=== PATIENT | female | born 1955 | race Caucasian/White ===

== ENCOUNTER → 2017-06-12 18:50 | Outpatient (REF) | payer BC, SELFPAY | LOC: LAB 18:50 | PROVIDERS: Visit Provider Internal Medicine | DX: N39.0 Urinary tract infection, site not specified (principal) | CPT/HCPCS: 87086 ==

== ENCOUNTER → 2017-07-30 14:35 | Outpatient (CLI) | payer BC, SELFPAY ==
--- NOTE | 2017-07-30 14:45 | US_ITS ---
US kidney retroperitoneal comp HISTORY: ITS.REASON: HEMATURIA ORDERING PHYSICIAN: Selwyn Zaidi PATIENT AGE: 62 years FINDINGS: RIGHT KIDNEY:10.5 x 4.5 x 6.2 cm. No hydronephrosis. 19 x 17 mm cyst present in the upper pole. Unremarkable echogenicity LEFT KIDNEY:10 x 6 x 5 cm. No hydronephrosis. 23 mm parapelvic cyst. 42 x 27 mm lower pole left renal cyst. OTHER FINDINGS: Bilateral renal blood flow present. Minimal bilateral renal cortical thinning IMPRESSION: 1. No hydronephrosis. 2. Bilateral renal cysts with minimal cortical thinning
== END ==
PROVIDERS: Family Provider Internal Medicine; PCP Internal Medicine; Visit Provider Internal Medicine
DX: R31.9 Hematuria, unspecified (principal)
CPT/HCPCS: 76770

== ENCOUNTER → 2018-01-20 10:34 | Outpatient (CLI) | payer BC, SELFPAY ==
[2018-01-22 14:18] LABS: Metanephrine, Ur 75 ug/L (Undefined); Normetanephrine, Ur 245 ug/L (Undefined)
[2018-01-22 15:57] LABS: Metanephrine, U,24hr 120 ug/24 hr (45-290); Normetanephr.,U,24h 392 ug/24 hr (82-500)
[2018-01-23 17:42] LABS: VMA, Urine 2.4 mg/L (Undefined)
[2018-01-24 06:41] LABS: VMA, Urine, 24hr 3.8 mg/24 hr (0.0-7.5)
== END ==
PROVIDERS: PCP Internal Medicine; Visit Provider Internal Medicine
DX: I10 Essential (primary) hypertension (principal)
CPT/HCPCS: 83835; 84585

== ENCOUNTER → 2018-01-21 12:58 | Outpatient (CLI) | payer BC, SELFPAY ==
[2018-01-24 02:08] LABS: Dopamine, Urine 178 ug/L (Undefined); Epinephrine, U, 24hr <1 ug/24 hr (0-20); Epinephrine, Urine <1 ug/L (Undefined); Norepinephrine, Ur 21 ug/L (Undefined); Norepinephrine,U,24h 25 ug/24 hr (0-135)
[2018-01-24 06:44] LABS: Dopamine, Ur, 24hr 214 ug/24 hr (0-510)
== END ==
PROVIDERS: PCP Internal Medicine; Visit Provider Internal Medicine
DX: I10 Essential (primary) hypertension (principal)
CPT/HCPCS: 82384

== ENCOUNTER → 2018-07-28 09:55 | Outpatient (CLI) | payer BC, SELFPAY | PROVIDERS: PCP Internal Medicine; Visit Provider Internal Medicine | DX: R07.9 Chest pain, unspecified (principal) | CPT/HCPCS: 93005 ==

== ENCOUNTER → 2019-07-22 09:27 | Outpatient (CLI) | payer BC, SELFPAY ==
--- NOTE | 2019-07-22 09:36 | XR_ITS ---
PROCEDURE: XR HAND RT MIN 3V CLINICAL INDICATION: S/P FALL, INJURY RT HAND/WRIST Medial pain following injury COMPARISON: No exams were available for comparison FINDINGS: No fracture or dislocation. No lytic or blastic change. There is normal mineralization. The joint spaces are well-preserved. No significant degenerative/arthritic changes. No erosive changes evident. Other findings:None. IMPRESSION: No acute findings. Dictated by: José Miguel Ng MD 07/22/2019 11:50 Electronically signed by José Miguel Ng MD in [place] 07/22/2019 11:50
--- NOTE | 2019-07-22 09:36 | XR_ITS ---
PROCEDURE: XR WRIST RT MIN 3V CLINICAL INDICATION: S/P FALL, INJURY RT HAND/WRIST Medial pain following injury COMPARISON: No exams were available for comparison FINDINGS: No fracture or dislocation. No lytic or blastic change. There is normal mineralization. The joint spaces are well-preserved. No significant degenerative/arthritic changes. No erosive changes evident. Other findings:None. IMPRESSION: No acute findings. Dictated by: José Miguel Ng MD 07/22/2019 11:46 Electronically signed by José Miguel Ng MD in [place] 07/22/2019 11:46
== END ==
PROVIDERS: PCP Internal Medicine; Visit Provider Internal Medicine
DX: M79.641 Pain in right hand (principal); M25.531 Pain in right wrist
CPT/HCPCS: 73110; 73130

== ENCOUNTER → 2019-08-13 09:18 | Outpatient (CLI) | payer BC, SELFPAY ==
--- NOTE | 2019-08-13 09:26 | US_ITS ---
PROCEDURE: US KIDNEY CLINICAL INDICATION: ABNORMAL LABS Elevated renal functions COMPARISON: RETROPCM US kidney retroperitoneal comp from 07/30/2017 FINDINGS: The right kidney is [id number]. No hydronephrosis, cortical thinning, or renal mass or perinephric fluid collection is evident. The left kidney is [id number]. No hydronephrosis, cortical thinning, or renal mass or perinephric fluid collection is evident. There is a 3 cm cyst in the upper pole of the right kidney and a 4 cm cyst along the lower pole of the left kidney IMPRESSION: Bilateral renal cyst otherwise negative renal ultrasound Dictated by: José Miguel Ng MD 08/13/2019 10:28 Electronically signed by José Miguel Ng MD in [facility] 08/13/2019 10:28
--- NOTE | 2019-08-13 09:26 | US_ITS ---
PROCEDURE: US URINARY BLADDER CLINICAL INDICATION: ABNORMAL LABS Elevated creatinine COMPARISON: No exams were available for comparison FINDINGS: The bladder has an unremarkable appearance with an estimated volume of 131 mL. No obvious mass. Postvoid images are obtained showing only minimal amount of residual of 4 mm. IMPRESSION: Unremarkable urinary bladder ultrasound Dictated by: José Miguel Ng MD 08/13/2019 10:37 Electronically signed by José Miguel Ng MD in [facility] 08/13/2019 10:37
[2019-08-13 10:47] LABS: Microscopic, Urine URINE MICROSCOPIC (MICROSCOPIC)
[2019-08-13 10:59] LABS: Appearance,Urine CLEAR (Clear); Bilirubin,Urine Negative (Negative); Blood, Urine TRACE-L (Negative); Color,Urine YELLOW (Yellow); Glucose,Urine (UA) Negative (Negative); Ketones,Urine Negative (Negative); Leukocyte Esterase,Urine Negative (Negative); Nitrate,Urine Negative (Negative); PH,Urine 5.5 (5.0-8.5); Protein,Urine Negative (Negative); Specific Gravity, Urine 1.015 (1.005-1.030); Urobilinogen,Urine 0.2 EU/dl (0.2)
[2019-08-13 11:52] LABS: RBC,Urine Occasional #/hpf (0-3)
[2019-08-13 11:53] LABS: Bacteria,Urine Trace /lpf
== END ==
PROVIDERS: PCP Internal Medicine; Visit Provider Internal Medicine
DX: R94.4 Abnormal results of kidney function studies (principal)
CPT/HCPCS: 76770; 76857; 81001

== ENCOUNTER → 2019-08-18 11:43 | Outpatient (CLI) | payer BC, SELFPAY ==
[2019-08-18 18:12] LABS: Collection Time,Urine 24 hours; Total Volume,Urine 2600 mL (600-1600)
[2019-08-18 18:23] LABS: Creatinine 24 Hour,Urine 1508 mg/24hr (630-2500); Creatinine,Urine Random 58 mg/dL (Not Estab.); Total Protein 24 Hour,Urine 234 mg/24 hr (40-90)
[2019-08-18 18:59] LABS: Creatinine Clearance Urine 96.3 mL/min (25-115); Patient Height,Urine 62 inches; Patient Weight,Urine 194 lbs
== END ==
PROVIDERS: Visit Provider Internal Medicine
DX: R94.4 Abnormal results of kidney function studies (principal)
CPT/HCPCS: 36415; 82575; 84155

== ENCOUNTER 2020-04-01 15:43 | Emergency (ER) | payer BC, SELFPAY ==
[2020-04-01 16:22] VITALS: PULSE 87; RESP 16; TEMP 36.8; O2SAT 98; BMI 29.1
--- NOTE | 2020-04-01 16:35 | HMH.EDUTC ---
[facility] Disposition Clinical Impression: Exposure to COVID-19 virus Disposition: Home, Self-Care Condition on Discharge: Good Instructions: DI for COVID-19 (Suspected or Confirmed ), Coronavirus Disease 2019, COVID-19: Testing and Tracing, Preventing the Spread of Coronavirus Discharge Instructions Additional Instructions: *Monitor Temp, Over the counter Motrin or Tylenol as directed/as needed Tylenol every 4 hours and Motrin every 6 hours (as long as your family doctor has told you that you can take it) for fever or pain. and straight to ER if unable to lower temp less than 101.0 after medication given Follow up IMMEDIATELY for new or worsening symptoms or no Noticeable improvement over the next 48-72 hours. 911 for difficulty breathing or swallowing You were tested for today for COVID19 your test result should be back in the next 24-48 hours, you may call to the [facility] to see if your test results are back in the next 48 hours [phone] [facility] hours are 9am-9pm You was given a handout with instructions for Self Quarantine and Self isolation for while you wait on test results and what to do if they are positive If you are positive the Health Dept will be contacting you also Referrals: Selwyn Zaidi [Primary Care Provider] - As needed Time of Disposition: 16:36 Medical Decision Making - Ibrahima Inquiry Pt receiving controlled substance: No Ibrahima was queried for this patient: No Vital Signs: 04/01/20 16:22 Temperature 98.2 F Temperature Source Oral Pulse Rate [Right] 87 Respiratory Rate 16 02 Sat by Pulse Oximetry 98 Oxygen Delivery Method Room Air Orders (Tests/Meds): ORDERS Category Date Time Status Covid-19 Nasal PCR ([facility]) Routine Lab 04/01/20 15:51 Ordered [facility] HPI - General Stated complaint: covid test Time Seen by Provider: 04/01/20 16:35 Mode of Arrival: Ambulatory Source of Information: Patient Limitations: No Limitations Description of Symptoms (Recalled from Triage Doc. by RN): wants covid test. denies any symptoms HEENT Symptoms (Recalled from RN notes): No Resp Symptoms (Recalled from RN notes): No Skin Symptoms (Recalled from RN notes): No MS Symptoms (Recalled from RN notes): No Functional Status (Recalled from RN notes): na - History of Present Illness Provider Complaint: Patient reports that she was recently around someone that tested positive for COVID but not having any symptoms due to close exposure she wanted to come in and get tested - Related Data Previous Rx's Medication Instructions Recorded Azithromycin [Zithromax 250mg 250 mg PO DIRECTED #4 tab 06/28/18 tab] Allergies Allergy/AdvReac Type Severity Reaction Status Date / Time No Known Allergies Allergy Verified 06/28/18 18:52 - Worker's Comp Is this a Worker's Comp case?: No [facility] History - Hepatitis A Screen Drug use history?: No High risk sexual behaviors?: No History of sexually transmitted infection?: No Currently employed?: No Childcare worker?: No Do you have indoor plumbing?: Yes Do you have electricity?: Yes Attestation statement:: This patient has been screened for Hepatitis A risk factors. I have reviewed the patient's past medical history: Yes Laterality Cases: Bilateral: Tonsillectomy - Social History Alcohol Intake: never Occupational Status: employed ROS Obtained: Yes All systems reviewed & no additional complaints, Yes Systems reviewed as appropriate & no additional complaints - Constitutional Constitutional: Reports system reviewed and no additional complaints, except as docu, Denies body ache, Denies chills, Denies fever(s), Denies headache(s) - ENT Ears, Nose, Mouth, and Throat: Reports system reviewed and no additional complaints, except as docu, Denies nasal congestion, Denies nasal discharge, Denies sore throat - Cardiovascular Cardiovascular: Reports system reviewed and no additional complaints, except as docu - Respiratory Respiratory: Yes system
[2020-04-01 16:43] VITALS: BP 0/0; PULSE 87; RESP 16; TEMP 36.8; O2SAT 98
== END 2020-04-01 16:46 | disposition home or self-care (01) ==
PROVIDERS: Emergency Provider Nurse Practitioner; PCP Internal Medicine
DX: Z20.822 Contact with and (suspected) exposure to COVID-19 (principal)
CPT/HCPCS: 99202; G0463; U0003

== ENCOUNTER → 2020-10-25 08:49 | Outpatient (POV) | payer BC, SELFPAY | PROVIDERS: Visit Provider Dermatology | DX: Z00.00 Encounter for general adult medical examination without abnormal findings (principal) ==

== ENCOUNTER → 2021-02-03 15:46 | Outpatient (CLI) | payer MEDICARE, SELFPAY ==
[2021-02-03 17:31] LABS: Alanine Aminotransferase 28 U/L (12-78); Albumin Level 4.5 g/dl (3.5-5.0); Albumin/Globulin Ratio 1.7 (1.1-1.8); Alkaline Phosphatase 57 U/L (38-126); Anion Gap 14.3 mEq/L (5-15); Aspartate Amino Transferase 24 U/L (14-36); Bilirubin,Total 0.3 mg/dl (0.2-1.3); Blood Urea Nitrogen 27 mg/dl (7-17); Calcium 10.2 mg/dl (8.4-10.2); Carbon Dioxide 27 mmol/L (22.0-30.0); Chloride 102 mmol/L (98-107); Chol/HDL Ratio 4.6 (1-3.5); Cholesterol 189 mg/dl (140-200); Estimated Glomerular Filt Rate 56 ml/min (>60); GFR (African American) 67 ML/MIN (>60); Globulin 2.6 g/dL (1.3-3.2); Glucose 97 mg/dl (74-100); HDL Cholesterol 41 mg/dl (40-60); Potassium 4.3 mmoL/L (3.5-5.1); Sodium 139 mmol/L (136-145); Total Protein,Serum 7.1 g/dl (6.3-8.2); Triglycerides 304 mg/dl (30-150); VLDL Cholesterol 61 mg/dL (0-40)
[2021-02-03 17:42] LABS: Direct LDL Cholesterol 98.72 mg/dL (100-129)
== END ==
PROVIDERS: Visit Provider Psychiatry & Neurology Neurology
DX: I10 Essential (primary) hypertension (principal); E78.5 Hyperlipidemia, unspecified; R73.01 Impaired fasting glucose; M17.0 Bilateral primary osteoarthritis of knee
CPT/HCPCS: 80053; 80061

== ENCOUNTER → 2021-07-10 17:01 | Outpatient (CLI) | payer MEDICARE, SELFPAY | PROVIDERS: PCP Internal Medicine; Visit Provider Internal Medicine | DX: N39.0 Urinary tract infection, site not specified (principal); N12 Tubulo-interstitial nephritis, not specified as acute or chronic | CPT/HCPCS: 87086; 87088; 87186 ==

== ENCOUNTER → 2021-08-01 12:43 | Outpatient (CLI) | payer MEDICARE, SELFPAY ==
[2021-08-01 14:17] LABS: Basophils # 0.1 K/mm3 (0-0.2); Basophils % 1.5 % (0.1-2.0); Eosinophils # 0.2 K/mm3 (0.0-0.4); Eosinophils % 3.2 % (0.1-12.0); Hematocrit 38.5 % (37.0-47.0); Hemoglobin 12.6 g/dL (12.2-16.2); Lymphocytes # 1.8 K/mm3 (0.7-4.5); Lymphocytes % 29.9 % (10-50); Mean Corpuscular HGB Conc 32.8 g/dL (31.8-35.4); Mean Corpuscular Hemoglobin 29.8 pg (27.0-31.2); Mean Corpuscular Volume 90.7 fl (81-99); Mean Platelet Volume 8.4 fl (7.4-10.4); Monocytes # 0.4 K/mm3 (0.1-1.0); Monocytes % 5.9 % (1.7-9.3); Neutrophils # 3.6 K/mm3 (1.8-7.8); Neutrophils % 59.5 % (37.0-80.0); Platelet Count 227 K/mm3 (142-424); Red Blood Count 4.25 M/mm3 (4.20-5.40); Red Cell Distribution Width 14.4 % (11.5-17.5); White Blood Count 6.1 K/mm3 (4.8-10.8)
[2021-08-01 14:32] LABS: Alanine Aminotransferase 25 U/L (12-78); Albumin Level 4.2 g/dl (3.5-5.0); Albumin/Globulin Ratio 1.9 (1.1-1.8); Alkaline Phosphatase 57 U/L (38-126); Anion Gap 13.1 mEq/L (5-15); Aspartate Amino Transferase 18 U/L (14-36); Bilirubin,Total 0.4 mg/dl (0.2-1.3); Blood Urea Nitrogen 25 mg/dl (7-17); Calcium 10.5 mg/dl (8.4-10.2); Carbon Dioxide 26 mmol/L (22.0-30.0); Chloride 105 mmol/L (98-107); Cholesterol 186 mg/dl (140-200); Estimated Glomerular Filt Rate 72 ml/min (>60); GFR (African American) 87 ML/MIN (>60); Globulin 2.2 g/dL (1.3-3.2); Glucose 102 mg/dl (74-100); HDL Cholesterol 46 mg/dl (40-60); Potassium 4.1 mmoL/L (3.5-5.1); Sodium 140 mmol/L (136-145); Total Protein,Serum 6.4 g/dl (6.3-8.2); Triglycerides 292 mg/dl (30-150); VLDL Cholesterol 58 mg/dL (0-40)
[2021-08-01 14:43] LABS: Direct LDL Cholesterol 81.35 mg/dL (100-129)
[2021-08-01 15:02] LABS: Thyroid Stimulating Hormone 2.48 uIU/mL (0.465-4.68)
== END ==
PROVIDERS: PCP Internal Medicine; Visit Provider Internal Medicine
DX: I10 Essential (primary) hypertension (principal); R73.01 Impaired fasting glucose; E78.5 Hyperlipidemia, unspecified; E03.9 Hypothyroidism, unspecified; K21.9 Gastro-esophageal reflux disease without esophagitis; M17.0 Bilateral primary osteoarthritis of knee
CPT/HCPCS: 80053; 80061; 84443; 85025

== ENCOUNTER 2021-11-13 04:31 | Emergency (ER) | payer MEDICARE, SELFPAY ==
[2021-11-13 04:32] VITALS: BP 143/68; PULSE 83; RESP 18; TEMP 36.5; O2SAT 100; BMI 31.2
[2021-11-13 04:39] VITALS: BMI 31.2
[2021-11-13 04:43] LABS: Microscopic, Urine URINE MICROSCOPIC (MICROSCOPIC)
[2021-11-13 04:54] LABS: Appearance,Urine TURBID (Clear); Bilirubin,Urine Negative (Negative); Color,Urine RED (Yellow); Glucose,Urine (UA) Negative (Negative); Ketones,Urine Negative (Negative); Leukocyte Esterase,Urine TRACE (Negative); Nitrate,Urine Negative (Negative); PH,Urine 6.5 (5.0-8.5); Protein,Urine 2+ (Negative); Specific Gravity, Urine >= 1.030 (1.005-1.030); Urobilinogen,Urine 0.2 EU/dl (0.2)
[2021-11-13 04:56] LABS: Blood, Urine 3+ (Negative); RBC,Urine TNTC #/hpf (0-3)
[2021-11-13 05:17] LABS: Alanine Aminotransferase 24 U/L (12-78); Albumin Level 4.5 g/dl (3.5-5.0); Albumin/Globulin Ratio 1.6 (1.1-1.8); Alkaline Phosphatase 65 U/L (38-126); Anion Gap 11.8 mEq/L (5-15); Aspartate Amino Transferase 21 U/L (14-36); Blood Urea Nitrogen 26 mg/dl (7-17); Calcium 10.7 mg/dl (8.4-10.2); Carbon Dioxide 26 mmol/L (22.0-30.0); Chloride 104 mmol/L (98-107); Creatinine Clearance Estimated 62 mL/min (50-200); Estimated Glomerular Filt Rate 50 ml/min (>60); GFR (African American) 60 ML/MIN (>60); Globulin 2.8 g/dL (1.3-3.2); Glucose 108 mg/dl (74-100); Potassium 3.8 mmoL/L (3.5-5.1); Sodium 138 mmol/L (136-145); Total Protein,Serum 7.3 g/dl (6.3-8.2)
--- NOTE | 2021-11-13 05:21 | CT_ITS ---
PROCEDURE INFORMATION: Exam: CT Abdomen And Pelvis With Contrast Exam date and time: 11/13/2021 5:54 AM Age: 66 years old Clinical indication: Abdominal pain; Other: Urinary pain TECHNIQUE: Imaging protocol: Computed tomography of the abdomen and pelvis with contrast. Radiation optimization: All CT scans at this facility use at least one of these dose optimization techniques: automated exposure control; mA and/or kV adjustment per patient size (includes targeted exams where dose is matched to clinical indication); or iterative reconstruction. Contrast material: ISOVUE; Contrast volume: 75 ml; Contrast route: IV; COMPARISON: RUQ US RUQ-(ABD LTD)1ORGAN/QUAD/FU 07/07/2015 8:27 AM FINDINGS: Liver: Normal. No mass. Gallbladder and bile ducts: The patient is status post cholecystectomy. Pancreas: Normal. No ductal dilation. Spleen: Normal. No splenomegaly. Adrenal glands: Normal. No mass. Kidneys and ureters: Prominent bilateral exophytic but simple appearing renal cysts are noted the largest measuring 4.0 cm in left mid to lower pole. No hydronephrosis hydroureter or urolithiasis is noted. Stomach and bowel: Unremarkable. No obstruction. No mucosal thickening. Appendix: No evidence of appendicitis. Intraperitoneal space: Unremarkable. No free air. No significant fluid collection. Vasculature: Unremarkable. No abdominal aortic aneurysm. Lymph nodes: Unremarkable. No enlarged lymph nodes. Urinary bladder: Unremarkable as visualized. Reproductive: Patient is status post hysterectomy. Bones/joints: Unremarkable. No acute fracture. Soft tissues: Unremarkable. IMPRESSION: 1. No acute process to explain the patient's abdominal pain. 2. Status post cholecystectomy. 3. Simple bilateral renal cysts. No evidence of renal stone or obstruction. 4. Status post hysterectomy COMMENTS: Consistent with the [employer]'s Incidental Findings Committee white paper (J Am Leroy Radiol 2018): Any incidental renal lesion less than 1 cm or classified as too small to characterize, or any incidental cystic renal lesion characterized as simple-appearing, is likely benign. No follow-up imaging is recommended for these lesions per consensus recommendations based on imaging criteria.
[2021-11-13 05:30] VITALS: BP 121/56; PULSE 69; O2SAT 95
[2021-11-13 05:34] LABS: Basophils # 0.1 K/mm3 (0-0.2); Basophils % 1.1 % (0.1-2.0); Eosinophils # 0.1 K/mm3 (0.0-0.4); Eosinophils % 1.4 % (0.1-12.0); Hematocrit 40.9 % (37.0-47.0); Hemoglobin 12.9 g/dL (12.2-16.2); Lymphocytes # 2.1 K/mm3 (0.7-4.5); Lymphocytes % 27.5 % (10-50); Mean Corpuscular HGB Conc 31.5 g/dL (31.8-35.4); Mean Corpuscular Hemoglobin 28.8 pg (27.0-31.2); Mean Corpuscular Volume 91.4 fl (81-99); Mean Platelet Volume 7.3 fl (7.4-10.4); Monocytes # 0.4 K/mm3 (0.1-1.0); Monocytes % 5.4 % (1.7-9.3); Neutrophils % 64.7 % (37.0-80.0); Platelet Count 238 K/mm3 (142-424); Red Blood Count 4.47 M/mm3 (4.20-5.40); Red Cell Distribution Width 13.5 % (11.5-17.5); White Blood Count 7.7 K/mm3 (4.8-10.8)
[2021-11-13 05:39] LABS: Bilirubin,Total 0.1 mg/dl (0.2-1.3)
--- NOTE | 2021-11-13 06:06 | HMH.EDUROGF ---
ED Disposition Clinical Impression: Urinary tract infection Qualifiers: Urinary tract infection type: site unspecified Hematuria presence: with hematuria Qualified Code(s): N39.0 - Urinary tract infection, site not specified; R31.9 - Hematuria, unspecified Disposition: Home, Self-Care Condition on Discharge: Good Instructions: DI for Urinary Tract Infection (UTI) Additional Instructions: use meds and see pcp for follow up and urine culture results Prescriptions: levoFLOXacin [Levaquin 500mg tab] 500 mg PO DAILY #7 tab Transmission Status: Pending to [facility] Referrals: Selwyn Zaidi MD [Primary Care Provider] - - Critical Care Critical Care Time: No Attestation: On 11/13/21, the high probability of a clinically significant, sudden or life threatening deterioration of the following system(s) required my full and direct attention, intervention and personal management. The time I documented below is in addition to time spent performing reported procedures but includes the following listed in this critical care notation. Medical Decision Making - Medical Records Medical records reviewed: Yes: I reviewed the patient's medical records. - Ibrahima Inquiry Pt receiving controlled substance: No Vital Signs: 11/13/21 04:32 11/13/21 05:30 11/13/21 06:20 Temperature 97.7 F Temperature Source Oral Pulse Rate 69 70 Pulse Rate [Left Radial] 83 Respiratory Rate 18 Blood Pressure 121/56 L 109/88 L Blood Pressure [Right Arm] 143/68 H Blood Pressure Mean [Right Arm] 93 Blood Pressure Source [Right Arm] Automatic Cuff Blood Pressure Position [Right Arm] Sitting 02 Sat by Pulse Oximetry 100 95 98 Oxygen Delivery Method Room Air Room Air Room Air 11/13/21 06:30 Temperature Temperature Source Pulse Rate 69 Pulse Rate [Left Radial] Respiratory Rate Blood Pressure 125/60 Blood Pressure [Right Arm] Blood Pressure Mean [Right Arm] Blood Pressure Source [Right Arm] Blood Pressure Position [Right Arm] 02 Sat by Pulse Oximetry 95 Oxygen Delivery Method Room Air - Lab Data Lab results reviewed: Yes: I reviewed the patient's lab results. Lab Results 11/13/21 04:39: Urine Color Red, Urine Appearance Turbid, Urine pH 6.5, Ur Specific [place] >= 1.030, Urine Protein 2+, Urine Glucose (UA) Negative, Urine Ketones Negative, Urine Blood 3+, Urine Nitrate Negative, Urine Bilirubin Negative, Urine Urobilinogen 0.2, Ur Leukocyte Esterase Trace, Urine RBC Tntc, Urine WBC 10-20 11/13/21 05:02: WBC 7.7, RBC 4.47, Hgb 12.9, Hct 40.9, MCV 91.4, MCH 28.8, MCHC 31.5 L, RDW 13.5, Plt Count 238, MPV 7.3 L, Neut % (Auto) 64.7, Lymph % (Auto) 27.5, Hod[place]eman % (Auto) 5.4, Eos % (Auto) 1.4, Baso % (Auto) 1.1, Neut # (Auto) 5.0, Lymph # (Auto) 2.1, Hodgeman # (Auto) 0.4, Eos # (Auto) 0.1, Baso # (Auto) 0.1 11/13/21 05:02: Sodium 138, Potassium 3.8, Chloride 104, Carbon Dioxide 26, Anion Gap 11.8, BUN 26 H, Creatinine 1.10 H, Estimated Creat Clear 62, Estimated GFR 50 L, Est GFR ( Amer) 60, Glucose 108 H, Calcium 10.7 H, Total Bilirubin 0.1 L, AST 21, ALT 24, Alkaline Phosphatase 65, Total Protein 7.3, Albumin 4.5, Globulin 2.8, Albumin/Globulin Ratio 1.6 Result diagrams: 11/13/21 05:02 11/13/21 05:02 Orders (Tests/Meds): ED MEDICATIONS Generic Name Dose Route Start Last Admin Trade Name Freq PRN Reason Stop Dose Admin Ceftriaxone Sodium 1 gm/ 50 mls @ 100 mls/hr 11/13/21 06:30 11/13/21 06:33 Sodium Chloride IV 11/27/21 06:29 100 mls/hr Q24H ERIKA Administration Sodium Chloride 10 ml 11/13/21 04:48 Sodium Chloride 0.9% 10ml Flush Syringe IV 12/13/21 04:47 NEEDED PRN Maintain IV Site Discontinued Medications Generic Name Dose Route Start Last Admin Trade Name Freq PRN Reason Stop Dose Admin Sodium Chloride 1,000 mls @ 999 mls/hr 11/13/21 05:00 11/13/21 05:05 Sod Chlor 0.9% 1000ml Bag IV 11/13/21 06:00 999 mls/hr .Q1H1M ERIKA Administration Iopamidol 7
[2021-11-13 06:20] VITALS: BP 109/88; PULSE 70; O2SAT 98
--- NOTE | 2021-11-13 06:20 | PC.NURSE ---
PT AWARE OF EXPECTED WAIT TIMES AND PLAN OF CARE. WARM BLANKET PROVIDED. WCM.
--- NOTE | 2021-11-13 06:20 | PC.NURSE ---
PT REPORTS THAT PAIN HAS IMPROVED. PT UPDATED WITH EXPECTED WAIT TIMES. WCM.
[2021-11-13 06:30] VITALS: BP 125/60; PULSE 69; O2SAT 95
[2021-11-13 06:42] VITALS: BP 125/60; PULSE 70; RESP 17; TEMP 36.6; O2SAT 98
== END 2021-11-13 07:00 | disposition home or self-care (01) ==
PROVIDERS: Emergency Provider Emergency Medicine; PCP Internal Medicine
DX: N39.0 Urinary tract infection, site not specified (principal); R31.9 Hematuria, unspecified
CPT/HCPCS: 74177; 80053; 81001; 85025; 87086; 87088; 87186; 96361; 96374; 96375; 99284; J0696; Q9967

== ENCOUNTER 2021-12-16 13:43 | Emergency (ER) | payer MEDICARE, SELFPAY ==
[2021-12-16 14:07] VITALS: BP 120/75; PULSE 96; RESP 16; TEMP 36.9; O2SAT 98; BMI 28.8
[2021-12-16 14:14] LABS: Apearance,Urine Clear (Clear); Color,Urine Red (Yellow)
[2021-12-16 14:15] LABS: Bilirubin,Urine 1+ (Negative); Blood, Urine Trace (Negative); Glucose,Urine (UA) 100 (Negative); Ketones,Urine TRACE (Negative); Protein,Urine 1+ (Negative); UTC Leukocyte Esterase,Urine 3+ (Negative); UTC Nitrate,Urine Positive (Negative); Urobilinogen,Urine 4 EU/dl (0.2)
--- NOTE | 2021-12-16 15:03 | EXP.UTC ---
Discharge Plan Disposition Patient Disposition: Home, Self-Care Condition: Good Prescriptions Prescriptions: New nitrofurantoin monohyd/m-cryst [Macrobid] 100 mg capsule 100 mg PO Q12H 7 Days Qty: 14 0RF Rx Instructions: must administer with a meal/food No Action trazodone 100 MG tablet 100 mg PO QID losartan-hydrochlorothiazide 1 EACH tablet 1 tab PO DAILY bupropion HCl (smoking deter) 150 MG tablet extended release 12 hr 150 mg PO DAILY pravastatin 80 MG tablet 80 mg PO HS levofloxacin 500 MG tablet 500 mg PO DAILY Qty: 7 0RF Referrals Follow up/Referrals: Selwyn Zaidi MD [Primary Care Provider] - See instructions Clinical Impressions Clinical Impression: Urinary tract infection Qualifiers: Urinary tract infection type: acute cystitis Hematuria presence: with hematuria Qualified Code(s): N30.01 - Acute cystitis with hematuria Instructions Patient Instructions: DI for Urinary Tract Infection (UTI) Discharge ED Provider: Valencia Mari [facility] General Stated complaint: Possible UTI Mode of Arrival: Ambulatory Time Seen by Provider: 12/16/21 15:03 Description of Symptoms (Recalled from Triage Doc. by RN): pt states that she woke up last night to use the restroom and noticed blood in her urine. States she has had 3 UTI's in the past few months. Denies any bladder pressure or abd pain and that she is having urgency. HEENT Symptoms (Recalled from RN notes): No Resp Symptoms (Recalled from RN notes): No Skin Symptoms (Recalled from RN notes): No MS Symptoms (Recalled from RN notes): No Functional Status (Recalled from RN notes): wnl History of Present Illness Provider Complaint: Pt states that she noticed blood in her urine last night and has had a few UTIs over the last few months. She has taken Azo for her symptoms. She denies abdominal or back pain. Related Data Home Medications Medication Instructions Recorded Confirmed bupropion HCl (smoking deter) 150 150 mg PO DAILY Depression 11/13/21 11/13/21 mg tablet,12 hr sustained-release(smoking deterrent) losartan 50 mg-hydrochlorothiazide 1 tab PO DAILY Hypertension 11/13/21 11/13/21 12.5 mg tablet pravastatin 80 mg tablet 80 mg PO HS Cholesterol 11/13/21 11/13/21 trazodone 100 mg tablet 100 mg PO QID Insomnia 11/13/21 11/13/21 Previous Rx's Medication Instructions Recorded nitrofurantoin 100 mg PO Q12H 7 days #14 caps 12/16/21 monohydrate/macrocrystals 100 mg capsule (Macrobid) Allergies Allergy/AdvReac Type Severity Reaction Status Date / Time No Known Allergies Allergy Verified 06/28/18 18:52 Worker's Comp Is this a Worker's Comp case?: No PFSH PFSH Medical History (Updated 12/16/21 @ 15:18 by Valencia Mari APRN) Gallbladder disease Hypertension Urinary tract infection Surgical History (Updated 12/16/21 @ 14:13 by Jack Alexander RN) History of hysterectomy Social History Smoking Status: Former smoker alcohol intake: never current occupational status: employed Travel in the last 8 weeks: None ROS Obtained: Yes All systems reviewed & no additional complaints except as documented Constitutional Constitutional: Reports system reviewed and no additional complaints, except as documented Eyes Eyes: Reports system reviewed and no additional complaints, except as documented ENT Ears, Nose, Mouth, and Throat: Reports system reviewed and no additional complaints, except as documented Cardiovascular Cardiovascular: Reports system reviewed and no additional complaints, except as documented Respiratory Respiratory: Reports system reviewed and no additional complaints, except as documented Gastrointestinal Gastrointestingal: Reports system reviewed and no additional complaints, except as documented Genitourinary Female Genitourinary: Reports as per HPI, Denies flank pain, Reports hematuria, Denies pelvic pain, Denies urinary frequency, Denies urinary inc
[2021-12-16 15:19] VITALS: BP 120/75; PULSE 96; RESP 16; TEMP 36.9
== END 2021-12-16 15:21 | disposition home or self-care (01) ==
PROVIDERS: Emergency Provider Nurse Practitioner Family; PCP Internal Medicine
DX: N30.01 Acute cystitis with hematuria (principal); I10 Essential (primary) hypertension; K82.9 Disease of gallbladder, unspecified; Z79.899 Other long term (current) drug therapy; Z87.891 Personal history of nicotine dependence
CPT/HCPCS: 81003; 87086; 87088; 87186; 99213; G0463

== ENCOUNTER → 2022-01-30 13:18 | Outpatient (CLI) | payer MEDICARE, SELFPAY ==
[2022-01-30 15:48] LABS: Alanine Aminotransferase 18 U/L (12-78); Albumin Level 4.2 g/dl (3.5-5.0); Alkaline Phosphatase 65 U/L (38-126); Anion Gap 15.4 mEq/L (5-15); Aspartate Amino Transferase 17 U/L (14-36); Blood Urea Nitrogen 33 mg/dl (7-17); Calcium 10.6 mg/dl (8.4-10.2); Carbon Dioxide 27 mmol/L (22.0-30.0); Chloride 103 mmol/L (98-107); Cholesterol 178 mg/dl (140-200); Estimated Glomerular Filt Rate 38 ml/min (>60); GFR (African American) 46 ML/MIN (>60); Globulin 2.2 g/dL (1.3-3.2); HDL Cholesterol 44 mg/dl (40-60); Potassium 4.4 mmoL/L (3.5-5.1); Sodium 141 mmol/L (136-145); Total Protein,Serum 6.4 g/dl (6.3-8.2)
[2022-01-30 15:49] LABS: Albumin/Globulin Ratio 1.9 (1.1-1.8); Bilirubin,Total 0.1 mg/dl (0.2-1.3); Triglycerides 208 mg/dl (30-150); VLDL Cholesterol 42 mg/dL (0-40)
[2022-01-30 15:50] LABS: Glucose 109 mg/dl (74-100)
[2022-01-30 15:58] LABS: Direct LDL Cholesterol 89.97 mg/dL (100-129)
== END ==
PROVIDERS: PCP Internal Medicine; Visit Provider Internal Medicine
DX: I10 Essential (primary) hypertension (principal); R73.01 Impaired fasting glucose; E78.5 Hyperlipidemia, unspecified
CPT/HCPCS: 80053; 80061

== ENCOUNTER → 2022-02-13 10:33 | Outpatient (CLI) | payer MEDICARE, SELFPAY | PROVIDERS: PCP Internal Medicine; Visit Provider Internal Medicine | DX: Z20.822 Contact with and (suspected) exposure to COVID-19 (principal) | CPT/HCPCS: C9803; U0003; U0005 ==

== ENCOUNTER → 2022-07-31 12:25 | Outpatient (CLI) | payer MEDICARE, SELFPAY ==
[2022-07-31 13:45] LABS: Basophils % 0.5 % (0.1-2.0); Eosinophils # 0.1 K/mm3 (0.0-0.4); Eosinophils % 1.1 % (0.1-12.0); Hematocrit 38.9 % (37.0-47.0); Hemoglobin 12.7 g/dL (12.2-16.2); Lymphocytes # 1.5 K/mm3 (0.7-4.5); Lymphocytes % 28.2 % (10-50); Mean Corpuscular HGB Conc 32.6 g/dL (31.8-35.4); Mean Corpuscular Hemoglobin 29.8 pg (27.0-31.2); Mean Corpuscular Volume 91.4 fl (81-99); Mean Platelet Volume 7.4 fl (7.4-10.4); Monocytes # 0.4 K/mm3 (0.1-1.0); Monocytes % 6.4 % (1.7-9.3); Neutrophils # 3.5 K/mm3 (1.8-7.8); Neutrophils % 63.8 % (37.0-80.0); Platelet Count 245 K/mm3 (142-424); Red Blood Count 4.26 M/mm3 (4.20-5.40); Red Cell Distribution Width 13.6 % (11.5-17.5); White Blood Count 5.5 K/mm3 (4.8-10.8)
[2022-07-31 14:08] LABS: Chloride 96 mmol/L (98-107); Sodium 138 mmol/L (136-145)
[2022-07-31 14:09] LABS: Potassium 4.2 mmoL/L (3.5-5.1)
[2022-07-31 14:11] LABS: Alanine Aminotransferase 18 U/L (12-78); Albumin Level 4.4 g/dl (3.5-5.0); Alkaline Phosphatase 49 U/L (38-126); Anion Gap 17.2 mEq/L (5-15); Aspartate Amino Transferase 17 U/L (14-36); Bilirubin,Total 0.3 mg/dl (0.2-1.3); Blood Urea Nitrogen 24 mg/dl (7-17); Calcium 10.3 mg/dl (8.4-10.2); Carbon Dioxide 29 mmol/L (22.0-30.0); Chol/HDL Ratio 2.9 (1-3.5); Cholesterol 167 mg/dl (140-200); Estimated Glomerular Filt Rate 55 ml/min (>60); GFR (African American) 67 ML/MIN (>60); Globulin 2.2 g/dL (1.3-3.2); Glucose 94 mg/dl (74-100); HDL Cholesterol 58 mg/dl (40-60); Total Protein,Serum 6.6 g/dl (6.3-8.2); Triglycerides 186 mg/dl (30-150); VLDL Cholesterol 37 mg/dL (0-40)
[2022-07-31 14:23] LABS: Direct LDL Cholesterol 82.56 mg/dL (100-129)
[2022-07-31 14:41] LABS: Thyroid Stimulating Hormone 0.71 uIU/mL (0.465-4.68)
== END ==
PROVIDERS: PCP Internal Medicine; Visit Provider Internal Medicine
DX: I10 Essential (primary) hypertension (principal); R73.01 Impaired fasting glucose; E78.5 Hyperlipidemia, unspecified; F41.9 Anxiety disorder, unspecified
CPT/HCPCS: 80053; 80061; 84443; 85025

== ENCOUNTER 2023-01-26 11:28 | Emergency (ER) | payer MEDICARE, SELFPAY ==
[2023-01-26 11:35] VITALS: BP 131/86; PULSE 78; RESP 18; TEMP 37.6; O2SAT 99; BMI 28.5
--- NOTE | 2023-01-26 12:04 | EXP.UTC ---
Discharge Plan Disposition Patient Disposition: Home, Self-Care Condition: Good Prescriptions Prescriptions: New amoxicillin [amoxicillin] 500 mg tablet 500 mg PO BID 10 Days Qty: 20 0RF No Action trazodone 100 MG tablet 100 mg PO QID bupropion HCl (smoking deter) 150 MG tablet extended release 12 hr 150 mg PO DAILY pravastatin 80 MG tablet 80 mg PO HS losartan 50 mg tablet 50 mg PO DAILY Patient Comments: TAKE ONE TABLET BY MOUTH ONCE DAILY triamterene-hydrochlorothiazid 37.5-25 mg capsule 1 cap PO DAILY Patient Comments: TAKE ONE CAPSULE BY MOUTH EVERY DAY pantoprazole 40 mg tablet,delayed release (DR/EC) 40 mg PO DAILY Patient Comments: TAKE ONE TABLET BY MOUTH EVERY DAY AT BEDTIME diltiazem HCl [Cartia XT] 120 mg capsule,extended release 24hr 120 mg PO DAILY Patient Comments: TAKE ONE CAPSULE BY MOUTH EVERY DAY montelukast 10 mg tablet 10 mg PO DAILY Patient Comments: TAKE ONE TABLET BY MOUTH EVERY DAY albuterol sulfate 90 mcg/actuation HFA aerosol inhaler 2 puff INHALATION NEEDED PRN (Reason: Wheezing) Patient Comments: INHALE 2 PUFFS BY MOUTH EVERY 4 TO 6 HOURS NEEDED FOR COUGH, WHEEZING, SHORTNESS OF BREATH, OR TIGHTNESS IN CHEST levocetirizine 5 mg tablet 1 mg PO DAILY Patient Comments: TAKE 1 TO 2 TABLET(S) BY MOUTH EVERY DAY DIRECTED FOR increased drainage Referrals Follow up/Referrals: Selwyn Zaidi MD [Primary Care Provider] - See instructions Activity Restrictions/Add. Instructions Additional Instructions/Restrictions: Start antibiotic patient to take as ordered for a full length of time even if you feel better. Sinus infections do not get better overnight. It may take 2-3 days to notice much improvement so be sure to use conservative measures as discussed for symptoms. Flonase 1 spray each nostril daily to help with nasal congestion, sinus and ear pressure/information Increase fluids Humidifier/vaporizer as needed Tylenol and ibuprofen as needed for fever or pain. If symptoms do not improve or get worse return or be seen in the ER Follow-up with primary care this week Clinical Impressions Clinical Impression: Otitis media Qualifiers: Otitis media type: suppurative Chronicity: acute Laterality: left Recurrence: non-recurrent Spontaneous tympanic membrane rupture: without spontaneous rupture Qualified Code(s): H66.002 - Acute suppurative otitis media without spontaneous rupture of ear drum, left ear Sinusitis, acute Qualifiers: Sinusitis location: maxillary Recurrence: non-recurrent Qualified Code(s): J01.00 - Acute maxillary sinusitis, unspecified Instructions Patient Instructions: DI for Sinusitis, Middle Ear Infection Discharge ED [facility] [place] HPI General Stated complaint: sore throat, Lt ear pain Mode of Arrival: Ambulatory Source of Information: Patient Limitations: No Limitations Time Seen by Provider: 01/26/23 12:04 Description of Symptoms (Recalled from Triage Doc. by RN): sore throat, congested nose, body aches, and CESPEDES HEENT Symptoms (Recalled from RN notes): Yes Resp Symptoms (Recalled from RN notes): No Skin Symptoms (Recalled from RN notes): No MS Symptoms (Recalled from RN notes): No Functional Status (Recalled from RN notes): n/a History of Present Illness Provider Complaint: 67 yr old female presents for body aches, green nasal congestion, sore throat, and ecspedes Related Data Home Medications Medication Instructions Recorded Confirmed bupropion HCl (smoking deter) 150 150 mg PO DAILY Depression 11/13/21 01/26/23 mg tablet,12 hr sustained-release(smoking deterrent) pravastatin 80 mg tablet 80 mg PO HS Cholesterol 11/13/21 01/26/23 trazodone 100 mg tablet 100 mg PO QID Insomnia 11/13/21 01/26/23 albuterol sulfate 90 mcg/actuation 2 puff inhalation NEEDED PRN 01/26/23 01/26/23 aerosol inhaler Wheezing diltiazem
[2023-01-26 12:21] LABS: UTC Influenza A Antigen Negative (Negative); UTC Strep Screen (Rapid) Negative (Negative)
[2023-01-26 12:22] LABS: UTC Influenza B Antigen Negative (Negative)
[2023-01-26 12:39] VITALS: BP 131/86; PULSE 78; RESP 18; TEMP 37.6; O2SAT 99
== END 2023-01-26 12:39 | disposition home or self-care (01) ==
PROVIDERS: Emergency Provider Nurse Practitioner Family; PCP Internal Medicine
DX: H66.002 Acute suppurative otitis media without spontaneous rupture of ear drum, left ear (principal); J01.00 Acute maxillary sinusitis, unspecified; I10 Essential (primary) hypertension; Z87.891 Personal history of nicotine dependence
CPT/HCPCS: 87804; 87880; 96372; 99212; 99214; G0463

== ENCOUNTER → 2023-02-01 12:30 | Outpatient (CLI) | payer MEDICARE, SELFPAY ==
[2023-02-01 13:50] LABS: Alanine Aminotransferase 20 U/L (12-78); Albumin Level 4.2 g/dl (3.5-5.0); Albumin/Globulin Ratio 1.6 (1.1-1.8); Alkaline Phosphatase 58 U/L (38-126); Anion Gap 15.7 mEq/L (5-15); Aspartate Amino Transferase 20 U/L (14-36); Blood Urea Nitrogen 19 mg/dl (7-17); Calcium 10.4 mg/dl (8.4-10.2); Carbon Dioxide 28 mmol/L (22.0-30.0); Chloride 100 mmol/L (98-107); Chol/HDL Ratio 4.1 (1-3.5); Cholesterol 167 mg/dl (140-200); Estimated Glomerular Filt Rate 62 ml/min (>60); GFR (African American) 76 ML/MIN (>60); Globulin 2.7 g/dL (1.3-3.2); Glucose 94 mg/dl (74-100); HDL Cholesterol 41 mg/dl (40-60); Potassium 3.7 mmoL/L (3.5-5.1); Sodium 140 mmol/L (136-145); Total Protein,Serum 6.9 g/dl (6.3-8.2); Triglycerides 209 mg/dl (30-150); VLDL Cholesterol 42 mg/dL (0-40)
[2023-02-01 13:58] LABS: Bilirubin,Total 0.1 mg/dl (0.2-1.3)
[2023-02-01 14:01] LABS: Direct LDL Cholesterol 80.92 mg/dL (100-129)
== END ==
PROVIDERS: PCP Internal Medicine; Visit Provider Internal Medicine
DX: I10 Essential (primary) hypertension (principal); E78.5 Hyperlipidemia, unspecified; R73.01 Impaired fasting glucose; Z87.891 Personal history of nicotine dependence
CPT/HCPCS: 80053; 80061

== ENCOUNTER 2023-02-17 10:02 | Emergency (ER) | payer MEDICARE, SELFPAY ==
[2023-02-17 10:10] VITALS: BP 122/76; PULSE 77; RESP 18; TEMP 36.5; O2SAT 98; BMI 28.6
[2023-02-17 10:34] LABS: Apearance,Urine Turbid (Clear); Bilirubin,Urine Negative (Negative); Blood, Urine 3+ (Negative); Color,Urine Dark Yellow (Yellow); Glucose,Urine (UA) Negative (Negative); Ketones,Urine Negative (Negative); Protein,Urine 1+ (Negative); UTC Leukocyte Esterase,Urine 1+ (Negative); UTC Nitrate,Urine Negative (Negative); Urobilinogen,Urine 0.2 EU/dl (0.2)
--- NOTE | 2023-02-17 10:35 | EXP.UTC ---
Discharge Plan Disposition Patient Disposition: Home, Self-Care Condition: Good Prescriptions Prescriptions: New phenazopyridine [Pyridium] 200 mg tablet 200 mg PO Q8H 2 Days Qty: 6 0RF sulfamethoxazole-trimethoprim [Bactrim DS] 800-160 mg Tablet 1 tab PO BID Qty: 14 0RF No Action trazodone 100 MG tablet 100 mg PO QID bupropion HCl (smoking deter) 150 MG tablet extended release 12 hr 150 mg PO DAILY pravastatin 80 MG tablet 80 mg PO HS losartan 50 mg tablet 50 mg PO DAILY Patient Comments: TAKE ONE TABLET BY MOUTH ONCE DAILY triamterene-hydrochlorothiazid 37.5-25 mg capsule 1 cap PO DAILY Patient Comments: TAKE ONE CAPSULE BY MOUTH EVERY DAY pantoprazole 40 mg tablet,delayed release (DR/EC) 40 mg PO DAILY Patient Comments: TAKE ONE TABLET BY MOUTH EVERY DAY AT BEDTIME diltiazem HCl [Cartia XT] 120 mg capsule,extended release 24hr 120 mg PO DAILY Patient Comments: TAKE ONE CAPSULE BY MOUTH EVERY DAY montelukast 10 mg tablet 10 mg PO DAILY Patient Comments: TAKE ONE TABLET BY MOUTH EVERY DAY albuterol sulfate 90 mcg/actuation HFA aerosol inhaler 2 puff INHALATION NEEDED PRN (Reason: Wheezing) Patient Comments: INHALE 2 PUFFS BY MOUTH EVERY 4 TO 6 HOURS NEEDED FOR COUGH, WHEEZING, SHORTNESS OF BREATH, OR TIGHTNESS IN CHEST levocetirizine 5 mg tablet 1 mg PO DAILY Patient Comments: TAKE 1 TO 2 TABLET(S) BY MOUTH EVERY DAY DIRECTED FOR increased drainage Referrals Follow up/Referrals: Selwyn Zaidi MD [Primary Care Provider] - See instructions Activity Restrictions/Add. Instructions Additional Instructions/Restrictions: Drink plenty of fluids. Take tylenol or ibuprofen for pain or fever. Take the medications as directed. Follow up with your regular doctor. GO TO THE ER FOR ANY WORSENING SYMPTOMS The pyridium will make your urine turn orange, this is an expected side effect. It will stain your clothes if it comes into contact with them. We will culture the urine. That will tell what bacteria is causing your infection and which antibiotics will treat it best. Sometimes the first antibiotic we prescribe turns out to not work against different bacteria. So, make sure you follow up within 3 days if you are not getting better. Clinical Impressions Clinical Impression: Urinary tract infection Instructions Patient Instructions: Urinary Tract Infection, Urine Culture, DI for Urinary Tract Infection (UTI), Phenazopyridine Discharge ED Provider: Paulo Winn [facility] General Stated complaint: bladder pain, reddish frequant urine Mode of Arrival: Ambulatory Source of Information: Patient Limitations: No Limitations Time Seen by Provider: 02/17/23 10:35 Description of Symptoms (Recalled from Triage Doc. by RN): blood tinged urine, pressure, urinary frequency, and burning when urinating. HEENT Symptoms (Recalled from RN notes): No Resp Symptoms (Recalled from RN notes): No Skin Symptoms (Recalled from RN notes): No MS Symptoms (Recalled from RN notes): No Functional Status (Recalled from RN notes): n/a History of Present Illness Provider Complaint: She states that for the past 2 days she has had low back pain, dysuria and urinary frequency. Related Data Home Medications Medication Instructions Recorded Confirmed bupropion HCl (smoking deter) 150 150 mg PO DAILY Depression 11/13/21 02/17/23 mg tablet,12 hr sustained-release(smoking deterrent) pravastatin 80 mg tablet 80 mg PO HS Cholesterol 11/13/21 02/17/23 trazodone 100 mg tablet 100 mg PO QID Insomnia 11/13/21 02/17/23 albuterol sulfate 90 mcg/actuation 2 puff inhalation NEEDED PRN 01/26/23 02/17/23 aerosol inhaler Wheezing diltiazem HCl 120 mg 120 mg PO DAILY 01/26/23 02/17/23 capsule,extended release 24 hr (Cartia XT) levocetirizine 5 mg tablet 1 mg PO DAILY 01/26/23 02/17/23 losartan 50 mg
[2023-02-17 10:49] VITALS: BP 122/76; PULSE 77; RESP 18; TEMP 36.5; O2SAT 98
== END 2023-02-17 10:49 | disposition home or self-care (01) ==
PROVIDERS: Emergency Provider Nurse Practitioner Family; PCP Internal Medicine
DX: N39.0 Urinary tract infection, site not specified (principal); B96.4 Proteus (mirabilis) (morganii) as the cause of diseases classified elsewhere; M54.59 Other low back pain; R31.9 Hematuria, unspecified; I10 Essential (primary) hypertension; Z87.891 Personal history of nicotine dependence
CPT/HCPCS: 81003; 87086; 99212; 99214; G0463

== ENCOUNTER 2023-06-12 19:04 | Outpatient (CLI) | payer MEDICARE, SELFPAY ==
[2023-06-12 20:15] LABS: Chloride 103 mmol/L (98-107)
[2023-06-12 20:16] LABS: Sodium 139 mmol/L (136-145)
[2023-06-12 20:18] LABS: Alanine Aminotransferase 23 U/L (12-78); Alkaline Phosphatase 60 U/L (38-126); Aspartate Amino Transferase 24 U/L (14-36); Bilirubin,Total 0.4 mg/dl (0.2-1.3); Blood Urea Nitrogen 25 mg/dl (7-17); Estimated Glomerular Filt Rate 62 ml/min (>60); GFR (African American) 76 ML/MIN (>60)
[2023-06-12 20:19] LABS: Albumin Level 4.4 g/dl (3.5-5.0); Albumin/Globulin Ratio 1.8 (1.1-1.8); Calcium 10.4 mg/dl (8.4-10.2); Carbon Dioxide 28 mmol/L (22.0-30.0); Chol/HDL Ratio 4.7 (1-3.5); Cholesterol 200 mg/dl (140-200); Globulin 2.5 g/dL (1.3-3.2); Glucose 82 mg/dl (74-100); HDL Cholesterol 43 mg/dl (40-60); Total Protein,Serum 6.9 g/dl (6.3-8.2); Triglycerides 207 mg/dl (30-150); VLDL Cholesterol 41 mg/dL (0-40)
[2023-06-12 20:36] LABS: Direct LDL Cholesterol 101.57 mg/dL (100-129)
== END 2023-06-12 23:59 ==
LOC: LAB.DROPOF 19:09
PROVIDERS: PCP Internal Medicine; Visit Provider Internal Medicine
DX: Z01.818 Encounter for other preprocedural examination (principal); I10 Essential (primary) hypertension; E78.5 Hyperlipidemia, unspecified; R73.01 Impaired fasting glucose
CPT/HCPCS: 80053; 80061

== ENCOUNTER 2023-06-21 16:42 | Outpatient (CLI) | payer MEDICARE, SELFPAY ==
[2023-06-21 18:46] LABS: Calcium 10.8 mg/dl (8.4-10.2); Phosphorous 4.5 mg/dl (2.5-4.5)
[2023-06-21 19:01] LABS: 25-OH Vitamin D, Total 38.3 ng/mL (30-100)
== END 2023-06-21 23:59 ==
LOC: LAB.DROPOF 16:43
PROVIDERS: PCP Internal Medicine; Visit Provider Internal Medicine
DX: E83.52 Hypercalcemia (principal)
CPT/HCPCS: 82306; 82310; 83970; 84100

== ENCOUNTER 2023-08-27 13:16 | Outpatient (CLI) | payer MEDICARE, SELFPAY ==
[2023-08-27 15:30] LABS: Calcium 11.2 mg/dl (8.4-10.2)
[2023-08-27 15:37] LABS: Intact Parathyroid Hormone 70.9 pg/mL (7.5-53.5)
== END 2023-08-27 23:59 | disposition home or self-care (01) ==
LOC: LAB.DROPOF 13:17
PROVIDERS: PCP Internal Medicine; Visit Provider Internal Medicine
DX: E83.52 Hypercalcemia (principal); I10 Essential (primary) hypertension; M17.0 Bilateral primary osteoarthritis of knee; F41.9 Anxiety disorder, unspecified; E78.5 Hyperlipidemia, unspecified; J30.9 Allergic rhinitis, unspecified; D50.9 Iron deficiency anemia, unspecified
CPT/HCPCS: 82310; 83970

== ENCOUNTER 2023-09-04 08:00 | Outpatient (RCR) | payer MEDICARE, SELFPAY | END 2023-09-04 08:05 | disposition home or self-care (01) | LOC: PT 08:00 | PROVIDERS: Visit Provider Orthopaedic Surgery | DX: M17.11 Unilateral primary osteoarthritis, right knee (principal) | CPT/HCPCS: 97010; 97014; 97016; 97110; 97112; 97140; 97163; 97164; 97530; G0283 ==

== ENCOUNTER 2023-10-23 12:46 | Outpatient (CLI) | payer MEDICARE, SELFPAY ==
--- NOTE | 2023-10-23 13:07 | US_ITS ---
FINAL REPORT TECHNIQUE: Limited sonographic images of the thyroid was obtained. CLINICAL HISTORY: hyperparathyroidism FINDINGS: The thyroid is normal in size and diffusely heterogeneous. There is a 6 mm cyst in the anterior right lobe. There is a 9 mm TR 3 nodule in the posterior right lobe. There is a mixed hyperechoic and hypoechoic nodule along the posterior left lobe measuring up to 14 mm. This is favored to represent an exophytic thyroid nodule as opposed to extrathyroid nodule such as a parathyroid adenoma. IMPRESSION: Mildly heterogeneous thyroid. Bilateral nodules as detailed above. Recommend 12 month follow-up. Reviewed, Interpreted and Dictated by Jose Maria Aldridge MD Transcribed by Edelmira Friedman Authenticated and [facility]
== END 2023-10-23 23:59 | disposition home or self-care (01) ==
LOC: RAD 12:47
PROVIDERS: PCP Nurse Practitioner; Visit Provider Nurse Practitioner
DX: E21.3 Hyperparathyroidism, unspecified (principal)
CPT/HCPCS: 76536

== ENCOUNTER 2023-10-28 11:27 | Outpatient (CLI) | payer MEDICARE, SELFPAY ==
[2023-10-28 12:35] LABS: Intact Parathyroid Hormone 99.8 pg/mL (7.5-53.5)
[2023-10-29 16:52] LABS: Calcium, Ionized 5.7 mg/dL (4.5-5.6)
== END 2023-10-28 23:59 | disposition home or self-care (01) ==
LOC: LAB 11:28
PROVIDERS: PCP Internal Medicine; Visit Provider Nurse Practitioner
DX: E21.3 Hyperparathyroidism, unspecified (principal)
CPT/HCPCS: 36415; 82330; 83970

== ENCOUNTER 2023-11-08 08:20 | Outpatient (CLI) | payer MEDICARE, SELFPAY ==
[2023-11-08] MEDS: SODIUM CHLORIDE 0.9% 10ML SYR (RAD ONLY) 10 ML IV (08:15)
--- NOTE | 2023-11-08 08:20 | NM_ITS ---
FINAL REPORT CLINICAL HISTORY: rule out parathyroid adenoma FINDINGS: mCi Technetium Sestamibi was administered. Planar imaging was performed early and two-hour delayed of the neck and upper thorax. Early imaging shows physiologic uptake within the upper neck involving the salivary glands and lower neck involving the thyroid gland. On delayed imaging there is no abnormal retained activity in the lower neck or mediastinum to localize parathyroid adenoma. IMPRESSION: No scintigraphic evidence of parathyroid adenoma. Authenticated and [facility]
[2023-11-08] MEDS: ISO TC99M (SESTAMIBI);1 DOSE VIAL IV (10:11)
== END 2023-11-08 23:59 | disposition home or self-care (01) ==
LOC: RAD 08:20
PROVIDERS: PCP Internal Medicine; Visit Provider Nurse Practitioner
DX: R79.89 Other specified abnormal findings of blood chemistry (principal); E21.3 Hyperparathyroidism, unspecified
CPT/HCPCS: 78071; A9500

== ENCOUNTER 2023-12-25 14:01 | Outpatient (CLI) | payer MEDICARE, SELFPAY ==
[2023-12-25 13:57] LABS: Basophils % 0.7 % (0.1-2.0); Eosinophils # 0.1 K/mm3 (0.0-0.4); Eosinophils % 1.9 % (0.1-12.0); Hematocrit 43.1 % (37.0-47.0); Hemoglobin 13.5 g/dL (12.2-16.2); Lymphocytes # 1.6 K/mm3 (0.7-4.5); Lymphocytes % 26.7 % (10-50); Mean Corpuscular HGB Conc 31.3 g/dL (31.8-35.4); Mean Corpuscular Hemoglobin 30.4 pg (27.0-31.2); Mean Corpuscular Volume 97.2 fl (81-99); Mean Platelet Volume 8.4 fl (7.4-10.4); Monocytes # 0.4 K/mm3 (0.1-1.0); Monocytes % 6.2 % (1.7-9.3); Neutrophils # 3.8 K/mm3 (1.8-7.8); Neutrophils % 64.5 % (37.0-80.0); Platelet Count 202 K/mm3 (142-424); Red Blood Count 4.43 M/mm3 (4.20-5.40); Red Cell Distribution Width 13.5 % (11.5-17.5)
[2023-12-25 14:37] LABS: Alanine Aminotransferase 23 U/L (12-78); Albumin Level 4.5 g/dl (3.5-5.0); Albumin/Globulin Ratio 1.8 (1.1-1.8); Alkaline Phosphatase 57 U/L (38-126); Anion Gap 8.2 mEq/L (5-15); Aspartate Amino Transferase 22 U/L (14-36); Bilirubin,Total 0.5 mg/dl (0.2-1.3); Blood Urea Nitrogen 27 mg/dl (7-17); Calcium 10.9 mg/dl (8.4-10.2); Carbon Dioxide 29 mmol/L (22.0-30.0); Chloride 105 mmol/L (98-107); Chol/HDL Ratio 3.7 (1-3.5); Cholesterol 198 mg/dl (140-200); Estimated Glomerular Filt Rate 55 ml/min (>60); GFR (African American) 67 ML/MIN (>60); Globulin 2.5 g/dL (1.3-3.2); Glucose 86 mg/dl (74-100); HDL Cholesterol 53 mg/dl (40-60); Potassium 4.2 mmoL/L (3.5-5.1); Sodium 138 mmol/L (136-145); Triglycerides 206 mg/dl (30-150); VLDL Cholesterol 41 mg/dL (0-40)
[2023-12-25 14:48] LABS: Direct LDL Cholesterol 104.55 mg/dL (100-129)
== END 2023-12-25 23:59 | disposition home or self-care (01) ==
LOC: LAB.DROPOF 14:02
PROVIDERS: PCP Internal Medicine; Visit Provider Internal Medicine
DX: E78.5 Hyperlipidemia, unspecified (principal); I10 Essential (primary) hypertension; E04.2 Nontoxic multinodular goiter; E21.3 Hyperparathyroidism, unspecified; M15.0 Primary generalized (osteo)arthritis; Z96.659 Presence of unspecified artificial knee joint; Z87.891 Personal history of nicotine dependence
CPT/HCPCS: 80053; 80061; 85025

== ENCOUNTER 2023-12-31 12:33 | Emergency (ER) | payer MEDICARE, SELFPAY ==
[2023-12-31 12:59] LABS: Microscopic, Urine URINE MICROSCOPIC (MICROSCOPIC)
[2023-12-31 13:00] VITALS: BP 144/69; PULSE 76; RESP 20; TEMP 36.6; O2SAT 98; BMI 29.1
--- NOTE | 2023-12-31 13:00 | EXP.UTC ---
Discharge Plan Disposition Patient Disposition: Home, Self-Care Condition: Good Prescriptions Prescriptions: New phenazopyridine 200 mg Tablet 200 mg PO TID 2 Days Qty: 6 0RF nitrofurantoin monohyd/m-cryst [Macrobid] 100 mg Capsule 100 mg PO BID Qty: 10 0RF Rx Instructions: must administer with a meal/food No Action tizanidine 4 mg tablet See Rx Instructions .ROUTE .COMPLEX Qty: 30 1RF Dose Instruction: TAKE ONE TABLET BY MOUTH EVERY 8 HOURS NEEDED FOR MUSCLE SPASMS MAY CAUSE DROWSINESS Rx Instructions: TAKE ONE TABLET BY MOUTH EVERY 8 HOURS NEEDED FOR MUSCLE SPASMS MAY CAUSE DROWSINESS losartan 50 mg tablet 50 mg PO DAILY Patient Comments: TAKE ONE TABLET BY MOUTH ONCE DAILY triamterene-hydrochlorothiazid 37.5-25 mg capsule 1 cap PO DAILY Patient Comments: TAKE ONE CAPSULE BY MOUTH EVERY DAY pravastatin 80 mg tablet 80 mg PO HS Patient Comments: TAKE ONE TABLET BY MOUTH EVERY DAY AT BEDTIME trazodone 100 mg tablet 100 mg PO HS Patient Comments: TAKE ONE TABLET BY MOUTH EVERY DAY AT BEDTIME NEEDED pantoprazole 40 mg tablet,delayed release (DR/EC) 40 mg PO HS Patient Comments: TAKE ONE TABLET BY MOUTH EVERY DAY AT BEDTIME diltiazem HCl 120 mg capsule,extended release 24hr 120 mg PO DAILY Patient Comments: TAKE ONE CAPSULE BY MOUTH EVERY DAY montelukast 10 mg tablet 10 mg PO DAILY Patient Comments: TAKE ONE TABLET BY MOUTH EVERY DAY losartan 100 mg tablet 100 mg PO DAILY Patient Comments: TAKE ONE TABLET BY MOUTH EVERY DAY levocetirizine 5 mg tablet 5 mg PO DAILY Patient Comments: TAKE ONE TABLET BY MOUTH EVERY DAY Referrals Follow up/Referrals: Selwyn Zaidi MD [Primary Care Provider] - See instructions Activity Restrictions/Add. Instructions Additional Instructions/Restrictions: Drink plenty of fluids. Take tylenol or ibuprofen for pain or fever. Take the medications as directed. Follow up with your regular doctor. GO TO THE ER FOR ANY WORSENING SYMPTOMS The pyridium will make your urine turn orange, this is an expected side effect. It will stain your clothes if it comes into contact with them. We will culture the urine. That will tell what bacteria is causing your infection and which antibiotics will treat it best.This test takes 3 days to complete. Clinical Impressions Clinical Impression: Urinary tract infection Instructions Patient Instructions: Urinary Tract Infection, Urine Culture, DI for Urinary Tract Infection (UTI), Phenazopyridine Print Language Print Language: Upper Sorbian Discharge ED Provider: Paulo Winn [facility] [place] [facility] HPI General Stated complaint: possible UTI Time Seen by Provider: 12/31/23 13:00 Related Data Home Medications ?Medication ?Instructions ?Recorded ?Confirmed diltiazem HCl 120 mg 120 mg PO DAILY 12/31/23 12/31/23 capsule,extended release 24 hr levocetirizine 5 mg tablet 5 mg PO DAILY 12/31/23 12/31/23 losartan 100 mg tablet 100 mg PO DAILY 12/31/23 12/31/23 losartan 50 mg tablet 50 mg PO DAILY 12/31/23 12/31/23 montelukast 10 mg tablet 10 mg PO DAILY 12/31/23 12/31/23 pantoprazole 40 mg tablet,delayed 40 mg PO HS 12/31/23 12/31/23 release pravastatin 80 mg tablet 80 mg PO HS 12/31/23 12/31/23 trazodone 100 mg tablet 100 mg PO HS 12/31/23 12/31/23 triamterene 37.5 1 cap PO DAILY 12/31/23 12/31/23 mg-hydrochlorothiazide 25 mg capsule Previous Rx's ?Medication ?Instructions ?Recorded nitrofurantoin 100 mg PO BID #10 caps 12/31/23 monohydrate/macrocrystals 100 mg capsule (Macrobid) phenazopyridine 200 mg tablet 200 mg PO TID 2 days #6 tabs 12/31/23 tizanidine 4 mg tablet See Rx Instructions .Route 12/31/23 .COMPLEX #30 tabs Allergies Allergy/AdvReac Type Severity Reaction Status Date / Time Iodinated Contrast Media Allergy Verified 12/25/23 09:04 [facility] Disclaimer: The information contained in this section may have been updated after the patient was seen, as this information can be updated by other users. Medical History (Updated 12/31/23 @ 13:47 by Paulo Winn APRN) Multiple thyroid nodules Thyroid nodule Urinary tract infection Hypertension Gallbladder disease Surgical History (Updated 12/25/23 @ 09:13 by Selwyn Zaidi MD) History of hysterectomy Social History Smoking Status: Former smoker alcohol intake: never current occupational status: employed Travel in the last 8 weeks: None ROS Obtained: Yes All systems reviewed & no additional complaints except as documented Constitutional Constitutional: Reports system reviewed and no additional complaints, except as documented, Denies chills and Denies fever(s) Eyes Eyes: Denies eye discharge ENT Ears, Nose, Mouth, and Throat: Denies dysphagia, Denies sore throat and Denies throat swelling Cardiovascular Cardiovascular: Denies chest pain and Denies dyspnea Respiratory Respiratory: Denies chest congestion, Denies cough and Denies dyspnea Gastrointestinal Gastrointestingal: Denies abdominal pain, constipation, diarrhea, dysphagia, nausea or vomiting Genitourinary Female Genitourinary: Reports as per HPI, Reports dysuria, Reports urinary frequency, Denies urinary incontinence, Reports urinary hesitancy and Reports urinary urgency Musculoskeletal Musculoskeletal: Denies arthralgias and Reports back pain Integumentary/Breasts Skin/Breast: Denies rash Neurologic Neurologic: Denies paresthesias Allergic/Immunologic Allergic/Immunologic: Denies throat swelling Physical Exam General General appearance: alert and in no apparent distress Head Head exam: atraumatic and normocephalic Eye Eye exam: Present normal appearance, PERRL and EOMI ENT ENT exam: Present normal exam, mucous membranes moist, TM's normal bilaterally and normal external ear exam Neck Neck exam: Present normal inspection, full ROM and trachea midline; Absent tenderness, meningismus or lymphadenopathy Chest Chest inspection: Present normal inspection and symmetric chest wall rise; Absent tenderness Respiratory Respiratory exam: Present normal lung sounds bilaterally; Absent respiratory distress, wheezes or stridor Cardiovascular Cardiovascular exam: Present regular rate, normal rhythm and normal heart sounds Abdominal Exam Abdominal exam: Present soft and normal bowel sounds; Absent distention, tenderness, guarding, rebound, rigidity, incision, psoas sign, obturator sign, heel tap sign, Mcdonnell's sign, Rovsing's sign or tenderness at McBurney's Point Extremities Exam Extremities exam: Present normal inspection, full ROM and normal capillary refill; Absent tenderness, edema, joint swelling, calf tenderness or cyanosis Back Exam Back exam: Present normal inspection and full ROM; Absent tenderness, CVA tenderness (R) or CVA tenderness (L) Neurological Exam Neurological exam: Present alert, oriented X3 and normal gait Psychiatric Psychiatric exam: Present normal affect and normal mood Skin Skin exam: Present warm, dry, intact and normal color Lymphatic Lymphatic Findings: no adenopathy Medical Decision Making Medical Records Medical records reviewed: No I reviewed the patient's medical records. Screening: Per USPSTF and CDC recommendations, given the prevalence of disease in our region, it is our hospital?s policy to screen for HIV and viral Hepatitis for all patients aged 18 and over and those with ongoing risk factors. Ibrahima Inquiry Pt receiving controlled substance: No Lab Data Lab results reviewed: Yes I reviewed the patient's lab results. Orders (Tests/Meds): ORDERS Category Date Time Status UA [Urinalysis and Microscopic] Stat Lab 12/31/23 12:40 Received
[2023-12-31 13:39] LABS: Appearance,Urine CLEAR (Clear); Bilirubin,Urine Negative (Negative); Blood, Urine 2+ (Negative); Glucose,Urine (UA) Negative (Negative); Ketones,Urine Negative (Negative); Leukocyte Esterase,Urine 2+ (Negative); Nitrate,Urine POSITIVE (Negative); Protein,Urine Negative (Negative); Specific Gravity, Urine >= 1.030 (1.005-1.030); Urobilinogen,Urine 0.2 EU/dl (0.2)
[2023-12-31 13:47] LABS: Amorphous Sediment,Urine 2+ /lpf; Bacteria,Urine Trace /lpf; RBC,Urine Occasional #/hpf (0-3); Squamous Epithelial Cell,Urine Occasional #/hpf (0-5); WBC,Urine Occasional #/hpf (0-3)
[2023-12-31 13:49] LABS: Color,Urine YELLOW (Yellow)
[2023-12-31 13:51] VITALS: BP 144/69; PULSE 76; RESP 20; TEMP 36.6; O2SAT 98
--- NOTE | 2024-01-10 18:01 | PC.NURSE ---
URINE CULTURE REVIEWED BY Agustina JOHNSON APRN. ANTIBIOTIC WAS CHANGED PER PATIENT'S PCP.
== END 2023-12-31 13:54 | disposition home or self-care (01) ==
PROVIDERS: Emergency Provider Nurse Practitioner Family; PCP Internal Medicine
DX: N39.0 Urinary tract infection, site not specified (principal)
CPT/HCPCS: 81001; 87086; 87088; 87186; 99213; G0381; G0463

== ENCOUNTER 2024-03-05 16:00 | Outpatient (CLI) | payer MEDICARE, SELFPAY | END 2024-03-05 23:59 | disposition home or self-care (01) | LOC: LAB.DROPOF 03-06 09:00 | PROVIDERS: PCP Internal Medicine; Visit Provider Internal Medicine | DX: B34.9 Viral infection, unspecified (principal); U07.1 COVID-19 | CPT/HCPCS: 87635 ==

== ENCOUNTER 2024-06-24 09:55 | Outpatient (CLI) | payer MEDICARE, SELFPAY ==
[2024-06-24 13:36] LABS: Alanine Aminotransferase 27 U/L (12-78); Albumin/Globulin Ratio 2.3 (1.1-1.8); Alkaline Phosphatase 56 U/L (38-126); Anion Gap 17.7 mEq/L (5-15); Aspartate Amino Transferase 22 U/L (14-36); Bilirubin,Total 0.6 mg/dl (0.2-1.3); Blood Urea Nitrogen 34 mg/dl (7-17); Calcium 11.2 mg/dl (8.4-10.2); Carbon Dioxide 24 mmol/L (22.0-30.0); Chloride 104 mmol/L (98-107); Chol/HDL Ratio 3.7 (1-3.5); Cholesterol 199 mg/dl (140-200); Estimated Glomerular Filt Rate 62 ml/min (>60); GFR (African American) 75 ML/MIN (>60); Globulin 2.2 g/dL (1.3-3.2); Glucose 90 mg/dl (74-100); HDL Cholesterol 54 mg/dl (40-60); Potassium 4.7 mmoL/L (3.5-5.1); Sodium 141 mmol/L (136-145); Total Protein,Serum 7.2 g/dl (6.3-8.2); Triglycerides 192 mg/dl (30-150); VLDL Cholesterol 38 mg/dL (0-40)
[2024-06-24 13:44] LABS: Intact Parathyroid Hormone 79.8 pg/mL (7.5-53.5)
[2024-06-24 13:47] LABS: Direct LDL Cholesterol 99.68 mg/dL (100-129)
== END 2024-06-24 23:59 | disposition home or self-care (01) ==
LOC: LAB.DROPOF 14:06
PROVIDERS: PCP Internal Medicine; Visit Provider Internal Medicine
DX: E21.3 Hyperparathyroidism, unspecified (principal); E78.5 Hyperlipidemia, unspecified; I10 Essential (primary) hypertension; M15.0 Primary generalized (osteo)arthritis; Z87.891 Personal history of nicotine dependence
CPT/HCPCS: 80053; 80061; 83970

== ENCOUNTER 2024-08-12 06:05 | Day surgery (SDC) | payer MEDICARE, SELFPAY ==
[2024-08-10 17:02] VITALS: BMI 28.9
[2024-08-12] MEDS: LACTATED RINGERS 1000ML 1,000 ML 25 ML IV (06:52)
[2024-08-12 06:54] VITALS: BP 136/59; PULSE 84; RESP 18; TEMP 36.1; O2SAT 93
--- NOTE | 2024-08-12 07:19 | P.PNANES_ITS ---
[facility] Disclaimer: The information contained in this section may have been updated after the patient was seen, as this information can be updated by other users. Medical History Cholecystectomy planned Tonsillectomy planned Multiple thyroid nodules Thyroid nodule Urinary tract infection Hypertension Gallbladder disease Surgical History History of breast biopsy History of right knee joint replacement History of hysterectomy Family History Other No significant family history Social History Smoking Status: Never smoker alcohol intake: never substance use type: denies use current occupational status: employed Travel in the last 8 weeks?: Inside the [facility] Anesthesia Checklist Patient Identification Patient Identification: Verbal (Name & ) Structural Data Admitted From: Home Planned Operative Procedure/s: colonoscopy Consent for Planned Operative Procedure(s) Verified: Yes Airway Assessment Mallampati Score:: Class II C-Spine Mobility Assessed: Yes TMJ Mobility Assessed: Yes Dentition: Good Dentition Neurological Assessment Level of Consciousness: Awake, Alert and Appropriate Anesthesia Plan Anesthesia Risk discussed: Yes Anesthesia Plan: Verified ASA Class: II Anesthesia Type: MAC
--- NOTE | 2024-08-12 07:23 | EXP.HP ---
History of Present Illness *Admission Date: 08/12/24 *Reason for visit:: Positive Cologuard *History of present illness: Mrs. Kelly is a 69-year-old female who is here for screening colonoscopy secondary to a positive Cologuard. The examination is deemed medically necessary for screening colonoscopy. The patient has been seen, interviewed and examined prior to the procedure by both myself and the anesthesia provider. [facility] Disclaimer: The information contained in this section may have been updated after the patient was seen, as this information can be updated by other users. Medical History Cholecystectomy planned Tonsillectomy planned Multiple thyroid nodules Thyroid nodule Urinary tract infection Hypertension Gallbladder disease Surgical History History of breast biopsy History of right knee joint replacement History of hysterectomy Family History Other No significant family history Social History (Updated 08/12/24 @ 07:20 by Kushal Nino CRNA) Smoking Status: Never smoker alcohol intake: never substance use type: denies use current occupational status: employed Travel in the last 8 weeks?: Inside the [place] Have you lived/traveled outside US in past 30 days?: No Contact w/someone who lives/traveled outside US past 30 days?: No Exposure to someone with infectious disease in past 14 days?: No Do you have a fever (greater than 100.4 F or 38 C)?: No Have you tested positive for COVID-19?: No Exposed to someone with COVID-19 in past 14 days?: No Do you have a sore throat?: No Do you have a cough?: No Do you have any weakness?: No Do you have any diarrhea?: No Are you experiencing any unusual bleeding?: No Do you have any muscle aches/pain?: No Do you have any abdominal pain?: No Are you experiencing loss of taste or smell?: No Other Medical History Have you received the Flu Vaccine for this season: Yes Have you received the Pneumonia Vaccine: Yes Review of Systems Review of Systems Review of systems (narrative): Negative *Cardiovascular Comments: Negative *Gastrointestinal Comments: Negative *Genitourinary Comments: Negative *Musculoskeletal Comments: Negative *Neurologic Comments: Negative Meds Home Medications and Allergies Home Medications ?Medication ?Instructions ?Recorded ?Confirmed ?Type bupropion HCl 150 mg tablet,12 hr 150 mg PO DAILY #90 ea 12/31/23 08/10/24 Rx sustained-release levocetirizine 5 mg tablet 5 mg PO DAILY 12/31/23 08/10/24 History montelukast 10 mg tablet 10 mg PO DAILY 12/31/23 08/10/24 History pravastatin 80 mg tablet 80 mg PO HS #90 tabs 05/18/24 08/10/24 Rx losartan 100 mg tablet 100 mg PO DAILY #30 tabs 07/10/24 08/10/24 Rx diltiazem HCl 120 mg 120 mg PO DAILY 08/10/24 08/10/24 History capsule,extended release 24 hr lorazepam 0.5 mg tablet 0.5 mg PO TID PRN anxiety #90 tabs 08/10/24 08/10/24 Rx pantoprazole 40 mg tablet,delayed 40 mg PO DAILY 08/10/24 History release trazodone 100 mg tablet 100 mg PO DAILY 08/10/24 08/10/24 History New Prescriptions to Start Prescriptions: Allergies Allergy/AdvReac Type Severity Reaction Status Date / Time bacitracin (From Neosporin Allergy Rash Verified 08/12/24 06:53 ([id number])) Iodinated Contrast Media Allergy Hives Verified 08/12/24 06:53 latex Allergy Rash Verified 08/12/24 06:53 neomycin (From Neosporin Allergy Rash Verified 08/12/24 06:53 ([id number])) polymyxin B (From Neosporin Allergy Rash Verified 08/12/24 06:53 ([id number])) Exam Data for Last 24 hours Vital signs and Labs for Last 24 Hours: Temp Pulse Resp BP Pulse Ox O2 Del Method 97.0 F L 84 18 136/59 L 93 L Room Air 08/12/24 06:54 08/12/24 06:54 08/12/24 06:54 08/12/24 06:54 08/12/24 06:54 08/12/24 06:54 I & O for Last 24 hours: Intake & Output 08/09/24 08/10/24 08/11/24 08/12/24 23:59 23:59 23:59 23:59 Weight 158 lb *Routine HEENT Exam Head: Present normocephalic Eye: Present EOMI and PERRL ENT: Present mucous membranes moist *Routine Neck Exam Neck: Present supple *Routine Respiratory Exam Respiratory: Present CTA bilaterally *Routine Cardiovascular Exam Cardiovascular: Present RRR *Routine Abdominal Exam Abdominal: Present soft and normoactive bowel sounds; Absent tenderness *Routine Rectal Exam Rectal:: deferred *Routine Genitalia Exam Genitalia:: deferred *Routine Extremities Exam Extremities: Absent cyanosis, clubbing or edema *Routine Skin Exam Skin: Present warm; Absent rash *Routine Neurological Exam Neurological: Present alert and oriented X3 Assessment and Plan *Assessment and plan (1) Positive colorectal cancer screening using Cologuard test: Status: Acute Category: Medical Code(s): R19.5 - Other fecal abnormalities Plan A/P: 1. Positive Cologuard is the preprocedural diagnosis. The patient will be anesthetized/sedated using MAC sedation. The patient has been seen and examined. Cardiac and lung assessment prior to the examination is stable. Proceed with planned screening colonoscopy.
[2024-08-12 07:25] VITALS: O2SAT 99
--- NOTE | 2024-08-12 07:26 | P.PCN_ITS ---
[facility] Procedure Note Date: 08/12/24 Time: 07:58 Procedure Note:: Colonoscopy Procedure Report: Colonoscopy with EMR (endoscopic mucosal resection (submucosal injection, snare cautery, ablation and Endo Clip placement)) and cold snare polypectomy Endoscopist: Renzo Hargrove II, MD Referring physician: Selwyn Zaidi MD Date of Procedure: August 12, 2024 Equipment: Olympus 190 variable stiffness pediatric colonoscope Sedation: MAC sedation Indication: Mrs. Kelly is a 69-year-old female who is here for screening colonoscopy secondary to a positive Cologuard. The patient reports that this is her first colonoscopy. She reports no abdominal pain, weight loss, change in her bowel habits or rectal bleeding. She reports no family history of colon cancer. Procedure: Prior to the procedure, a history and physical exam was performed, and patient's medications and allergies were reviewed. The risks, benefits and alternatives of the sedation and procedure were discussed with the patient. All questions were answered and informed consent was obtained. The patient was brought to the procedure room. Patient identification and proposed procedure were verified by the physician and the nurse. The patient was placed in a left lateral decubitus position and the scope was passed under direct vision. Throughout the procedure, the patient's blood pressure, pulse, and oxygen saturations were monitored continuously. The colonoscopy was accomplished without difficulty. The patient tolerated the procedure well. Findings: On digital rectal examination there was normal rectal tone. There were no external hemorrhoids. The colonoscope was introduced through the anal canal to the rectum and advanced to the cecum. The ileocecal valve and appendiceal orifice were identified. The scope was advanced a short distance into the ileum which appeared grossly normal. The scope was then withdrawn into the colon. At the junction of the cecum/ascending colon was laterally spreading granular sessile adenoma that was 25 mm in diameter and this was initially raised using submucosal injection of Eleview. Approximately 10 mL of Eleview and 20 mL of saline were utilized to raise the polyp. Next, the polyp was removed in piecemeal resection using snare cautery with complete resection of the polyp. There was some heme within the base of the polypectomy with a small vessel. This was coagulated with excellent hemostasis. There appeared to be some adenomatous tissue that was removed via soft coagulation. After complete resection, the polypectomy site was closed with 3 endoclips. There were 3 additional diminutive polyps (descending x 2 (4 and 5 mm) and sigmoid x 1 (5 mm)). These were removed via cold snare polypectomy. The remaining cecum, ascending and transverse colon and mucosa were grossly normal. There were scattered diverticuli throughout the descending and sigmoid colon (LEFT colon). The rectum itself was normal. Upon retroflexion within the rectum there were grade 2 internal hemorrhoids. The preparation was excellent throughout with [place] Preparation Score of 9. The cecal time was 20 minutes. Impression: 1. 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 3 additional diminutive polyps 3. Left-sided diverticulosis 4. Grade 2 internal hemorrhoids Plan: I will follow-up the polyp histology. The cecal polyp is an advanced adenoma removed via EMR. We will need to repeat surveillance in 6 to 12 months to ensure there is no residual since these can grow back rapidly. I would encourage psyllium bulking fiber supplementation on a long-term daily maintenance basis.
[2024-08-12 08:05] VITALS: BP 110/71; PULSE 75; RESP 16; TEMP 36.4; O2SAT 98
[2024-08-12 08:15] VITALS: BP 125/67; PULSE 73; RESP 16; O2SAT 97
[2024-08-12 08:35] VITALS: BP 112/65; PULSE 72; RESP 16; O2SAT 96
--- NOTE | 2024-08-12 09:32 | EXP.ANES.CKL ---
[facility] Disclaimer: The information contained in this section may have been updated after the patient was seen, as this information can be updated by other users. Medical History Cholecystectomy planned Tonsillectomy planned Multiple thyroid nodules Thyroid nodule Urinary tract infection Hypertension Gallbladder disease Surgical History History of breast biopsy History of right knee joint replacement History of hysterectomy Family History Other No significant family history Social History (Updated 08/12/24 @ 07:20 by Kushal Nino CRNA) Smoking Status: Never smoker alcohol intake: never substance use type: denies use current occupational status: employed Travel in the last 8 weeks?: Inside the [place] Have you lived/traveled outside [place] in past 30 days?: No Contact w/someone who lives/traveled outside [place] past 30 days?: No Exposure to someone with infectious disease in past 14 days?: No Do you have a fever (greater than 100.4 F or 38 C)?: No Have you tested positive for COVID-19?: No Exposed to someone with COVID-19 in past 14 days?: No Do you have a sore throat?: No Do you have a cough?: No Do you have any weakness?: No Do you have any diarrhea?: No Are you experiencing any unusual bleeding?: No Do you have any muscle aches/pain?: No Do you have any abdominal pain?: No Are you experiencing loss of taste or smell?: No [facility] Anesthesia Checklist Patient Identification Patient Identification: Verbal (Name & ) Structural Data Admitted From: Home Planned Operative Procedure/s: col Anesthesia Plan Anesthesia Type: MAC
--- NOTE | 2024-08-15 09:38 | P.PNANES_ITS ---
[facility] Disclaimer: The information contained in this section may have been updated after the patient was seen, as this information can be updated by other users. Medical History Cholecystectomy planned Tonsillectomy planned Multiple thyroid nodules Thyroid nodule Urinary tract infection Hypertension Gallbladder disease Surgical History History of breast biopsy History of right knee joint replacement History of hysterectomy Family History Other No significant family history Social History (Updated 08/12/24 @ 07:20 by Kushal Nino CRNA) Smoking Status: Never smoker alcohol intake: never substance use type: denies use current occupational status: employed Travel in the last 8 weeks?: Inside the [place] Have you lived/traveled outside [place] in past 30 days?: No Contact w/someone who lives/traveled outside [place] past 30 days?: No Exposure to someone with infectious disease in past 14 days?: No Do you have a fever (greater than 100.4 F or 38 C)?: No Have you tested positive for COVID-19?: No Exposed to someone with COVID-19 in past 14 days?: No Do you have a sore throat?: No Do you have a cough?: No Do you have any weakness?: No Do you have any diarrhea?: No Are you experiencing any unusual bleeding?: No Do you have any muscle aches/pain?: No Do you have any abdominal pain?: No Are you experiencing loss of taste or smell?: No [facility] Anesthesia Checklist Patient Identification Patient Identification: Verbal (Name & ) Structural Data Admitted From: Home Planned Operative Procedure/s: colonoscopy Consent for Planned Operative Procedure(s) Verified: Yes Airway Assessment Mallampati Score:: Class II C-Spine Mobility Assessed: Yes TMJ Mobility Assessed: Yes Dentition: Good Dentition Neurological Assessment Level of Consciousness: Awake, Alert and Appropriate Anesthesia Plan Anesthesia Risk discussed: Yes Anesthesia Plan: Verified ASA Class: II Anesthesia Type: MAC
== END 2024-08-12 08:36 | disposition home or self-care (01) ==
PROVIDERS: PCP Internal Medicine; Visit Provider Internal Medicine Gastroenterology
PROC: 0DJD8ZZ Inspection of Lower Intestinal Tract, Via Natural or Artificial Opening Endoscopic (ICD-10-PCS; CPT 45378; principal; 2024-08-12 07:30)
DX: Z12.11 Encounter for screening for malignant neoplasm of colon (principal); R19.5 Other fecal abnormalities; D12.0 Benign neoplasm of cecum; D12.4 Benign neoplasm of descending colon; D12.5 Benign neoplasm of sigmoid colon; K57.30 Diverticulosis of large intestine without perforation or abscess without bleeding; K64.1 Second degree hemorrhoids
CPT/HCPCS: 45385; 45390; 88305; J7120

== ENCOUNTER 2024-12-28 09:55 | Outpatient (CLI) | payer MEDICARE, SELFPAY ==
--- OUTSIDE RECORDS SUMMARY | 2024-11-17 07:48 | XMS_ITS | Encounter Summary ---
[facility] Address [address] [place] [address] Care Team Providers Care Senior Engineering Manager Name Role Phone Selwyn Zaidi MD Primary Care Provider [phone] Reason for Visit * Auth/Cert Specialty Diagnoses / Procedures Referred By Libby cleaning Referred To Contact Procedures PARATHYROIDECTOMY Referral ID Status Reason Start Date Expiration Date Visits Re quested Visits Authorized [id number] 1 1 Encounter Details Date Type Department Care Team (Late st Contact Info) Description 11/17/2024 7:48 AM EDT - 11/17/2024 2:42 PM EDT Hospital Encounter [facility] [address] [place] [address] Hussein Esparza MD [address] [facility] [address] [place] [phone] Primary hyperparathyroidism (Primary Dx); Hyperparathyroidism Discharge Disposition: Home or Self Care Social History Tobacco Use Types Packs/Day Years Used Date Smoking Tobacco: Former Cigarettes Passive Smoke Exposure: Yes Smokeless Tobacco: Never Alcohol Use Standard Drinks/Week Comments Yes 0 (1 standard drink = 0.6 oz pur e alcohol) weekend, 2 - 3 drinks/month OASIS D0700: Social Isolation Answer Da te Recorded Frequency of experiencing loneliness or isolatio n Sometimes 07/10/2023 OASIS A1250: Transportation Answer Date Recorded Lack of Transportation (Medical) No 07/10/2023 Lack of Transportation (Non-Medical) No 07/10/2023 Patient Unable or Declines to Respond No 07/10/2023 OASIS B1300: Health Literacy Answer Abad e Recorded Frequency of needing help to read materials from doctor or pharmacy Never 07/10/2023 AUDIT-C Answer Date Recorded Frequency of Alcohol Consumption Never 08/07/2018 Average Number of Drinks Not on file 019 Frequency of Binge Drinking Not on file 11/2018 Abuse Screen Answer Date Recorded Feels Unsafe at Home or Work/School no 11/17/2024 Feels Threatened by Someone no 10/30 Does Anyone Try to Keep You From Having Contact with Others or Doing Things Outside Your Home? no 11/17/2024 Physical Signs of Abuse Present no 11/17/2024 Housing Stability Answer Date Recorded Current Living Arrangements home 10/30 Potentially Unsafe Housing Conditions Not on candice e 11/17/2024 Disabilities Answer Date Recorded Difficulty Concentrating, Remembering or Making Decisions no 11/17/2024 Difficulty Managing Errands Independently no 11/17/2024 Education Answer Date Recorded Help with school or training? Not on file Preferred Language Polish 10/29/2024 Comments No Sex and Gender Information Value Date Recorded Sex Assigned at Female 10/27/2024 4:32 PM EDT Legal Sex Female 12:19 PM EDT Gender Identity Not on file Sexual Orientation Not on file documented as of this encounter Last Filed Vital Signs Vital Sign Reading Time Taken Comments Blood Pressure 149/67 11/17/2024 2:15 PM EDT Pulse 87 11/17/2024 2:17 PM EDT Temperature 36.4 C (97.5 F) 11/17/2024 2:15 PM EDT Respiratory Rate 16 11/17/2024 2:15 PM EDT Oxygen Saturation 95% 11/17/2024 2:17 PM EDT Inhaled Oxygen Concentration - - Weight 73.7 kg (162 lb 7.7 oz) 11/17/2024 8:12 A M EDT Height 157.5 cm (5' 2 ) 11/17/2024 8:12 AM EDT Body Mass Index 29.72 11/17/2024 8:12 AM EDT documented in this encounter Functional Status * Question Answer Date of Assessment Author 1. Wish to be (Past 1 Month) No 025 8:15 AM EDT Colleen Guerra, RN 2. Non-Specific Active Suici jeffrey Thoughts (Past 1 Month) No 11/17/2024 8:15 AM EDT Colleen Guerra, RN * Calculated C-SSRS Risk Score (Lifetime/Recent) Answer Date of Assessment Author No Risk Indicated 11/17/2024 8:15 AM EDT Brijesh Guerra RN * [place] Suicide Severity Rating Scale (Screener/Recent Self-Report) Question Answer Date of Assessment Author 6. Suicidal Behavior (Lifetime) No 5 8:15 AM EDT Colleen Guerra RN documented as of this encounter Discharge Instructions * Discharge Instructions* Audra Mcelroy RN - 11/17/2024 12:53 PM EDT 1) No driving until no longer taking narcotics. 2) Return to school / work in 1 week. 3) May shower starting 11/18/2024. No tub baths. No swimming. 4) Take 1000 mg of Tums twice daily, with breakfast and dinner. 5) If develop numbness/tingling in fingers/toes/lips, take two additional TUMS. If symptoms do not improve in one hour, take two more and call Dr. Esparza's office. Go to the nearest Emergency Department if: Fever >100.4, increased pain, rapid neck swelling, new redness/drainage from incision, numbness/tingling in fingers/toes/lips not controlled by extra TUMS * Attachments The following attachments cannot be sent through Care Everywhere. * Parathyroidectomy Care After (Polish) * General Anesthesia Adult Care After (Polish) documented in this encounter Medications at Time of Discharge Acetaminophen (TYLENOL ARTHRITIS PAIN PO) Take 2 tablets by mouth Daily. 9 albuterol sulfate HFA 108 (90 Base) MCG/ACT inhaler Inhale 1 puff As Needed. 1 azelastine (ASTELIN) 0.1 % nasal spray Administer 2 sprays into the nostril(s) as directed by provider 2 (Two) Times a Day. Use in each nostril as directed 9 buPROPion SR (WELLBUTRIN SR) 150 MG 12 hr tablet Take 1 tablet by mouth Daily. 4 Cranberry-Vitamin C-Probiotic (AZO CRANBERRY PO) Take 25,000 mg by mouth Daily. 2 tabs daily 4 dilTIAZem CD (CARDIZEM CD) 120 MG 24 hr capsule Take 1 capsule by mouth Daily. 1 Eye Itch Relief 0.035 % solution INSTILL ONE DROP IN EACH EYE TWICE DAILY NEEDED DIRECTED 4 fluticasone (FLONASE) 50 MCG/ACT nasal spray Administer 2 sprays into the nostril(s) as directed by provider Daily. 9 levocetirizine (XYZAL) 5 MG tablet Take 1 tablet by mouth Every Evening. 9 LORazepam (ATIVAN) 0.5 MG tablet Take 1 tablet by mouth As Needed for Anxiety. 9 losartan (COZAAR) 50 MG tablet Take 2 tablets by mouth Daily. 4 montelukast (SINGULAIR) 10 MG tablet Take 1 tablet by mouth Every Night. 4 pantoprazole (PROTONIX) 40 MG EC tablet Take 1 tablet by mouth Daily. 4 polyethylene glycol (MIRALAX) 17 GM/SCOOP powder Take 17 g by mouth Daily. 4 pravastatin (PRAVACHOL) 80 MG tablet Take 1 tablet by mouth Daily. 4 traZODone (DESYREL) 100 MG tablet Take 1 tablet by mouth Every Night. 4 Wheat Dextrin (BENEFIBER DRINK MIX PO) Take by mouth. ALLERGY SERUM INJECTION Inject under the skin into the appropriate area as directed 1 (One) Time. PRN ofloxacin (OCUFLOX) 0.3 % ophthalmic solution Administer 1 drop to both eyes As Needed. 1 oxyCODONE-acetaminophen (PERCOCET) 5-325 MG per tabletIndications:Prima ry hyperparathyroidism Take 1 tablet by mouth Every 6 (Six) Hours As Needed (Pain). 10 tablet 11/17/2024 1:36 PM EDT 5 documented as of this encounter H&P Notes * Arelis Hassan, POOL TABLE OPERATOR - 11/17/2024 8:21 AM EDT Pre-Op H&P Lilibeth Kelly [id number] Chief complaint: Hyperparathyroidism Subjective: Patient is a 69 y.o.female presents for scheduled surgery by Dr. Esparza. She anticipates a PARATHYROIDECTOMY today. She has a history of elevated serum calcium and PTH levels. She denies history of kidney stones. She has remote history of bone fracture. Review of Systems: Constitutional-- No fever, chills or sweats. No fatigue. CV-- No chest pain, palpitation or syncope. +HTN, HLD Resp-- No SOB, cough, hemoptysis Skin--No rashes or lesions Allergies: Allergies Allergen Reactions Augmentin [Amoxicillin-Pot Clavulanate] Rash Latex Rash Neosporin [Bacitracin-Polymyxin B] Rash Home Meds: Medications Prior to Admission Medication Sig Dispense Refill Last Dose/Taking Acetaminophen (TYLENOL ARTHRITIS PAIN PO) Take 2 tablets by mouth Daily. albuterol sulfate HFA 108 (90 Base) MCG/ACT inhaler Inhale 1 puff As Needed. ALLERGY SERUM INJECTION Inject under the skin into the appropriate area as directed 1 (One) Time. PRN azelastine (ASTELIN) 0.1 % nasal spray Administer 2 sprays into the nostril(s) as directed by provider 2 (Two) Times a Day. Use in each nostril as directed Biotin 5000 MCG capsule Take 1 capsule by mouth Daily. buPROPion SR (WELLBUTRIN SR) 150 MG 12 hr tablet Take 1 tablet by mouth Daily. Cranberry-Vitamin C-Probiotic (AZO CRANBERRY PO) Take 25,000 mg by mouth Daily. 2 tabs daily dilTIAZem CD (CARDIZEM CD) 120 MG 24 hr capsule Take 1 capsule by mouth Daily. Eye Itch Relief 0.035 % solution INSTILL ONE DROP IN EACH EYE TWICE DAILY NEEDED DIRECTED fluticasone (FLONASE) 50 MCG/ACT nasal spray Administer 2 sprays into the nostril(s) as directed byprovider Daily. levocetirizine (XYZAL) 5 MG tablet Take 1 tablet by mouth Every Evening. LORazepam (ATIVAN) 0.5 MG tablet Take 1 tablet by mouth As Needed for Anxiety. losartan (COZAAR) 50 MG tablet Take 2 tablets by mouth Daily. montelukast (SINGULAIR) 10 MG tablet Take 1 tablet by mouth Every Night. ofloxacin (OCUFLOX) 0.3 % ophthalmic solution Administer 1 drop to both eyes As Needed. [place]-3 Fatty Acids (FISH OIL) 1200 MG capsule delayed-release Take 1 capsule by mouth Daily. pantoprazole (PROTONIX) 40 MG EC tablet Take 1 tablet by mouth Daily. polyethylene glycol (MIRALAX) 17 GM/SCOOP powder Take 17 g by mouth Daily. pravastatin (PRAVACHOL) 80 MG tablet Take 1 tablet by mouth Daily. traZODone (DESYREL) 100 MG tablet Take 1 tablet by mouth Every Night. Wheat Dextrin (BENEFIBER DRINK MIX PO) Take by mouth. PMH: Past Medical History: Diagnosis Date Acid reflux Anxiety Asthma Breast injury 07/01/2024 fell and bruised medial rt breast Chest pain in adult 08/07/2018 Depression Essential hypertension 08/07/2018 History of transfusion 2003 Hyperlipidemia Hyperlipidemia LDL goal <100 08/07/2018 Hypertension Liver disorder Other fatigue 08/07/2018 Wears glasses PSH: Past Surgical History: Procedure Laterality Date BREAST CYST ASPIRATION BREAST CYST EXCISION Left 1997? CHOLECYSTECTOMY COLONOSCOPY W/ POLYPECTOMY HYSTERECTOMY HYSTERECTOMY 2004 KNEE ARTHROPLASTY Right OOPHORECTOMY TONSILLECTOMY Immunization History: Influenza: UTD Pneumococcal: UTD Tetanus: UTD Social History: Tobacco: Social History Tobacco Use Smoking Status Former Types: Cigarettes Passive exposure: Yes Smokeless Tobacco Never Alcohol: Social History Substance and Sexual Activity Alcohol Use Yes Comment: weekend, 2 - 3 drinks/month Physical Exam:BP 131/56 (BP Location: Right arm, Patient Position: Sitting) Pulse 79 Temp 98 ??F (36.7 ??C) (Temporal) Resp 16 Ht 157.5 cm (62 ) Wt 73.7 kg (162 lb 7.7 oz) SpO2 93% BMI 29.72 kg/m?? General Appearance: Alert, cooperative, no distress, appears stated age Head: Normocephalic, without obvious abnormality, atraumatic Lungs: Clear to auscultation bilaterally, respirations unlabored Heart: Regular rate and rhythm, S1 and S2 normal Abdomen: Soft without tenderness Extremities: Extremities normal, atraumatic, no cyanosis or edema Skin: Skin color, texture, turgor normal, no rashes or lesions Neurologic: Grossly intact Results Review: LABS: Lab Results Component Value Date WBC 6.90 10/29/2024 HGB 12.3 10/29/2024 HCT 37.9 10/29/2024 MCV 89.6 10/29/2024 PLT 178 10/29/2024 GLUCOSE 109 (H) 02/17/2024 BUN 19 02/17/2024 CREATININE 0.98 02/17/2024 NA 139 02/17/2024 K 4.5 10/29/2024 CL 105 02/17/2024 CO2 21.0 (L) 02/17/2024 PHOS 2.4 (L) 02/17/2024 CALCIUM 10.4 02/17/2024 ALBUMIN 4.5 02/17/2024 RADIOLOGY: Imaging Results (Last 72 Hours) No results found for the last 72 hours. I reviewed the patient's new clinical results. Cancer Staging (if applicable) Cancer Patient: __ yes __no __unknown; If yes, clinical stage T:__ N:__M:__, stage group or __N/A Impression: Primary hyperparathyroidism Plan: PARATHYROIDECTOMY Arelis Hassan APRN 11/17/2024 08:22 EDT Cosigned by Hussein Esparza MD at 11/17/2024 10:50 AM EDT Associated attestation - Hussein Esparza MD - 11/17/2024 10:50 AM EDT I have reviewed this documentation and agree. documented in this encounter Nursing Notes * Audra Mcelroy RN - 11/17/2024 12:42 PM EDT Caregiver Telephone Number Jude Kelly, spouse, documented in this encounter OR Notes * Op Note - Hussein Esparza MD - 11/17/2024 11:50 AM EDT General Surgery Operative Note PARATHYROIDECTOMY Procedure Report Patient Name: Lilibeth Kelly Date of : 1955 [id number] Date of Surgery: 11/17/2024 Pre-op Diagnosis: Primary hyperparathyroidism Post-op Diagnosis: Same Procedure(s): PARATHYROIDECTOMY Surgeon: Hussein Esparza MD Projection Camera Operator: Donnell Ayala PA Anesthesia: General Estimated Blood Loss: minimal Complications: None Implants: Implant Name Type Inv. Item Serial No. Liner Checker Lot No. LRB No. Used Action CLIP LIGAT VASC HORIZON TI MD PEDRO 6CT - [id number] Implant CLIP LIGAT VASC HORIZON TI MD PEDRO 6CT TELEFLEX MEDICAL N/A 1 Implanted CLIP LIGAT VASC HORIZON TI MD PEDRO 6CT - [id number] Implant CLIP LIGAT VASC HORIZON TI MD PEDRO 6CT TELEFLEX MEDICAL N/A 1 Implanted CLIP LIGAT VASC HORIZON TI SM YEL 6CT - [id number] Implant CLIP LIGAT VASC HORIZON TI SM YEL 6CT TELEFLEX MEDICAL N/A 1 Implanted CLIP LIGAT VASC HORIZON TI SM YEL 6CT - [id number] Implant CLIP LIGAT VASC HORIZON TI SM YEL 6CT TELEFLEX MEDICAL N/A 1 Implanted HEMOST ABS SURGICEL ORIG 4X8IN STRL - [id number] Implant HEMOST ABS SURGICEL ORIG 4X8IN STRL ETHICON DIV OF J AND J N/A 1 Implanted Specimen: Specimens ID Source Type Tests Collected By Collected At Frozen? A Parathyroid Gland Tissue TISSUE PATHOLOGY EXAM Hussein Esparza MD 11/17/24 1209 Yes Description: LEFT INFERIOR PARATHYROID FS Findings: Enlarged adenomatous left inferior parathyroid gland with grossly normal-appearing left superior, right superior, and right inferior parathyroid glands Indications: The patient is a 69-year-old female with a history of primary hyperparathyroidism. 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 Wediscussed the risks, benefits, and alternatives to parathyroidectomy and the patient was agreeable.Informed consent was obtained. Description of Procedure: After obtaining informed consent, the patient was taken to the operating room and placed in supine position. After appropriate DVT and antibiotic prophylaxis, general anesthesia was induced with placement of a NIM tube for nerve monitoring. The neck was prepped and draped in standard sterile fashion. An approximately 6 cm incision was made 2 fingerbreadths superior to the suprasternal notch transversely across the midline neck. The skin was incised using a 15 blade. The dermis and subcutaneous tissue were divided using Bovie electrocautery. The platysma was dissected out and divided using Bovie electrocautery. Subplatysmal flaps were created superiorly to the thyroid cartilage, inferiorly to the sternal notch, and laterally to the sternocleidomastoid muscles. The strap muscles were divided in the midline at the median raphae. Attention was paid to the left neck. The strap muscles were dissected off the anterior and lateral surfaces of the thyroid lobe using Bovie electrocautery. Babcocks were placed on the thyroid lobe and it was retracted anteriorly and medially. A grossly normal-appearing left superior parathyroid gland was identified. An enlarged and adenomatous left inferior parathyroid gland was identified. This was dissected away from surrounding structures using bipolar electrocautery and feeding vessels ligated with clips. This was sent for frozen section evaluation and was consistent with parathyroid tissue. Attention was then paid to the right neck. The strap muscles were dissected off the anterior and lateral surfaces of the thyroid lobe using Bovie electrocautery. Babcocks were placed on the thyroid lobe and it was retracted anteriorly and medially. Grossly normal-appearing right superior and right i nferior parathyroid glands were identified. Valsalva maneuver was performed by anesthesia to assess for any further bleeding and any further bleeding was controlled using placement of clips. After hemostasis was obtained the left and right recurrent laryngeal nerves were grossly intact throughout the entire visualized course and stimulated ap propriately with nerve stimulation. Surgicel was placed in all areas of dissection. The strap muscles were loosely reapproximated using interrupted 3-0 Vicryl. The platysma was reapproximated using interrupted 3-0 Vicryl. The skin was reapproximated using a running subcuticular 4-0 Monocryl. A dry dressing was placed on top of this. The patient awoke from anesthesia without complications and was taken to the PACU in stable condition. Projection Camera Operator: Donnell Ayala PA was responsible for performing the following activities: Retraction, Suction, Suturing, Closing, and Placing Dressing and their skilled assistance was necessary for the success of this case. Hussein Esparza MD Date: 11/17/2024 Time: 12:33 EDT * Brief Op Note - Hussein Esparza MD - 11/17/2024 11:50 AM EDT PARATHYROIDECTOMY Progress Note Lilibeth Paez Robin 11/17/2024 Pre-op Diagnosis: * Hyperparathyroidism, primary Post-Op Diagnosis Codes: * Hyperparathyroidism, primary Procedure(s): Procedure(s): PARATHYROIDECTOMY Surgeon(s): Hussein Esparza MD Anesthesia: General Staff: Putty Tinter Maker: Linn Torres RN; Fallon Parikh RN Scrub Person: Merry Escobar; Nathaniel Mckenna RN Cnmt: Ava Michel PCT Projection Camera Operator: Donnell Ayala PA Orientee: Nikko Machado RN Projection Camera Operator: Donnell Ayala PA Estimated Blood Loss: minimal Urine Voided: * No values recorded between 11/17/2024 11:29 AM and 11/17/2024 12:32 PM * Specimens: Specimens ID Source Type Tests Collected By Collected At Frozen? A Parathyroid Gland Tissue TISSUE PATHOLOGY EXAM Hussein Esparza MD 11/17/24 1209 Yes Description: LEFT INFERIOR PARATHYROID FS Drains: * No LDAs found * Findings: Enlarged adenomatous left inferior parathyroid gland with grossly normal-appearing left superior, right superior, and right inferior parathyroid glands Complications: None Projection Camera Operator: Donnell Ayala PA was responsible for performing the following activities: Retraction, Suction, Suturing, Closing, and Placing Dressing and their skilled assistance was necessary for the success of this case. Hussein Esparza MD Date: 11/17/2024 Time: 12:32 EDT documented in this encounter Plan of Treatment Upcoming Encounters Date Type Department Care Team (Late st Contact Info) Description 06/09/2025 2:15 PM EDT Office Visit [facility] [address] [place] [id number] Eufemia Dickens MD [address] [facility] [address] [place] [address] documented as of this encounter Procedures Procedure Name Priority Date/Time Associated Diagnosis Comments TISSUE PATHOLOGY EXAM Routine 11/17/2024 12:09 PM EDT Hyperparathyroid ism PARATHYROIDECTOMY 11/17/2024 11: 14 AM EDT Hyperparathyroid ism, primary Special Needs ++ documented in this encounter Results * Tissue Pathology Exam (11/17/2024 12:09 PM EDT) Case Report Surgical Pathology Report Case: [id number] Authorizing Provider: Hussein Esparza MD Collected: 11/17/2024 12:09 PM Ordering Location: [facility] Received: 11/17/2024 12:26 PM OR Pathologist: Ema Pat MD Specimen: Parathyroid Gland, LEFT INFERIOR PARATHYROID FS 12:29 PM EDT [facility] Clinical Information Hyperparathyroidism 12:29 PM EDT [facility] Final Diagnosis Thyroid gland, left inferior, parathyroidectomy: Hypercellular parathyroid tissue 12:29 PM EDT [facility] at 1229 EDT Intraoperative Consultation Frozen section: Verbal report given to Dr. Esparza via speakerphone on 11/17/2024 at 12:26 EDT. FROZEN SECTION DIAGNOSIS: Parathyroid gland 1 block; 1 frozen section slide Stains used for Immediate Evaluation are acceptable. 12:29 PM EDT [facility] Gross Description 1. Parathyroid Gland. Received fresh for frozen section labeled left inferior parathyroid FS is a less than 1 g, 1.1 x 0.6 x 0.6 cm red-cerda nodule. A technical account representative section is submitted for frozen section and resubmitted in block 1A. The remainder of the specimen is submitted in block 1B. LDP 08/20/202 5 12:29 PM EDT [facility] Microscopic Description The slides are reviewed and demonstrate histopathologic features supporting the above rendered diagnosis. 12:29 PM EDT [facility] Tissue Parathyroid structure / Unknown 11/17/2024 12:09 PM EDT 11/17/2024 12:26 PM EDT us Hussein Esparza MD PATHOLOGY/CYTOLOGY ORDERAB LES Final Result [facility]
[address] [place] [address], documented in this encounter Visit Diagnoses Diagnosis Primary hyperparathyroidism- Primary Hyperparathyroidism Hyperparathyroidism, unspecified documented in this encounter Administered Medications Inactive Administered Medications - up to 3 most recent administrations Medication Order MAR Action Action Date Dose Rate Site famotidine (PEPCID) tablet 20 mg 20 mg, Oral, Once, On Sat11/17/24 at 0810, For 1 dose Given 11/17/2024 8:48 AM EDT 20 mg fentaNYL citrate (PF) (SUBLIMAZE) 50 mcg/mL injection - ADS Override Pull Starting on Sat11/17/24 at 1324, For 1 dose, Created by cabinet override If given for pain, use the following pain scale: Mild Pain = Pain Score of 1-3, CPOT 1-2 Moderate Pain = Pain Score of 4-6, CPOT 3-4 Severe Pain = Pain Score of 7-10, CPOT 5-8 fentaNYL citrate (PF) (SUBLIMAZE) injection 50 mcg 50 mcg, Intravenous, Every 5 Minutes PRN, Moderate Pain, Starting on Sat11/17/24 at 1250, For 5 doses, If given for pain, use the following pain scale: Mild Pain = Pain Score of 1-3, CPOT 1-2 Moderate Pain = Pain Score of 4-6, CPOT 3-4 Severe Pain = Pain Score of 7-10, CPOT 5-8 Given 11/17/2024 1:25 PM EDT 50 mcg HYDROmorphone (DILAUDID) injection 0.5 mg 0.5 mg, Intravenous, Every 5 Minutes PRN, Severe Pain, Starting on Sat11/17/24 at 1250, For 4 doses, Maximum total dose of hydromorphone is 2 mg. If given for pain, use the following pain scale: Mild Pain = Pain Score of 1-3, CPOT 1-2 Moderate Pain = Pain Score of 4-6, CPOT 3-4 Severe Pain = Pain Score of 7-10, CPOT 5-8 lactated ringers bolus 500 mL 500 mL, Intravenous, at 2,000 mL/hr, Administer over 0.25 Hours, Once As Needed, for hypovolemia, call anesthesiologist before initiating, Starting on Sat11/17/24 at 1250, For 1 dose, Indications: HypovolemiaIndications:Hypovolemia lactated ringers infusion 9 mL/hr, Intravenous, Continuous, Starting on Sat11/18/24 at 0600, For 1 day, May switch to NS IV at KVO if renal / if indicated Restarted 11/17/2024 12:39 PM EDT Currently Infusing 11/17/2024 11:29 AM EDT 9 mL /hr New Bag 11/17/2024 8:48 AM EDT 9 mL/hr 9 mL/hr lidocaine PF 1% (XYLOCAINE) injection 0.5 mL 0.5 mL, Injection, Once As Needed, IV Start, Starting on Sat11/17/24 at 0809, For 1 dose Given 11/17/2024 8:48 AM EDT 0.5 mL ondansetron (ZOFRAN) injection 4 mg 4 mg, Intravenous, Once As Needed, Nausea, Vomiting, If not given pre-op/intra-op, Starting on Sat11/17/24 at 1250, For 1 dose, If BOTH ondansetron (ZOFRAN) and promethazine (PHENERGAN) are ordered use ondansetron first and THEN promethazine IF ondansetron is ineffective. oxyCODONE-acetaminophen (PERCOCET) 5-325 MG per tablet - ADS Override Pull Starting on Sat11/17/24 at 1404, For 1 dose, Created by jasperinet rileyide [GABRIEL] Do not exceed 4 grams of acetaminophen in a 24 hr period. Max dose of 2gm for AST/ALT greater than 120 units/L If given for pain, use the following pain scale: Mild Pain = Pain Score of 1-3, CPOT 1-2 Moderate Pain = Pain Score of 4-6, CPOT 3-4 Severe Pain = Pain Score of 7-10, CPOT 5-8 oxyCODONE-acetaminophen (PERCOCET) 5-325 MG per tablet 1 tablet 1 tablet, Oral, Once As Needed, Moderate Pain, Starting on Sat11/17/24 at 1236, For 5 days, Based on patient request - if ordered for moderate or severe pain, provider allows for administration of a medication prescribed for a lower pain scale. [GABRIEL] Do not exceed 4 grams of acetaminophen in a 24 hr period. Max dose of 2gm for AST/ALT greater than 120 units/L If given for pain, use the following pain scale: Mild Pain = Pain Score of 1-3, CPOT 1-2 Moderate Pain = Pain Score of 4-6, CPOT 3-4 Severe Pain = Pain Score of 7-10, CPOT 5-8 Given 11/17/2024 2:05 PM EDT 1 tablet documented in this encounter Active and Recently Administered Medications Times are shown in EDT. Scheduled Medication Order 11/15/2024 11/16/2024 11/17/2024 ceFAZolin 2000 mg IVPB in 100 mL NS (MBP) (COMPLETED) 2,000 mg, Intravenous, Administer over 30 Minutes, Once, On Sat11/17/24 at 0829, For 1 dose, Caution: Look alike/sound alike drug alert, Indications: Surgical Prophylaxis 1129 (New Bag - Prov ider: Lilibeth Duarte CRNA) famotidine (PEPCID) tablet 20 mg (COMPLETED) 20 mg, Oral, Once, On Sat11/17/24 at 0810, For 1 dose 0848 (Given - Provid er: Colleen Guerra RN) Continuous Medication Order 11/15/2024 11/16/2024 11/17/2024 lactated ringers infusion 9 mL/hr, Intravenous, Continuous, Starting on Sat11/18/24 at 0600, For 1 day, May switch to NS IV at [facility] if renal / if indicated 0848 (New Bag - Prov ider: Colleen Guerra RN)1129 (Currently Infusing - Provider: Lilibeth Duarte CRNA)1238 (Paused - Provider: Valencia Riddle CRNA - Comment: Switch to gravity)1239 (Restarted - Provider: Valencia Riddle CRNA)1643 (Due: Order Ending - Provider: Automatic Discharge Provider - Comment: [Order ends at this time. Document the following action when infusion is complete: Stopped]) PRN Medication Order 11/15/2024 11/16/2024 11/17/2024 bupivacaine 0.25%-EPINEPHrine 1:019788 (MARCAINE w/EPI) injection (CANCELED) As Needed, Starting on Sat11/17/24 at 1155 1155 (Given - Provid er: Hussein Esparza MD) fentaNYL citrate (PF) (SUBLIMAZE) injection 50 mcg 50 mcg, Intravenous, Every 5 Minutes PRN, Moderate Pain, Starting on Sat11/17/24 at 1250, For 5 doses, If given for pain, use the following pain scale: Mild Pain = Pain Score of 1-3, CPOT 1-2 Moderate Pain = Pain Score of 4-6, CPOT 3-4 Severe Pain = Pain Score of 7-10, CPOT 5-8 1325 (Given - Provid er: Liv Sarah RN) HYDROmorphone (DILAUDID) injection 0.5 mg 0.5 mg, Intravenous, Every 5 Minutes PRN, Severe Pain, Starting on Sat11/17/24 at 1250, For 4 doses, Maximum total dose of hydromorphone is 2 mg. If given for pain, use the following pain scale: Mild Pain = Pain Score of 1-3, CPOT 1-2 Moderate Pain = Pain Score of 4-6, CPOT 3-4 Severe Pain = Pain Score of 7-10, CPOT 5-8 lactated ringers bolus 500 mL 500 mL, Intravenous, at 2,000 mL/hr, Administer over 0.25 Hours, Once As Needed, for hypovolemia, call anesthesiologist before initiating, Starting on Sat11/17/24 at 1250, For 1 dose, Indications: Hypovolemia lidocaine PF 1% (XYLOCAINE) injection 0.5 mL (COMPLETED) 0.5 mL, Injection, Once As Needed, IV Start, Starting on Sat11/17/24 at 0809, For 1 dose 0848 (Given - Provid er: Colleen Guerra RN) ondansetron (ZOFRAN) injection 4 mg 4 mg, Intravenous, Once As Needed, Nausea, Vomiting, If not given pre-op/intra-op, Starting on Sat11/17/24 at 1250, For 1 dose, If BOTH ondansetron (ZOFRAN) and promethazine (PHENERGAN) are ordered use ondansetron first and THEN promethazine IF ondansetron is ineffective. ondansetron (ZOFRAN) injection 4 mg 4 mg, Intravenous, Once As Needed, Nausea, Vomiting, Starting on Sat11/17/24 at 1236, For 1 dose, If BOTH ondansetron (ZOFRAN) and promethazine (PHENERGAN) are ordered use ondansetron first and THEN promethazine IF ondansetron is ineffective. oxyCODONE-acetaminophen (PERCOCET) 5-325 MG per tablet 1 tablet 1 tablet, Oral, Once As Needed, Moderate Pain, Starting on Sat11/17/24 at 1236, For 5 days, Based on patient request - if ordered for moderate or severe pain, provider allows for administration of a medication prescribed for a lower pain scale. [GABRIEL] Do not exceed 4 grams of acetaminophen in a 24 hr period. Max dose of 2gm for AST/ALT greater than 120 units/L If given for pain, use the following pain scale: Mild Pain = Pain Score of 1-3, CPOT 1-2 Moderate Pain = Pain Score of 4-6, CPOT 3-4 Severe Pain = Pain Score of 7-10, CPOT 5-8 1405 (Given - Provid er: Audra Mcelroy RN) sterile water irrigation solution (CANCELED) As Needed, Starting on Sat11/17/24 at 1155 1155 (Given - Provid er: Linn Torres RN - Comment: TO STERILE FIELD) documented in this encounter Care Teams Senior Engineering Manager Relationship Specialty Start Date End Date Selwyn Zaidi MD [address] [facility] [address] [facility] [place] [id number] PCP - General Internal Medicine 08/07/18 documented as of this encounter
--- OUTSIDE RECORDS SUMMARY | 2024-11-17 09:27 | XMS_ITS | Encounter Summary ---
[facility] Address [address] [place] [address] Care Team Providers Care Extractor Tender Raw Stock Name Role Phone Selwyn Zaidi MD Primary Care Provider [phone] Reason for Visit * Auth/Cert Specialty Diagnoses / Procedures Referred By Libby cleaning Referred To Contact Procedures PARATHYROIDECTOMY Referral ID Status Reason Start Date Expiration Date Visits Re quested Visits Authorized [id number] 1 1 Encounter Details Date Type Department Care Team (Late st Contact Info) Description 11/17/2024 9:27 AM EDT - 11/17/2024 11:14 AM EDT Surgery [facility] [address] [phone] Hussein Esparza MD [address] [facility] [address] [place] [address] PARATHYROIDECTOMY Social History Tobacco Use Types Packs/Day Years [...] or training? Not on file Preferred Language Tanzanian 10/29/2024 Comments No Sex and Gender Information Value Date Recorded Sex Assigned at Female 10/27/2024 4:32 PM EDT Legal Sex Female 12:19 PM EDT Gender Identity Not on file Sexual Orientation Not on file documented as of this encounter Last Filed Vital Signs Vital Sign Reading Time Taken Comments Blood Pressure 131/56 11/17/2024 8:12 AM EDT Pulse 79 11/17/2024 8:12 AM EDT Temperature 36.7 C (98 F) 11/17/2024 8:12 AM EDT Respiratory Rate 16 11/17/2024 8:12 AM EDT Oxygen Saturation 93% 11/17/2024 8:12 AM EDT Inhaled Oxygen Concentration - - Weight [...] Month) No 11/17/2024 8:15 AM EDT Colleen Guerra RN * Calculated C-SSRS Risk Score (Lifetime/Recent) Answer Date of Assessment Author No Risk Indicated 11/17/2024 8:15 AM EDT Brijesh Guerra RN * [place] Suicide Severity Rating Scale (Screener/Recent Self-Report) Question [...] through Care Everywhere. * Parathyroidectomy Care After (Tanzanian) * General Anesthesia Adult Care After (Tanzanian) documented in this encounter Medications at Time [...] of this encounter H&P Notes * Arelis Hassan APRN - 11/17/2024 8:21 AM EDT Pre-Op H&P Lilibeth Kelly [id number] 1955 Chief complaint: Hyperparathyroidism Subjective: Patient is [...] 1 drop to both eyes As Needed. Redfox-3 Fatty Acids (FISH OIL) 1200 MG capsule [...] Name: Lilibeth Kelly Date of : 1955 [id number] Date of Surgery: 11/17/2024 Pre-op Diagnosis: Primary hyperparathyroidism Post-op Diagnosis: Same Procedure(s): PARATHYROIDECTOMY Surgeon: Hussein Esparza MD Board Catcher: Donnell Ayala PA Anesthesia: General Estimated Blood Loss: minimal Complications: None Implants: Implant Name Type Inv. Item Serial No. Podiatric Surgeon Lot No. LRB No. Used Action CLIP LIGAT VASC HORIZON TI PEDRO 6CT - [id number] Implant CLIP LIGAT VASC HORIZON TI MD PEDRO 6CT TELEFLEX MEDICAL N/A 1 Implanted CLIP LIGAT VASC HORIZON TI MD PEDRO 6CT - [id number] Implant CLIP LIGAT VASC HORIZON TI MD PEDRO 6CT TELEFLEX MEDICAL N/A 1 Implanted CLIP LIGAT VASC HORIZON TI SM YEL 6CT - [id number] Implant CLIP LIGAT VASC HORIZON TI SM YEL 6CT TELEFLEX MEDICAL N/A 1 Implanted CLIP LIGAT VASC HORIZON TI SM YEL 6CT - [id number] Implant CLIP LIGAT VASC HORIZON TI SM YEL 6CT TELEFLEX MEDICAL N/A 1 Implanted HEMOST ABS SURGICEL ORIG 4X8IN STRL - [id number] Implant HEMOST ABS SURGICEL ORIG 4X8IN STRL [...] taken to the PACU in stable condition. Board Catcher: Donnell Ayala PA was responsible for performing the following activities: Retraction, Suction, Suturing, Closing, and Placing Dressing and their skilled assistance was necessary for the success of this case. Hussein Esparza MD Date: 11/17/2024 Time: 12:33 EDT * Brief Op Note - Hussein Esparza MD - 11/17/2024 11:50 AM EDT PARATHYROIDECTOMY Progress Note Lilibeth Kelly 11/17/2024 Pre-op Diagnosis: * Hyperparathyroidism, primary Post-Op Diagnosis Codes: * Hyperparathyroidism, primary Procedure(s): Procedure(s): PARATHYROIDECTOMY Surgeon(s): Hussein Esparza MD Anesthesia: General Staff: Service Desk Agent: Linn Torres RN; Fallon Parikh RN Scrub Person: Merry Escobar; Nathaniel Mckenna RN Manager Cath Lab: Ava Michel PCT Board Catcher: Donnell Ayala PA Orientee: Nikko Machado RN Board Catcher: Donnell Ayala PA Estimated Blood Loss: minimal [...] and right inferior parathyroid glands Complications: None Board Catcher: Donnell Ayala PA was responsible for performing the following activities: Retraction, Suction, Suturing, Closing, and Placing Dressing and their skilled assistance was necessary for the success of this case. Hussein Esparza MD Date: 11/17/2024 Time: 12:32 EDT documented in this encounter Plan of Treatment Upcoming Encounters Date Type Department Care Team (Late st Contact Info) Description 06/09/2025 2:15 PM EDT Office Visit [facility] [address] [place] [phone] Eufemia Dickens MD [address] [facility] [address] [place] [address] documented as of this encounter Procedures Procedure Name Priority Date/Time Associated Diagnosis Comments TISSUE PATHOLOGY EXAM Routine 11/17/2024 12:09 PM EDT Hyperparathyroid ism PARATHYROIDECTOMY 11/17/2024 11: 14 AM EDT Hyperparathyroid ism, primary Special Needs ++ documented in this encounter Results * Tissue Pathology Exam (11/17/2024 12:09 PM EDT) Case Report Surgical Pathology Report Case: [id number] Authorizing Provider: Hussein Esparza MD Collected: 11/17/2024 12:09 PM Ordering Location: [facility] Received: 11/17/2024 12:26 PM OR Pathologist: Ema Pat MD Specimen: Parathyroid Gland, LEFT INFERIOR PARATHYROID FS 12:29 PM EDT [facility] Clinical Information Hyperparathyroidism 12:29 PM EDT [facility] Final Diagnosis Thyroid gland, left inferior, parathyroidectomy: Hypercellular parathyroid tissue 12:29 PM EDT [facility] at 1229 EDT Intraoperative Consultation Frozen section: Verbal report given to Dr. Esparza via speakerphone on 11/17/2024 at 12:26 EDT. FROZEN SECTION DIAGNOSIS: Parathyroid gland 1 block; 1 frozen section slide Stains used for Immediate Evaluation are acceptable. 12:29 PM EDT [facility] Gross Description 1. Parathyroid Gland. Received fresh for frozen section labeled left inferior parathyroid FS is a less than 1 g, 1.1 x 0.6 x 0.6 cm red-cerda nodule. A technical account representative section is submitted for frozen section and resubmitted in block 1A. The remainder of the specimen is submitted in block 1B. LDP 12:29 PM EDT [facility] Microscopic Description The slides are reviewed and demonstrate histopathologic features supporting the above rendered diagnosis. 12:29 PM EDT [facility] Tissue Parathyroid structure / Unknown 11/17/2024 12:09 PM EDT 11/17/2024 12:26 PM EDT us Hussein Esparza MD PATHOLOGY/CYTOLOGY ORDERAB LES Final Result [facility]
[address] [place] [address], [place] [phone] documented in this encounter Visit Diagnoses Diagnosis Primary hyperparathyroidism- Primary Hyperparathyroidism Hyperparathyroidism, unspecified Hyperparathyroidism, primary Primary hyperparathyroidism documented in this encounter Administered Medications Inactive Administered Medications - up to 3 most recent administrations Medication Order MAR Action Action Date Dose Rate Site bupivacaine 0.25%-EPINEPHrine 1:995549 (MARCAINE w/EPI) injection As Needed, Starting on Sat11/17/24 at 1155 Given 11/17/2024 11:55 AM EDT 30 mL Neck famotidine (PEPCID) tablet 20 mg 20 mg, [...] day, May switch to NS IV at [facility] if renal / if indicated Restarted 11/17/2024 [...] at 1404, For 1 dose, Created by peter giraldo [GABRIEL] Do not exceed 4 grams of [...] Given 11/17/2024 2:05 PM EDT 1 tablet sterile water irrigation solution As Needed, Starting on Sat11/17/24 at 1155 Given 11/17/2024 11:55 AM EDT 1,000 mL documented in this encounter Active and Recently Administered Medications Times are shown in EDT. Scheduled Medication Order 11/15/2024 11/16/2024 11/17/2024 ceFAZolin 2000 mg IVPB in 100 mL NS (MBP) (COMPLETED) 2,000 mg, Intravenous, Administer over 30 Minutes, Once, On Sat11/17/24 at 0829, For 1 dose, Caution: Look alike/sound alike drug alert, Indications: Surgical Prophylaxis 1129 (New Bag - Prov ider: Lilibeth Duarte, FABIOLA) famotidine (PEPCID) tablet 20 mg (COMPLETED) 20 [...] Medication Order 11/15/2024 11/16/2024 11/17/2024 bupivacaine 0.25%-EPINEPHrine 1:[id number] (MARCAINE w/EPI) injection (CANCELED) As Needed, Starting [...] FIELD) documented in this encounter Care Teams Extractor Tender Raw Stock Relationship Specialty Start Date End Date Selwyn Zaidi MD [address] [facility] [address] [place] [address] PCP - General Internal Medicine 08/07/18 documented as of this encounter
--- OUTSIDE RECORDS SUMMARY | 2024-11-17 11:29 | XMS_ITS | Encounter Summary ---
Author Organization [facility] Address [address] [place] [address] Care Team Providers Care Silver Recovery Operator Name Role Phone Selwyn Zaidi MD Primary Care Provider [phone] Reason for Visit * Auth/Cert Specialty Diagnoses / Procedures Referred By Libby cleaning Referred To Contact Procedures PARATHYROIDECTOMY Referral ID Status Reason Start Date Expiration Date Visits Re quested Visits Authorized [id number] 1 1 Encounter Details Date Type Department Care Team (Late st Contact Info) Description 11/17/2024 11:29 AM EDT Anesthesia Event [facility] OR [address] [place] [address] Matt Park Jr., MD [address] [place] [id number] Anesthesia Record Procedure Summary Procedure Name Responsible Anesthesiologist Anesthesia Start Time Anesthesia Stop Time PARATHYROIDECTOMY (Neck) Matt Park Jr., MD 11/17/24 1129 11/17/24 1248 Events Date Time Event Comment 11/17/2024 0905 1124 AN Equip Check 1129 An Start The patient was reevaluated immediately before moderate or deep sedation use and before anesthesia induction. 1129 An Start Data 1135 An Induction 1138 An Intubation 1239 An Extubation 1242 an stop data 1248 Handoff to RN The following has been completed: 1. Identification of Patient, obrien family member(s) or patient surrogate 2. Identification of the responsible Practitioner (primary service) 3. Discussion of the pertinent/attainable medical history 4. Discussion of the surgical/procedure course (procedure, reason for surgery, procedure performed) 5. Intraoperative anesthetic management and issue/concerns to include things such as airway, hemodynamics, narcotic, sedation level and paralytic management and intravenous fluids/blood products and urine output during the procedure 6. Expectations/Plans for the early post-procedure period to include things such as anticipated course (anticipatory guidance), complications, need for laboratory or ECG and medication administration 7. Opportunity for questions and acknowledgment of understanding of report from the receiving PACU/ICU team 1248 An Stop Meds Name Total propofol 10 MG/ML 260.55 mg lidocaine PF 1% 1 % 50 mg rocuronium 50 MG/5ML 5 mg dexAMETHasone 4 MG/ML 8 mg ondansetron 2 mg/mL 4 mg Succinylcholine Chloride 200 MG/10ML 140 mg fentaNYL citrate (PF) 100 MCG/2ML 100 mc g ePHEDrine Sulfate (Pressors) 50 MG/ML 10 mg ceFAZolin 2000 mg IVPB in 100 mL NS (MBP ) 2,000 mg lactated ringers infusion 1,000 mL * Agents Name O2 N2O Air Sevoflurane Inspired Sevoflurane * Blood No blood administrations on file. Lines, Drains, and Airways Type Details Placement Removal Wound 06/26/23; Y; Right; anterior; knee; Incision 06/26/23 0000 by Marily Sadler PT Wound 11/17/24; midline; t hroat; Surgical; Closed Surgi 11/17/24 0000 by Linn Torres RN Peripheral IV Placement Date: 10/30 12/24; Placement Time: 0816; Catheter Size: 18 G; Orientation: Left, Posterior; Location: Hand; Site Prep: Chlorhexidine; Local Anes: Injectable; Insertion Attempts: 1; Patient Tolerance: Tolerated well; Removal Date: 11/17/24; Removal Time: 1430 11/17/24 0816 by Colleen Guerra RN 11/17/24 1430 by Audra Mcelroy RN ETT Placement Date: 10/30 12/24; Placement Time: 1138 (created via procedure documentation); Type: Neuromonitoring ETT; Blade Size: 3; Location: Oral; Removal Date: 11/17/24; Removal Time: 1239 11/17/24 1138 by Lilibeth Duarte CRNA 11/17/24 1239 by Lilibeth Duarte CRNA documented in this encounter Social History Tobacco Use Types Packs/Day Years [...] or training? Not on file Preferred Language Samoan 10/29/2024 Comments No Sex and Gender Information Value Date Recorded Sex Assigned at Female 10/27/2024 4:32 PM EDT Legal Sex Female 12:19 PM EDT Gender Identity Not on file Sexual Orientation Not on file documented as of this encounter Functional Status * Question Answer [...] 8:15 AM EDT Brijesh Guerra RN * [place] Suicide Severity Rating Scale (Screener/Recent Self-Report) Question Answer Date of Assessment Author 6. Suicidal Behavior (Lifetime) No 8:15 AM EDT Colleen Guerra RN documented as of this encounter OR Notes * Anesthesia Postprocedure Evaluation - Valencia Riddle CRNA - 11/17/2024 12:47 PM EDT Patient: Lilibeth Kelly Procedure Summary Date: 11/17/24 Room / Location: [facility] Anesthesia Start: 1128 Anesthesia Stop: Procedure: PARATHYROIDECTOMY (Neck) Diagnosis: Hyperparathyroidism, primary Surgeons: Hussein Esparza MD Provider: Matt Park Jr., MD Anesthesia Type: general ASA Status: 2 92% 152/94 100 Hr 98 F Anesthesia Type: general Vitals No vitals data found for the desired time range. Post Anesthesia Care and Evaluation Patient location during evaluation: PACU Patient participation: complete - patient participated Level of consciousness: awake and alert Pain management: adequate Airway patency: patent Anesthetic complications: No anesthetic complications PONV Status: none Cardiovascular status: hemodynamically stable and acceptable Respiratory status: nonlabored ventilation, acceptable and nasal cannula Hydration status: acceptable * Anesthesia Procedure Notes - Lilibeth Duarte CRNA - 11/17/2024 11:51 AM EDTAssociated Order(s): Airway Airway Reason: elective Date/Time: 11/17/2024 11:38 AM Airway not difficult General Information and Staff Patient location during procedure: OR NURSE UNIT MANAGER/CAA: Lilibeth Duarte CRNA Indications and Patient Condition Indications for airway management: airway protection Preoxygenated: yes MILS not maintained throughout Mask difficulty assessment: 1 - vent by mask Final Airway Details Final airway type: endotracheal airway Successful airway: NIM tube Cuffed: yes Successful intubation technique: video laryngoscopy Adjuncts used in placement: intubating stylet Endotracheal tube insertion site: oral Blade: Xiomara Blade size: 3 Cormack-Lehane Classification: grade I - full view of glottis Placement verified by: chest auscultation and capnometry Measured from: lips ETT/EBT to lips (cm): 20 Number of attempts at approach: 1 Assessment: lips, teeth, and gum same as pre-op and atraumatic intubation Additional Comments Negative epigastric sounds, Breath sound equal bilaterally with symmetric chest rise and fall * Anesthesia Preprocedure Evaluation - Matt Park Jr., MD - 11/17/2024 9:02 AM EDT Anesthesia Evaluation Patient summary reviewed and Nursing notes reviewed no history of anesthetic complications: NPO Solid Status: > 8 hours NPO Liquid Status: > 2 hours Airway Mallampati: I TM distance: >3 FB Neck ROM: full No difficulty expected Dental - normal exam Pulmonary (+) asthma, Cardiovascular ECG reviewed (+) hypertension, hyperlipidemia (-) dysrhythmias, angina, orthopnea, cardiac stents Neuro/Psych (+) psychiatric history Anxiety and Depression (-) seizures, CVA GI/Hepatic/Renal/Endo (+) GERD (-) no renal disease, diabetes, no thyroid disorder Musculoskeletal 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 Pre-procedure education provided Plan discussed with NURSE UNIT MANAGER. CODE STATUS: documented in this encounter Plan of Treatment Upcoming Encounters Date Type Department Care Team (Late st Contact Info) Description 06/09/2025 2:15 PM EDT Office Visit [facility] [address] [place] [address] Eufemia Dickens MD [address] [facility] [address] [place] [address] documented as of this encounter Procedures Procedure Name Priority Date/Time Associated Diagnosis Comments ANESTHESIA INTUBATION Routine 11/17/2024 11:51 AM EDT documented in this encounter Results * BH AN ETT AIRWAY (11/17/2024 11:51 AM EDT) Narrative Lilibeth Duarte CRNA - 11/17/2024 11:51 AM EDT Lilibeth Duarte CRNA 11/17/2024 11:51 AM Airway Reason: elective Date/Time: 11/17/2024 11:38 AM Airway not difficult General Information and Staff Patient location during procedure: OR NURSE UNIT MANAGER/CAA: Lilibeth Duarte CRNA Indications and Patient Condition Indications for airway management: airway protection Preoxygenated: yes MILS not maintained throughout Mask difficulty assessment: 1 - vent by mask Final Airway Details Final airway type: endotracheal airway Successful airway: NIM tube Cuffed: yes Successful intubation technique: video laryngoscopy Adjuncts used in placement: intubating stylet Endotracheal tube insertion site: oral Blade: Xiomara Blade size: 3 Cormack-Lehane Classification: grade I - full view of glottis Placement verified by: chest auscultation and capnometry Measured from: lips ETT/EBT to lips (cm): 20 Number of attempts at approach: 1 Assessment: lips, teeth, and gum same as pre-op and atraumatic intubation Additional Comments Negative epigastric sounds, Breath sound equal bilaterally with symmetric chest rise and fall Matt Park Jr., MD ANESTHESIA ORDERABLES F inal Result documented in this encounter Visit Diagnoses Not on filedocumented in this encounter Administered Medications Inactive Administered Medications - up to 3 most recent administrations Medication Order MAR Action Action Date Dose Rate Site ceFAZolin 2000 mg IVPB in 100 mL NS (MBP) 2,000 mg, Intravenous, Administer over 30 Minutes, Once, On Sat11/17/24 at 0829, For 1 dose, Caution: Look alike/sound alike drug alert, Indications: Surgical ProphylaxisIndications:Surgical Prophylaxis New Bag 11/17/2024 11:29 AM EDT 2,000 mg dexAMETHasone (DECADRON) injection Intravenous, As Needed, Starting on Sat11/17/24 at 1142 Given 11/17/2024 11:42 AM EDT 8 mg ePHEDrine Sulfate (Pressors) Intravenous, As Needed, Starting on Sat11/17/24 at 1148 Given 11/17/2024 11:48 AM EDT 10 mg fentaNYL citrate (PF) (SUBLIMAZE) injection Intravenous, As Needed, Starting on Sat11/17/24 at 1135 Given 11/17/2024 12:03 PM EDT 50 mcg Given 11/17/2024 11:35 AM EDT 50 mcg lactated ringers infusion 9 mL/hr, Intravenous, Continuous, Starting on Sat11/18/24 at 0600, For 1 day, May switch to NS IV at KVO if renal / if indicated Restarted 11/17/2024 12:39 PM EDT Currently Infusing 11/17/2024 11:29 AM EDT 9 mL /hr New Bag 11/17/2024 8:48 AM EDT 9 mL/hr 9 mL/hr lidocaine PF 1% (XYLOCAINE) injection Intravenous, As Needed, Starting on Sat11/17/24 at 1135 Given 11/17/2024 11:35 AM EDT 50 mg ondansetron (ZOFRAN) injection Intravenous, As Needed, Starting on Sat11/17/24 at 1203 Given 11/17/2024 12:03 PM EDT 4 mg propofol (DIPRIVAN) injection Intravenous, As Needed, Starting on Sat11/17/24 at 1135 New Bag 11/17/2024 11:48 AM EDT 25 mcg/kg/min 11.055 mL/hr Given 11/17/2024 11:35 AM EDT 150 mg rocuronium (ZEMURON) injection Intravenous, As Needed, Starting on Sat11/17/24 at 1135 Given 11/17/2024 11:35 AM EDT 5 mg Succinylcholine Chloride (ANECTINE) injection Intravenous, As Needed, Starting on Sat11/17/24 at 1135 Given 11/17/2024 11:35 AM EDT 140 mg documented in this encounter Care Teams Silver Recovery Operator Relationship Specialty Start Date End Date Selwyn Zaidi MD [address] [facility] [address] [place] [id number] PCP - General Internal Medicine 08/07/18 documented as of this encounter
--- OUTSIDE RECORDS SUMMARY | 2024-12-14 14:00 | XMS_ITS | Encounter Summary ---
Author Organization [employer] ([place], [place], [place], [place]) Address [address] [place] [address] Care Team Providers Care Trains Service Conductor Name Role Phone Unavailable Primary Care Provider Unavailabl e Reason for Visit * Reason Comments Follow-up Reilly hand pain Encounter Details Date Type Department Care Team (Latest Contact Info) Description 12/14/2024 2:00 PM EDT Office Visit [facility] - [facility] [address] [place] [address] Jason Wang PA-C [address] [place] [address] Primary osteoarthritis of first carpometacarpal joint of left hand (Primary Dx); Primary osteoarthritis of first carpometacarpal joint of right hand; Right PTJ capsulitis; Trigger index finger of left hand; Trigger index finger of right hand; Bilateral carpal tunnel syndrome Social History Tobacco Use Types Packs/Day Years Used Date Smoking Tobacco: Never Smokeless Tobacco: Never Tobacco Cessation:Counseling Given: No Alcohol Use Standard Drinks/Week Comments Never 0 (1 standard drink = 0.6 oz pur e alcohol) Comments Unknown Sex and Gender Information Value Date Recorded Sex Assigned at Not on file Legal Sex Female 5:31 PM CDT Gender Identity Not on file Sexual Orientation Not on file documented as of this encounter Last Filed Vital Signs Vital Sign Reading Time Taken Comments Blood Pressure - - Pulse - - Temperature - - Respiratory Rate - - Oxygen Saturation - - Inhaled Oxygen Concentration - - Weight 72.6 kg (160 lb) 12/14/2024 2:23 PM EDT Height 157.5 cm (5' 2 ) 12/14/2024 2:23 PM EDT Body Mass Index 29.26 12/14/2024 2:23 PM EDT documented in this encounter Progress Notes * Jason Wang PA-C - 12/14/2024 2:00 PM EDTAssociated Order(s): Bilateral 1st CMCJ injections, Bilateral index trigger finger injections, Right PTJ injection Post-Procedure Diagnose(s): Primary osteoarthritis of first carpometacarpal joint of left hand; Primary osteoarthritis of first carpometacarpal joint of right hand; Wrist capsulitis; Trigger index finger of left hand; Trigger index finger of right hand Subjective: Lilibeth Kelly is a 69 y.o. female. No ref. provider found Work Comp []Yes [x]No Hand Dominance: right-handed Employment: Retired Chief Complaint Patient presents with Follow-up Reilly hand pain HPI Injection Visit: Patient returns today with c/o pain in reilly hands. She was last seen 11/03/[address] injections which she feels did provide relief. She also c/o pain and locking in Right index fingers. Pain along volar aspect of right wrist. Pain without locking to left index finger. C/o pain in bilateral thumbs. States she has not had any prior treatment or xrays since her last visit in 2021. 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 Date of Onset of Symptoms: [x]On-going problem Trauma: []+ [x]- Mechanism of Injury: Pain Location: Bilateral hands Severity (1-10) 5 Quality: Sharp, Aching, and Burning Numbness: [x]+ []- [x]Occasional []Constant Tingling: [x]+ []- [x]Occasional []Constant Night Symptoms: [x]+ []- x/wk Additional Symptoms: []None []Drainage []Neck Pain []Redness []Swelling []Stiffness []Bruising [x]Weakness []Drop Items []Other: Review of Systems [x]No change from previous [x]Change from previous [x]Reviewed ROS by Jason Wang PA-C General: No recent fever or chills, no recent weight loss or weight gain, no insomnia HEENT: No change in vision, no glasses/contacts, no hearing loss, no tinnitus, no vertigo, no congestion/sinus issues CVS: No chest pain, no palpitations, no edema, no varicose veins Resp: No dyspnea, no wheezing, no cough, no hemoptysis GI: No dysphagia, no nausea, no vomiting, no heart burn, no constipation, no diarrhea : No dysuria, no hematuria, no nocturia, no history of chronic UTI Musculoskeletal: See HPI Derm: No rash, no abrasions, no skin discoloration, no history or MRSA Neuro: No headaches, no seizures, no stroke, no tremors, no muscle weakness, no difficulty walking,no numbness/tingling, no neuropathy Endo: No cold/heat intolerance Heme: No abnormal bruising or bleeding Psych: No depression, no anxiety, no fatigue, no mood swings Vitals: 12/14/24 1423 Weight: 72.6 kg (160 lb) Height: 1.575 m (5' 2 ) Past Medical History: Diagnosis Date Anxiety Asthma GERD (gastroesophageal reflux disease) Hypercholesterolemia Hypertension Past Surgical History: Procedure Laterality Date CHOLECYSTECTOMY 1995 HYSTERECTOMY 2003 PARATHYROID GLAND SURGERY 2024 TONSILLECTOMY 1959 Current Outpatient Medications Medication Sig Dispense Refill buPROPion SR (WELLBUTRIN SR) 150 MG 12 hr tablet Take 1 tablet (150 mg total) by mouth daily. dilTIAZem (CARDIZEM CD) 120 MG 24 hr capsule Take 1 capsule (120 mg total) by mouth daily. levocetirizine (XYZAL) 5 MG tablet Take 1 tablet (5 mg total) by mouth daily. LORazepam (ATIVAN) 0.5 MG tablet Take 1 tablet (0.5 mg total) by mouth every 6 (six) hours as needed for anxiety. Max Daily Amount: 2 mg losartan (COZAAR) 100 MG tablet Take 1 tablet (100 mg total) by mouth daily. montelukast (SINGULAIR) 10 mg tablet Take 1 tablet (10 mg total) by mouth. pantoprazole (PROTONIX) 40 MG tablet Take 1 tablet (40 mg total) by mouth nightly. pravastatin (PRAVACHOL) 80 MG tablet Take 1 tablet (80 mg total) by mouth nightly. traZODone (DESYREL) 100 MG tablet Take 1 tablet (100 mg total) by mouth every night as needed. No current facility-administered medications for this visit. Allergies Allergen Reactions Amoxicillin-Pot Clavulanate Rash Beta lactam allergy details Antibiotic reaction: rash Age at reaction: adult Dose to reaction time: days Reason for antibiotic: other Epinephrine required for reaction?: no Tolerated antibiotics: unknown Bacitracin-Polymyxin B Rash Latex Rash Family History Problem Relation Name Age of Onset High blood pressure Other Heart disease Other Diabetes Other Arthritis Other Thyroid disease Other Lung disease Other Hyperlipidemia Other Social History Tobacco Use Smoking status: Never Smokeless tobacco: Never Substance Use Topics Alcohol use: Never Objective: Ht 1.575 m (5' 2 ) Wt 72.6 kg (160 lb) BMI 29.26 kg/m?? Physical Exam Physical Examination: General: [x]Awake, Alert, Oriented [x]Ambulatory [x]No Acute Distress [x]Mucus Membranes pink, moist [x]Pupils equal [x]Respiratory even, unlabored Skin: [x]Warm and dry with good cap refill [] []+ [x]- []+ [x]- []+ [x]- []+ [x]- Dystrophic changes Hypersweating Hypertrichosis Discoloration Wound/Incision: []+ []- Location: Bilateral 1st CMCJ pain and subluxation. Axial loading poorly tolerated with crepitation and grinding. Moderate 1st CMCJ edema. TTP Right wrist over PTJ. No thenar, hypothenar or intrinsic atrophy. No evidence of hypo/hyper pigmentation. [] Healed []NSOI []C/D/I []Ecchymosis []Erythema []Swelling Peripheral Vessels: Palpable pulses: ~[x]~ Radial Artery ~[x]~ Ulnar Artery ~[x]~ Good Capillary Refill José Miguel's Test /____ R/L /____ Hand (+) or (-) Right Left 1st CMC Tenderness [x]+ []- [x]+ []- 1st HUB LEAD Grind [x]+ []- [x]+ []- Deann Nodes []+ []- []+ []- Heberden Nodes []+ []- []+ []- A1 Hannah Tenderness [x]+ []- index [x]+ []- index Triggering [x]+ []- index [x]+ []- index Pain on lateral stress []+ []- []+ []- UCL Instability []+ []- []+ []- RCL Instability []+ []- []+ []- Thenar Atrophy []+ [x]- []+ [x]- Hypothenar Atrophy []+ [x]- []+ [x]- Tinels Compression Right Left Right Left Carpel Tunnel [x]+ []- [x]+ []- Carpal T [x]+ []- [x]+ []- Pronator []+ []- []+ []- Phalen's [x]+ []- [x]+ []- Cubital Tunnel []+ [x]- []+ [x]- Pronator T []+ []- []+ []- Guyon's Canal []+ [x]- []+ [x]- Elbow Hyperflex []+ []- []+ []- Infraclavicular []+ []- []+ []- Infraclavicular []+ []- []+ []- Supraclavicular []+ []- []+ []- Supraclavicular []+ []- []+ []- EMG/NCS: No results found for this or any previous visit. Imaging Treatment: Bilateral 1st CMCJ injections, Bilateral index trigger finger injections, Right PTJ injection Date/Time: 12/14/2024 2:37 PM Performed by: Jason Wang PA-C Authorized by: Jason Wang PA-C Consent: Consent obtained: Verbal and written Consent given by: Patient Risks, benefits, and alternatives were discussed: yes Risks discussed: Bleeding, infection, pain, incomplete drainage, nerve damage and poor cosmetic result Tangent protocol: Procedure explained and questions answered to patient or proxy's satisfaction: yes Relevant documents present and verified: yes Test results available: yes Imaging studies available: yes Site/side marked: yes Immediately prior to procedure, a time out was called: yes Patient identity confirmed: Verbally with patient Pre-procedure details: Preparation: Patient was prepped and draped in the usual sterile fashion Sedation: Sedation type: None Anesthesia: Anesthesia method: Topical application (See MAR) Procedure specific details: Bilateral 1st Carpometacarpal joint injections Each hand was positioned in the lateral position with the CMCJ pointing dorsally. The CMCJ was prepped with alcohol swabs. The CMCJ was identified at the base of the 1st MC with traction applied to the thumb. Bilateral 1st Carpometacarpal joint were injected with 1ml of 1% lidocaine and Kenalog 10mg. Effects from the injection may take several days to be noticeable. Contact the office in 2 weeks if absolutely no improvement noted. Bilateral index trigger finger injections. The hand was positioned in the supine position with the volar hand pointing dorsally. The a1 pulleysite was prepped with alcohol swabs. The a1 hannah was identified at the base of the finger just proximal to the volar MCPJ crease. The a1 hannah was injected with 1ml of 1% lidocaine and Kenalog 10mg. Effects from the injection may take several days to be noticeable. Contact the office in 2 weeks if absolutely no improvement noted. Right PT Joint injection The condition was described to the patient using the hand anatomy chart in the exam room. The hand was positioned in the supine position with the volar wrist pointing dorsally. The skin was prepped with alcohol along the distal ulnar border of the wrist with the PTJ identified just distal to the the volar wrist crease. 1ml of lidocaine 1% mixed with Kenalog 10mg were drawn into a syringe under aseptic conditions and injected atraumatically into the PTJ. A sterile bandaid was applied. Contact the office in 2 weeks if absolutely no improvement noted. Post-procedure details: Procedure completion: Tolerated well, no immediate complications Assessment: ICD-10-CM ICD-9-CM 1. Primary osteoarthritis of first carpometacarpal joint of left hand M18.12 715.14 Bilateral 1st CMCJ injections, Bilateral index trigger finger injections, Right PTJ injection triamcinolone acetonide (KENALOG) injection 10 mg lidocaine (XYLOCAINE) injection 1% 2. Primary osteoarthritis of first carpometacarpal joint of right hand M18.11 715.14 Bilateral 1st CMCJ injections, Bilateral index trigger finger injections, Right PTJ injection triamcinolone acetonide (KENALOG) injection 10 mg lidocaine (XYLOCAINE) injection 1% 3. Right PTJ capsulitis M77.8 726.4 Bilateral 1st CMCJ injections, Bilateral index trigger finger injections, Right PTJ injection triamcinolone acetonide (KENALOG) injection 10 mg lidocaine (XYLOCAINE) injection 1% 4. Trigger index finger of left hand M65.322 727.03 Bilateral 1st CMCJ injections, Bilateral index trigger finger injections, Right PTJ injection triamcinolone acetonide (KENALOG) injection 10 mg lidocaine (XYLOCAINE) injection 1% 5. Trigger index finger of right hand M65.321 727.03 Bilateral 1st CMCJ injections, Bilateral indextrigger finger injections, Right PTJ injection triamcinolone acetonide (KENALOG) injection 10 mg lidocaine (XYLOCAINE) injection 1% 6. Bilateral carpal tunnel syndrome G56.03 354.0 Plan: Discussed with patient treatment options including Osteobiflex, Ice, NSAIDS, 1st CMC joint injection versus 1st CMC joint arthroplasty. Patient states understanding of the options and elects to proceed with Bilateral 1st Carpometacarpal joint injections today. The patient education brochure on CMC osteoarthritis was given to the patient and the anatomy explained. Osteobiflex information given. Discussed with patient treatment options including Ice, NSAIDS, physical therapy, trigger finger injection versus trigger finger release. Patient states understanding of the options and elects to proceed with Bilateral index trigger finger injection today. The patient education brochure on trigger fingers has been provided to the patient and the anatomy explained. Discussed treatment options with patient for PTJ pain including Ice/Nsaids, brace, PT, and injections. Patient states understanding of the options and elects to proceed with Right PT Joint injection today. We discussed our intent to continue with conservative management as long as the injections provide appropriate relief of symptoms or until surgery is elected by the patient. Discussed treatment options for Carpal Tunnel Syndrome, including braces, injections and carpal tunnel release. Patient states understanding of all options and has elected to proceed with conservative observation for minimally symptomatic CTS The patient education brochure on carpal tunnel syndrome has been provided to the patient. Continue carpal tunnel night splints (patient has already purchased) B6/E Vitamins If symptoms persist without benefit from injection after 2 weeks, we will obtain emg/ncs study. Return if symptoms worsen or fail to improve. Patient instructions given. Discussed elevated BMI and elevated BP with patient including risk factors. Patient will follow-up with PCP for intermodal customer service treatment plan. I have examined and questioned the above listed patient and provided or received all documentation,establishing, confirming, and revising as necessary, the findings and statements noted. . EMR/Dragon/Fisher Diving disclaimer: Much of this encounter note is an electronic director translational/translation of spoken language to printed text. The electronic translation of spoken language may permit erroneous, or at times, nonsensical words or phrases to be inadvertently transcribed; Although thenote is reviewed for such errors, some may still exist. documented in this encounter Plan of Treatment Not on file documented as of this encounter Procedures Procedure Name Priority Date/Time Associated Diagnosis Comments FS_[facility]_MODEL GENERAL FORM Routine 12/14/2024 2:37 PM EDT Primary osteoarthritis of first carpometacarpal joint of left hand Primary osteoarthritis of first carpometacarpal joint of right hand Right PTJ capsulitis Trigger index finger of left hand Trigger index finger of right hand documented in this encounter Results * Bilateral 1st CMCJ injections, Bilateral index trigger finger injections, Right PTJ injection (12/14/2024 2:37 PM EDT) Jason Starr PA-C - 12/14/2024 2:37 PM EDT Jason Wang PA-C 12/14/2024 2:49 PM Bilateral 1st CMCJ injections, Bilateral index trigger finger injections, Right PTJ injection Date/Time: 12/14/2024 2:37 PM Performed by: Jason Wang PA-C Authorized by: Jason Wang PA-C Consent: Consent obtained: Verbal and written Consent given by: Patient Risks, benefits, and alternatives were discussed: yes Risks discussed: Bleeding, infection, pain, incomplete drainage, nerve damage and poor cosmetic result Tangent protocol: Procedure explained and questions answered to patient or proxy's satisfaction: yes Relevant documents present and verified: yes Test results available: yes Imaging studies available: yes Site/side marked: yes Immediately prior to procedure, a time out was called: yes Patient identity confirmed: Verbally with patient Pre-procedure details: Preparation: Patient was prepped and draped in the usual sterile fashion Sedation: Sedation type: None Anesthesia: Anesthesia method: Topical application (See MAR) Procedure specific details: Bilateral 1st Carpometacarpal joint injections Each hand was positioned in the lateral position with the CMCJ pointing dorsally. The CMCJ was prepped with alcohol swabs. The CMCJ was identified at the base of the 1st MC with traction applied to the thumb. Bilateral 1st Carpometacarpal joint were injected with 1ml of 1% lidocaine and Kenalog 10mg. Effects from the injection may take several days to be noticeable. Contact the office in 2 weeks if absolutely no improvement noted. Bilateral index trigger finger injections. The hand was positioned in the supine position with the volar hand pointing dorsally. The a1 hannah site was prepped with alcohol swabs. The a1 hannah was identified at the base of the finger just proximal to the volar MCPJ crease. The a1 hannah was injected with 1ml of 1% lidocaine and Kenalog 10mg. Effects from the injection may take several days to be noticeable. Contact the office in 2 weeks if absolutely no improvement noted. Right PT Joint injection The condition was described to the patient using the hand anatomy chart in the exam room. The hand was positioned in the supine position with the volar wrist pointing dorsally. The skin was prepped with alcohol along the distal ulnar border of the wrist with the PTJ identified just distal to the the volar wrist crease. 1ml of lidocaine 1% mixed with Kenalog 10mg were drawn into a syringe under aseptic conditions and injected atraumatically into the PTJ. A sterile bandaid was applied. Contact the office in 2 weeks if absolutely no improvement noted. Post-procedure details: Procedure completion: Tolerated well, no immediate complications Jason Wang PA-C PROCEDURE/MINOR SURGICAL SUKUMAR LEE Final Result documented in this encounter Visit Diagnoses Diagnosis Primary osteoarthritis of first carpometacarpal joint of left hand- Primary Primary osteoarthritis of first carpometacarpal joint of right hand Right PTJ capsulitis Enthesopathy of wrist and carpus Trigger index finger of left hand Trigger index finger of right hand Bilateral carpal tunnel syndrome Carpal tunnel syndrome documented in this encounter Administered Medications Inactive Administered Medications - up to 3 most recent administrations Medication Order MAR Action Action Date Dose Rate Site lidocaine (XYLOCAINE) injection 1% 1 mL Once, intra-articular, On Sat12/14/24 at 1500, For 1 doseIndications:Primary osteoarthritis of first carpometacarpal joint of left hand,Primary osteoarthritis of first carpometacarpal joint of right hand,Wrist capsulitis,Trigger index finger of left hand,Trigger index finger of right hand Given 12/14/2024 2:38 PM EDT 1 mL Other triamcinolone acetonide (KENALOG) injection 10 mg 10 mg Once, intra-articular, On 12/14/24 at 1500, For 1 doseIndications:Primary osteoarthritis of first carpometacarpal joint of left hand,Primary osteoarthritis of first carpometacarpal joint of right hand,Wrist capsulitis,Trigger index finger of left hand,Trigger index finger of right hand Given 12/14/2024 2:39 PM EDT 10 mg Other documented in this encounter
[2024-12-28 15:06] LABS: Hematocrit 39.1 % (37.0-47.0); Hemoglobin 12.4 g/dL (12.2-16.2); Immature Granulocytes % 0.1 %; Mean Corpuscular HGB Conc 31.7 g/dL (31.8-35.4); Mean Corpuscular Hemoglobin 30.0 pg (27.0-31.2); Mean Corpuscular Volume 94.7 fl (81-99); Nucleated Red Blood Cells % 0 %; Platelet Count 215 K/mm3 (142-424); Red Blood Count 4.13 M/mm3 (4.20-5.40); Red Cell Distribution Width-SD 45.1 fL; White Blood Count 7.1 K/mm3 (4.8-10.8)
[2024-12-28 16:56] LABS: Alanine Aminotransferase 13 U/L (12-78); Albumin Level 4.3 g/dl (3.5-5.0); Albumin/Globulin Ratio 1.7 (1.1-1.8); Alkaline Phosphatase 51 U/L (38-126); Anion Gap 13.5 mEq/L (5-15); Aspartate Amino Transferase 16 U/L (14-36); Bilirubin,Total 0.4 mg/dl (0.2-1.3); Blood Urea Nitrogen 21 mg/dl (7-17); Calcium 9.0 mg/dl (8.4-10.2); Carbon Dioxide 27 mmol/L (22.0-30.0); Chloride 106 mmol/L (98-107); Cholesterol 172 mg/dl (140-200); Creatinine,Serum 0.90 mg/dl (0.52-1.04); Estimated Glomerular Filt Rate 62 ml/min (>60); GFR (African American) 75 ML/MIN (>60); Globulin 2.6 g/dL (1.3-3.2); Glucose 78 mg/dl (74-100); HDL Cholesterol 58 mg/dl (40-60); Potassium 4.5 mmoL/L (3.5-5.1); Sodium 142 mmol/L (136-145); Total Protein,Serum 6.9 g/dl (6.3-8.2); Triglycerides 126 mg/dl (30-150)
--- OUTSIDE RECORDS SUMMARY | 2024-12-29 10:42 | XMS_ITS | Clinical Summary ---
Author Organization [employer] ([place], [place], [place], [place]) Address [address] [place] [address] Care Team Providers Care Water Conservationist Name Role Phone Unavailable Primary Care Provider Unavailabl e Allergies Active Allergy Reactions Criticality Noted Date Comments Amoxicillin-Pot Clavulanate Rash Low 04/13/2021 Beta lactam allergy details Antibiotic reaction: rash Age at reaction: adult Dose to reaction time: days Reason for antibiotic: other Epinephrine required for reaction?: no Tolerated antibiotics: unknown Bacitracin-Polymyxin B Rash Low 02/17/2024 Latex Rash Low 02/17/2024 Medications buPROPion SR (WELLBUTRIN SR) 150 MG 12 hr tablet Take 1 tablet (150 mg total) by mouth daily. 09/09/2024 Active levocetirizine (XYZAL) 5 MG tablet Take 1 tablet (5 mg total) by mouth daily. 10/30/2024 Active losartan (COZAAR) 100 MG tablet Take 1 tablet (100 mg total) by mouth daily. 09/22/2024 Active montelukast (SINGULAIR) 10 mg tablet Take 1 tablet (10 mg total) by mouth. 11/16/2024 Active pantoprazole (PROTONIX) 40 MG tablet Take 1 tablet (40 mg total) by mouth nightly. 11/19/2024 Active pravastatin (PRAVACHOL) 80 MG tablet Take 1 tablet (80 mg total) by mouth nightly. 11/12/2024 Active traZODone (DESYREL) 100 MG tablet Take 1 tablet (100 mg total) by mouth every night as needed. 09/18/2024 Active dilTIAZem (CARDIZEM CD) 120 MG 24 hr capsule Take 1 capsule (120 mg total) by mouth daily. 10/05/2024 Active LORazepam (ATIVAN) 0.5 MG tablet Take 1 tablet (0.5 mg total) by mouth every 6 (six) hours as needed for anxiety. Max Daily Amount: 2 mg Active Hospital, Clinic, or Other Facility Administered Medication Ordered Dose Route Frequency Start Date End Date Status triamcinolone acetonide (KENALOG) injection 10 mgIndications:Primary osteoarthritis of first carpometacarpal joint of left hand,Primary osteoarthritis of first carpometacarpal joint of right hand,Wrist capsulitis,Trigger index finger of left hand,Trigger index finger of right hand 10 mg IAtc Once 12/14/2024 5 Ended lidocaine (XYLOCAINE) injection 1%Indications:Primary osteoarthritis of first carpometacarpal joint of left hand,Primary osteoarthritis of first carpometacarpal joint of right hand,Wrist capsulitis,Trigger index finger of left hand,Trigger index finger of right hand 1 mL IAtc Once 12/14/2024 5 Ended Active Problems No known active problems Encounters Date Type Department Care Team Description 12/14/2024 2:00 PM EDT Office Visit [facility] - [facility] [address] [place] [address] Jason Wang PA-C Primary osteoarthritis of first carpometacarpal joint of left hand (Primary Dx); Primary osteoarthritis of first carpometacarpal joint of right hand; Right PTJ capsulitis; Trigger index finger of left hand; Trigger index finger of right hand; Bilateral carpal tunnel syndrome from Last 3 Months Family History Medical History Relation Name Comments Arthritis Other Diabetes Other Heart disease Other High blood pressure Other Hyperlipidemia Other Lung disease Other Thyroid disease Other Relation Name Status Comments Other Social History Tobacco Use Types Packs/Day Years [...] on file Sexual Orientation Not on file Last Filed Vital Signs Vital Sign Reading Time Taken Comments Blood Pressure - - Pulse - - Temperature - - Respiratory Rate - - Oxygen Saturation - - Inhaled Oxygen Concentration - - Weight 72.6 kg (160 lb) 12/14/2024 2:23 PM EDT Height 157.5 cm (5' 2 ) 12/14/2024 2:23 PM EDT Body Mass Index 29.26 12/14/2024 2:23 PM EDT Plan of Treatment Health Maintenance Due Date Last Done Comments CT Colonography 1955 Colonoscopy 1955 Colorectal Cancer Screening 1955 DXA SCAN 1955 FOBT/FIT 1955 Fit-DNA (Cologuard) 1955 Sigmoidoscopy 1955 Depression Screening (12+) 1967 Hepatitis C Screening 07/30/1973 Shingles Vaccine (Zoster) (1 of 2) 07/30/2005 Pneumococcal 50+ years (2 of 2 - PCV) 12/30/201204/2011 DTAP/TDAP/TD VACCINES (3 - Td or Tdap) 12/30/2021, 06/03/1996 Falls Risk Screening 04/01/2024 Medicare IPPE (Welcome to Medicare) [id number] 04/01/2024 COVID-19 VACCINE (3 - season) 2024, 04/20/2020 Influenza Vaccine (#1) 2024 Tobacco Cessation Counseling and Screening (12+) 12/14/2025 12/14/2024 Breast Cancer Screening 07/01/2026 07/01/2024 Respiratory Syncytial Virus (RSV) Adult or (1 - 1-dose 75+ series) 07/30/2030 Procedures Procedure Name Priority Date/Time Associated Diagnosis Comments FS_[facility]_MODEL GENERAL FORM Routine 12/14/2024 2:37 PM EDT Primary osteoarthritis of first carpometacarpal joint of left hand Primary osteoarthritis of first carpometacarpal joint of right hand Right PTJ capsulitis Trigger index finger of left hand Trigger index finger of right hand from Last 3 Months Results * Bilateral 1st CMCJ injections, Bilateral [...] drainage, nerve damage and poor cosmetic result [place] protocol: Procedure explained and questions answered to [...] immediate complications Jason Wang PA-C PROCEDURE/MINOR SURGICAL ORDE JESUS Final Result from Last 3 Months Insurance [employer]
--- OUTSIDE RECORDS SUMMARY | 2024-12-29 10:42 | XMS_ITS | Referral Summary ---
Author Organization [facility] ([place], [place], [place], [place]) Address [address] [place] [address] Care Team Providers Care Academic Support Director Name Role Phone Unavailable Primary Care Provider Unavailabl e Encounters Date Type Department Care Team Description 12/14/2024 2:00 PM EDT Office Visit [facility] - [address] [place] [id number] Jason Wang PA-C Primary osteoarthritis of first carpometacarpal joint of left hand (Primary Dx); Primary osteoarthritis of first carpometacarpal joint of right hand; Right PTJ capsulitis; Trigger index finger of left hand; Trigger index finger of right hand; Bilateral carpal tunnel syndrome from Last 3 Months Allergies Active Allergy Reactions Criticality Noted Date [...] Ended Active Problems No known active problems Social History Tobacco Use Types Packs/Day Years [...] 12/14/2024 2:23 PM EDT Plan of Treatment Not on file Procedures Procedure Name Priority Date/Time Associated Diagnosis [...] drainage, nerve damage and poor cosmetic result Stonewall protocol: Procedure explained and questions answered to [...] PA-C PROCEDURE/MINOR SURGICAL SUKUMAR LEE Final Result from Last 3 Months Insurance [facility]
--- OUTSIDE RECORDS SUMMARY | 2024-12-29 10:42 | XMS_ITS | Encounter Summary ---
[facility] Address [address] [place] [address] Care Team Providers Care Technology Applications Consultant Name Role Phone Selwyn Zaidi MD Primary Care Provider [phone] Encounter Details Date Type Department Care Team (Latest Contact Info) Description 11/17/2024 Travel Social History Tobacco Use Types Packs/Day Years [...] or training? Not on file Preferred Language Latvian 10/29/2024 Comments No Sex and Gender Information Value Date Recorded Sex Assigned at Female 10/27/2024 4:32 PM EDT Legal Sex Female 12:19 PM EDT Gender Identity Not on file Sexual Orientation Not on file documented as of this encounter Functional Status * Question Answer Date of Assessment Author 1. Wish to be (Past 1 Month) No 025 8:15 AM EDT Colleen Guerra RN 2. Non-Specific Active Suici jeffrey Thoughts (Past 1 Month) No 11/17/2024 8:15 AM EDT Colleen Guerra RN * Calculated C-SSRS Risk Score (Lifetime/Recent) Answer Date of Assessment Author No Risk Indicated 11/17/2024 8:15 AM EDT Brijesh Guerra RN * [place] Suicide Severity Rating Scale (Screener/Recent Self-Report) Question Answer Date of Assessment Author 6. Suicidal Behavior (Lifetime) No 8:15 AM EDT Colleen Guerra RN documented as of this encounter Plan of Treatment Upcoming Encounters Date Type Department Care Team (Late st Contact Info) Description 06/09/2025 2:15 PM EDT Office Visit [facility] [address] [facility] [address] [place] [id number] Eufemia Dickens MD [address] [facility] [address] [place] [address] documented as of this encounter Visit Diagnoses Not on filedocumented in this encounter Care Teams Technology Applications Consultant Relationship Specialty Start Date End Date Selwyn Zaidi MD [address] [facility] [address] [place] [address] PCP - General Internal Medicine 08/07/18 documented as of this encounter
--- OUTSIDE RECORDS SUMMARY | 2024-12-29 10:43 | XMS_ITS | Clinical Summary ---
Author Organization [facility] Address [address] [place] [address] Care Team Providers Care Guest House Manager Name Role Phone Selwyn Zaidi MD Primary Care Provider [phone] Allergies Active Allergy Reactions Criticality Noted Date Comments Amoxicillin-Pot Clavulanate Rash Low 04/13/19 22 Beta lactam allergy details Antibiotic reaction: rash Age at reaction: adult Dose to reaction time: days Reason for antibiotic: other Epinephrine required for reaction?: no Tolerated antibiotics: unknown Latex Rash Low 02/17/2024 Bacitracin-Polymyxin B Rash Low 02/17/2024 Medications Acetaminophen (TYLENOL ARTHRITIS PAIN PO) Take 2 tablets by mouth Daily. 08/08/19 19 Active montelukast (SINGULAIR) 10 MG tablet Take 1 tablet by mouth Every Night. 05/22/19 24 Active LORazepam (ATIVAN) 0.5 MG tablet Take 1 tablet by mouth As Needed for Anxiety. 08/08/19 19 Active pantoprazole (PROTONIX) 40 MG EC tablet Take 1 tablet by mouth Daily. 05/22/19 24 Active traZODone (DESYREL) 100 MG tablet Take 1 tablet by mouth Every Night. 05/22/19 24 Active pravastatin (PRAVACHOL) 80 MG tablet Take 1 tablet by mouth Daily. 05/22/19 24 Active levocetirizine (XYZAL) 5 MG tablet Take 1 tablet by mouth Every Evening. 08/08/19 19 Active azelastine (ASTELIN) 0.1 % nasal spray Administer 2 sprays into the nostril(s) as directed by provider 2 (Two) Times a Day. Use in each nostril as directed 08/08/19 Active fluticasone (FLONASE) 50 MCG/ACT nasal spray Administer 2 sprays into the nostril(s) as directed by provider Daily. 08/08/19 Active albuterol sulfate HFA 108 (90 Base) MCG/ACT inhaler Inhale 1 puff As Needed. 02/18/20 Active dilTIAZem CD (CARDIZEM CD) 120 MG 24 hr capsule Take 1 capsule by mouth Daily. 02/28/20 Active ofloxacin (OCUFLOX) 0.3 % ophthalmic solution Administer 1 drop to both eyes As Needed. 02/08/20 Active Cranberry-Vitamin C-Probiotic (AZO CRANBERRY PO) Take 25,000 mg by mouth Daily. 2 tabs daily 05/22/19 Active ALLERGY SERUM INJECTION Inject under the skin into the appropriate area as directed 1 (One) Time. PRN Active polyethylene glycol (MIRALAX) 17 GM/SCOOP powder Take 17 g by mouth Daily. 05/22/19 Active buPROPion SR (WELLBUTRIN SR) 150 MG 12 hr tablet Take 1 tablet by mouth Daily. 05/22/19 Active losartan (COZAAR) 50 MG tablet Take 2 tablets by mouth Daily. 05/22/19 Active Eye Itch Relief 0.035 % solution INSTILL ONE DROP IN EACH EYE TWICE DAILY NEEDED DIRECTED 03/18/20 Active Wheat Dextrin (BENEFIBER DRINK MIX PO) Take by mouth. Activ e oxyCODONE-acetaminophe n (PERCOCET) 5-325 MG per tabletIndications:Prim sharri hyperparathyroidism Take 1 tablet by mouth Every 6 (Six) Hours As Needed (Pain). 10 tablet 5 1:36 PM EDT 11/18/19 25 Active Active Problems Problem Noted Date Diagnosed Date Primary hyperparathyroidism 02/17/2024 Assessment & Plan (02/17/2024 10:16 AM EST): She appears to have primary hyperparathyroidism which is progressing. We discussed the diagnosis and treatment options. She would qualify for parathyroidectomy. I would like to check serum calcium and 24 hour urine calcium. Will make surgical referral. Essential hypertension 08/07/2018 Hyperlipidemia LDL goal <100 08/07/2018 Chest pain in adult 08/07/2018 Other fatigue 08/07/2018 Encounters Date Type Department Care Team Description 11/17/2024 11:29 AM EDT Anesthesia Event [facility] OR [address] [place] [address] Matt Park Jr., MD 11/17/2024 9:27 AM EDT - 11/17/2024 11:14 AM EDT Surgery [facility] OR [address] [place] [address] Hussein Esparza MD PARATHYROIDECTOMY 11/17/2024 7:48 AM EDT - 11/17/2024 2:42 PM EDT Hospital Encounter [facility] [place] [address] [place] [address] Hussein Esparza MD Primary hyperparathyroidism (Primary Dx); Hyperparathyroidism Discharge Disposition: Home or Self Care 11/17/2024 Travel 10/29/2024 10:30 AM EDT Pre-Admission Testing [facility] PREADMISSION T [address] [place] [address] 10/29/2024 Travel from Last 3 Months Family History Medical History Relation Name Comments Heart disease Mother Heart failure Mother Breast cancer Neg Hx Ovarian cancer Neg Hx Relation Name Status Comments Father Mother Social History Tobacco Use Types Packs/Day Years Used Date Smoking Tobacco: Former Cigarettes Passive Smoke Exposure: Yes Smokeless Tobacco: Never Tobacco Cessation:Counseling Given: Not Answered Alcohol Use Standard Drinks/Week Comments Yes 0 [...] or training? Not on file Preferred Language Swedish 10/29/2024 Comments No Sex and Gender Information [...] Mass Index 29.72 11/17/2024 8:12 AM EDT Plan of Treatment Upcoming Encounters Date Type Department Care Team (Late st Contact Info) Description 06/09/2025 2:15 PM EDT Office Visit [facility] [address] [place] [address] Eufemia Dickens MD [address] [place] [address] Health Maintenance Due Date Last Done Comments LIPID PANEL 1955 COLOGUARD 07/30/2000 COLON CANCER SCREENING 5 YEA R SIGMOIDOSCOPY 07/30/2000 COLONOSCOPY 07/30/2000 COLORECTAL CANCER SCREENING 07/30/2000 CT COLONOGRAPHY 07/30/2000 FECAL OCCULT BLOOD TEST 07/30/2000 FIT Testing (1 year) 07/30/2000 ZOSTER VACCINE (1 of 2) 07/30/2005 Pneumococcal Vaccine 50+ (2 of 2 - PCV) 12/30/2012 12/31/2011 ANNUAL WELLNESS VISIT 08/07/2018 HEPATITIS C SCREENING 08/07/2018 TDAP/TD VACCINES (3 - Td or Tdap) 12/30/2021 012, 06/03/1996 INFLUENZA VACCINE 10/30/2024 COVID-19 Vaccine (3 - 2024-2 6 season) 2024 05/20/2020, 04/20/2020 DXA SCAN 04/28/2026 04/28/2024 MAMMOGRAM 07/04/2026 07/04/2024, 04/0 05/2024, 08/11/2021, Additional history exists Medical Devices Implanted Type Area Shield Cleaner Device Identifier Shelf Expiration Date Model / Serial / Lot Clip Ligat Vasc Horizon Ti Sm Yel 6ct - [id number] Implanted:Qty: 1 on 11/17/2024 by Hussein Esparza MD at [facility] Implant N/A: Neck [employer] [id number] / / Clip Ligat Vasc Horizon Ti Sm Yel 6ct - [id number] Implanted:Qty: 1 on 11/17/2024 by Hussein Esparza MD at [facility] Implant N/A: Neck [employer] [id number] / / Clip Ligat Vasc Horizon Ti Wisam 6ct - [id number] Implanted:Qty: 1 on 11/17/2024 by Hussein Esparza MD at [facility] Implant N/A: Neck [employer] [id number] / / Clip Ligat Vasc Horizon Ti Wisam 6ct - [id number] Implanted:Qty: 1 on 11/17/2024 by Hussein Esparza MD at [facility] Implant N/A: Neck [employer] [id number] / / Hemost Abs Surgicel Orig 4x8in [facility] - [id number] Implanted:Qty: 1 on 11/17/2024 by Hussein Esparza MD at [facility] Implant N/A: Neck [employer] J [employer] J / / Procedures Procedure Name Priority Date/Time Associated Diagnosis Comments TISSUE PATHOLOGY EXAM Routine 11/17/2024 12:09 PM EDT Hyperparathyroidism ANESTHESIA INTUBATION Routine 11/17/2024 11:51 AM EDT PARATHYROIDECTOMY 11/17/2024 11:14 AM EDT Hyperparathyroidism, primary Special Needs ++ ECG 12-LEAD Routine 10/29/2024 11:03 AM EDT CBC (NO DIFF) Routine 10/29/2024 10:39 AM EDT POTASSIUM Routine 10/29/2024 10:39 AM EDT SCANNED EKG 10/29/2024 MAMMO SCREENING DIGITAL TOMOSYNTHESIS BILATERAL W CAD Routine 07/01/2024 11:43 AM EDT Screening mammogram for breast cancer DEXA BONE DENSITY AXIAL Routine 04/28/2024 11:56 AM EST Primary hyperparathyroidism from Last 3 Months or Most Recently Relevant to Health Maintenance Results * Tissue Pathology Exam (11/17/2024 12:09 PM EDT) Case Report Surgical Pathology Report Case: [id number] Authorizing Provider: Hussein Esparza MD Collected: 11/17/2024 12:09 PM Ordering Location: [facility] Received: 11/17/2024 12:26 PM OR Pathologist: Ema Pta MD Specimen: Parathyroid Gland, LEFT INFERIOR PARATHYROID FS 12:29 PM EDT [facility] Clinical Information Hyperparathyroidism 12:29 PM EDT [facility] Final Diagnosis Thyroid gland, left inferior, parathyroidectomy: Hypercellular parathyroid tissue 12:29 PM EDT [facility] at 1229 EDT Intraoperative Consultation Frozen section: Verbal report given to Dr. Esparza via speakerphone on 11/17/2024 at 12:26 EDT. FROZEN SECTION DIAGNOSIS: Parathyroid gland 1 block; 1 frozen section slide Stains used for Immediate Evaluation are acceptable. 12:29 PM EDT [facility] Gross Description 1. Parathyroid Gland. Received fresh for frozen section labeled left inferior parathyroid FS is a less than 1 g, 1.1 x 0.6 x 0.6 cm red-cerda nodule. A fraud representative section is submitted for frozen section and resubmitted in block 1A. The remainder of the specimen is submitted in block 1B. LDP 12:29 PM EDT [facility] Microscopic Description The slides are reviewed and demonstrate histopathologic features supporting the above rendered diagnosis. 12:29 PM EDT [facility] Tissue Parathyroid structure / Unknown 11/17/2024 12:09 PM EDT 11/17/2024 12:26 PM EDT Hussein Esparza MD PATHOLOGY/CYTOLOGY ORDERAB LES Final Result [facility]
[address] [place] [address], * BH AN ETT AIRWAY (11/17/2024 11:51 AM EDT) Narrative Lilibeth Duarte CRNA - 11/17/2024 11:51 AM EDT Lilibeth Duarte CRNA 11/17/2024 11:51 AM Airway Reason: elective Date/Time: 11/17/2024 11:38 AM Airway not difficult General Information and Staff Patient location during procedure: OR FABIOLA/CAA: Lilibeth Duarte CRNA Indications and Patient Condition [...] bilaterally with symmetric chest rise and fall us Matt Park Jr., MD ANESTHESIA ORDERABLES F inal Result * ECG 12 Lead (10/29/2024 11:03 AM EDT) Pathologist [facility] QT Interval 364 ms ECG QTC Interval 414 ms ECG 10/29/2024 11:0 3 AM EDT 10/29/2024 1:43 PM EDT Narrative ECG - 10/29/2024 1:43 PM EDT Test Reason : Pre-Op / Pre-Procedure Blood Pressure : */* mmHG Vent. Rate : 78 BPM Atrial Rate : 78 BPM P-R Int : 182 ms QRS Dur : 92 ms QT Int : 364 ms P-R-T Axes : 61 31 64 degrees QTcB Int : 414 ms Sinus rhythm with occasional premature ventricular complexes Otherwise normal ECG No previous ECGs available Confirmed by CHATA ROMAN MD ([id number]) on 10/29/2024 1:43:44 PM Referred By: Confirmed By: CHATA ROMAN MD Procedure Note Chata Roman MD - 10/29/2024 Test Reason : Pre-Op / Pre-Procedure Blood Pressure : */* mmHG Vent. Rate : 78 BPM Atrial Rate : 78 BPM P-R Int : 182 ms QRS Dur : 92 ms QT Int : 364 ms P-R-T Axes : 61 31 64 degrees QTcB Int : 414 ms Sinus rhythm with occasional premature ventricular complexes Otherwise normal ECG No previous ECGs available Confirmed by CHATA ROMAN MD ([id number]) on 10/29/2024 1:43:44 PM Referred By: Confirmed By: CHATA ROMAN MD us Hussein Esparza MD ECG ORDERABLES Final Resu lt BH ECG * CBC (No Diff) (10/29/2024 10:39 AM EDT) WBC 6.90 3.40 - 10.80 10*3/mm3 10/29/2024 11:14 AM EDT [facility] RBC 4.23 3.77 - 5.28 10*6/mm3 10/29/2024 11:14 AM EDT [facility] Hemoglobin 12.3 12.0 - 15.9 g/dL 10/29/2024 11:14 AM EDT [facility] Hematocrit 37.9 34.0 - 46.6 % 10/29/2024 11:14 AM EDT [facility] MCV 89.6 79.0 - 97.0 fL 10/29/2024 11:14 AM EDT [facility] MCH 29.1 26.6 - 33.0 pg 10/29/2024 11:14 AM EDT [facility] MCHC 32.5 31.5 - 35.7 g/dL 10/29/2024 11:14 AM EDT [facility] RDW 12.3 12.3 - 15.4 % 10/29/2024 11:14 AM EDT [facility] RDW-SD 40.2 37.0 - 54.0 fl 10/29/2024 11:14 AM EDT [facility] MPV 9.5 6.0 - 12.0 fL 10/29/2024 11:14 AM EDT [facility] Platelets 178 140 - 450 10*3/mm3 10/29/2024 11:14 AM EDT [facility] Blood Venipuncture / Unknown 10/29/2024 10:39 AM EDT 10/29/2024 11:06 AM EDT us Hussein Esparza MD LAB BLOOD ORDERABLES Final Result Performing Organization Address City/[facility]/ZIP Co de Phone Number [facility]
[address] [place] [address], * Potassium (10/29/2024 10:39 AM EDT) Potassium 4.5 3.5 - 5.2 mmol/L 10/29/2024 11:30 AM EDT [facility] Blood Venipuncture / Unknown 10/29/2024 10:39 AM EDT 10/29/2024 11:06 AM EDT us Hussein Esparza MD LAB BLOOD ORDERABLES Final Result Performing Organization Address [facility] Co de Phone Number [facility]
[address] [place] [address], * ECG Scan (10/29/2024) [facility] ECG ORDERABLES Final Result * Mammo Screening Digital Tomosynthesis Bilateral With CAD (07/01/2024 11:43 AM EDT) Anatomical Region Laterality Modality Breast N/A Mammography 07/04/2024 1:25 PM EDT Impressions 07/04/2024 1:27 PM EDT No suspicious abnormality identified. OVERALL ASSESSMENT: ACR BI-RADS CATEGORY: 1, NEGATIVE: Recommend continued routine annual screening mammogram. The standard false-negative rate of mammography is between 10% and 25%. Complex patterns or increased breast density will markedly elevate the false-negative rate of mammography. A letter, in lay terminology, with the results of this exam will be mailed to the patient. 07/04/2024 1:27 PM by Arelis Medina MD on Narrative 07/04/2024 1:27 PM EDT BILATERAL DIGITAL SCREENING MAMMOGRAM WITH TOMOSYNTHESIS CLINICAL INDICATION: Screening mammogram. TECHNIQUE: Bilateral low dose full field digital breast tomosynthesis imaging was performed. CAD was utilized. COMPARISON: Priors dating back to 09/08/2014. FINDINGS: The breast tissue is heterogeneously dense. RIGHT BREAST: No suspicious masses, calcifications, or areas of distortion are seen. LEFT BREAST: No suspicious masses, calcifications, or areas of distortion are seen. Selwyn Zaidi MD [facility] MAMMOGRAPHY ORDERABLES Fin al Result * DEXA Bone Density Axial (04/28/2024 11:56 AM EST) Anatomical Region Laterality Modality Wrist, Hip, L-spine N/A Bone Density 04/28/2024 11:5 8 AM EST Impressions 05/01/2024 5:29 PM EST Osteopenia of the L1-L4 vertebrae, and femoral necks bilaterally. The ten year fracture risk assessment is calculated at 13% for major systemic osteoporotic fracture and 2.5% for a hip fracture. Less than 3% risk in the [place] for hip fracture and less than 20% risk of any systemic osteoporotic fracture is considered less than the threshold for where pharmacological therapy is recommended by the National Osteoporosis Foundation. All the treatment decisions require clinical judgment and consideration of individual patient factors, including patient preferences, co-morbidities, previous drug use, risk factors not captured in the FRAX model (frailty, falls, vitamin D deficiency, increased bone turnover, interval significant decline in bone density) and possible under or over estimation of fracture risk by FRAX. Approaches to reduce osteoporosis related fracture risk include optimizing calcium and vitamin D status, appropriate weight bearing exercises and fall-prevention measurements. The National Osteoporosis Foundation recommends (http://www.nof.org/hcp/practice/cjyolwbz-jhb-jhcxmewn-guidelines/clinicians-richard de) that FDA-approved medical therapies be considered in postmenopausal women and men aged equal or greater than 50 years with : a) hip or vertebral (clinical or morphometric) fracture; b) T-score of -2.5 or less at the spine or hip; c) Ten-year fracture probability by FRAX of greater than 3% for hip fracture of greater than 20% for major osteoporotic fracture. Secondary causes of bone loss should be evaluated if clinically indicated since the etiology of low BMD cannot be determined by BMD measurement alone. FOLLOWUP: Consider repeating the study in 2-3 years to reassess the patient's status or sooner if there is some new clinical indication. INTERVAL CHANGE: There were no equivalent studies available for comparison. At this facility, the least significant change in the BMD at the left hip with 95% confidence is 0.404316 gm/cm2 at the hip and 0.951433 g/cm2 at the lumbar spine. Report dictated by: Ema Newell PA-c I have personally reviewed this case and agree with the findings above: Electronically Signed: Jorgito Singleton MD 05/01/2024 5:29 PM EST Workstation ID: [id number] Narrative 05/01/2024 5:29 PM EST DUAL-ENERGY X-RAY ABSORPTIOMETRY (DXA) INDICATION: Postmenopausal, screening for osteoporosis, hysterectomy COMPARISON: There are no equivalent studies available for comparison PROCEDURE: A DXA scan was performed using a Hologic densitometer. The lumbar spine L1-L4 was evaluated as well as bilateral total hip. The T-score compares the patient's bone mineral density with the peak bone mass of young normal patients. According to criteria established by the World Health Organization, patients with T-scores between 1.0 and 2.5 standard deviations BELOW the mean are osteopenic (low bone mass). Patients with T-scores EQUAL TO OR GREATER than 2.5 standard deviations below the mean are osteoporotic. The Z-score compares the patient bone mineral density with age and sex matched peers. According to the International Society for Clinical Densitometry's 2007 consensus conference: In women prior to menopause and men less than age 50, Z-scores, not T-scores are preferred. A Z-score of -2.0 or lower is defined as below the expected range for age and a Z-score above -2.0 is within the expected range for age. The WHO diagnostic criteria may be applied in women in the menopausal transition. Osteoporosis cannot be diagnosed in men under age 50 on the basis of BMD alone. TECHNICAL QUALITY: The study is of good technical quality. RESULTS: Lumbar Spine: The BMD measured in the L1-L4 region is 0.915 g/cm2. The average T-score is -1.2. The Z-score is 0.8. Total Hip: The BMD measured at the left total proximal femur is 0.919 g/cm2. The T-score is -0.2. The Z-score is 1.2. Femoral Neck: The BMD measured at the left femoral neck is 0.654 g/cm2. The T-score is -1.8. The Z-score is 0.0. Total Hip: The BMD measured at the right total proximal femur is 0.895 g/cm2. The T-score is -0.4. The Z-score is 1.0. Femoral neck: The BMD measured at the right femoral neck is 0.599 g/cm2. The T score is -2.3. The Z score is -0.5. Procedure Note Jorgito Singleton MD - 05/01/2024 DUAL-ENERGY X-RAY ABSORPTIOMETRY (DXA) INDICATION: Postmenopausal, screening for osteoporosis, hysterectomy COMPARISON: There are no equivalent studies available for comparison PROCEDURE: A DXA scan was performed using a Hologic densitometer. The lumbar spine L1-L4 was evaluated as well as bilateral total hip. The T-score compares the patient's bone mineral density with the peak bonemass of young normal patients. According to criteria established by the[facility] Health Organization, patients with T-scores between 1.0 and 2.5standard deviations BELOW the mean are osteopenic (low bone mass). Patients with T-scores EQUAL TO ORGREATER than 2.5 standard deviations below the mean are osteoporotic. The Z-score compares the patient bone mineral density with age and sexmatched peers. According to the International Society for ClinicalDensitometry's 2007 consensus conference: In women prior to menopause andmen less than age 50, Z-scores, not T-scores are preferred. A Z-score of -2.0 or lower is defined as belowthe expected range for age and a Z-score above -2.0 is within theexpected range for age. The WHO diagnostic criteria may be applied inwomen in the menopausal transition. Osteoporosis cannot be diagnosed in men under age 50 on the basis of BMDalone. TECHNICAL QUALITY: The study is of good technical quality. RESULTS: Lumbar Spine: The BMD measured in the L1-L4 region is 0.915 g/cm2. Theaverage T- score is -1.2. The Z-score is 0.8. Total Hip: The BMD measured at the left total proximal femur is 0.919g/cm2. The T-score is -0.2. The Z-score is 1.2. Femoral Neck: The BMD measured at the left femoral neck is 0.654 g/cm2.The T- score is -1.8. The Z-score is 0.0. Total Hip: The BMD measured at the right total proximal femur is 0.895g/cm2. The T-score is -0.4. The Z-score is 1.0. Femoral neck: The BMD measured at the right femoral neck is 0.599 g/cm2.The T score is -2.3. The Z score is -0.5. IMPRESSION: Osteopenia of the L1-L4 vertebrae, and femoral necks bilaterally. The ten year fracture risk assessment is calculated at 13% for majorsystemic osteoporotic fracture and 2.5% for a hip fracture. Less than 3%risk in the [place] for hip fracture and less than 20% risk of anysystemic osteoporotic fracture is considered less than the threshold for where pharmacological therapy isrecommended by the National Osteoporosis Foundation. All the treatment decisions require clinical judgment and consideration ofindividual patient factors, including patient preferences, co-morbidities,previous drug use, risk factors not captured in the FRAX model (frailty,falls, vitamin D deficiency, increased bone turnover, interval significant decline in bone density) andpossible under or over estimation of fracture risk by FRAX. Approaches toreduce osteoporosis related fracture risk include optimizing calcium andvitamin D status, appropriate weight bearing exercises and fall-prevention measurements. The NationalOsteoporosis Foundation recommends(http://www.nof.org/hcp/practice/icabvgbs-uwv-kzuethbe-guidelines/clin ician s-guide) that FDA-approved medical therapies be considered in postmenopausal women and men aged equal or greater than 50 years with :a) hip or vertebral (clinical or morphometric) fracture; b) T-score of-2.5 or less at the spine or hip; c) Ten-year fracture probability by FRAXof greater than 3% for hip fracture of greater than 20% for major osteoporotic fracture. Secondary causes of bone loss should be evaluated if clinically indicatedsince the etiology of low BMD cannot be determined by BMD measurementalone. FOLLOWUP: Consider repeating the study in 2-3 years to reassess thepatient's status or sooner if there is some new clinical indication. INTERVAL CHANGE: There were no equivalent studies available forcomparison. At this facility, the least significant change in the BMD at the left hipwith 95% confidence is 0.228841 gm/cm2 at the hip and 0.348833 g/cm2 atthe lumbar spine. Report dictated by: Ema Newell PA-c I have personally reviewed this case and agree with the findings above: Electronically Signed: Jorgito Singleton MD 05/01/2024 5:29 PM EST Workstation ID: [id number] us Renard Brown MD IMG DXA ORDERABLES Final Result from Last 3 Months or Most Recently Relevant to Health Maintenance Insurance [facility] Medicare Advantage [employer] PPO Advance Directives * CPR (Attempt to Resuscitate) (Latest Code Status on File) Date Activated Date Inactivated Comments 06/27/2023 8:02 AM 11/17/2024 7:49 AM No physician signature needed for this code status. Josemanuel as Signed. Care Teams Guest House Manager Relationship Specialty Start Date End Date Selwyn Zaidi MD [address] [facility] [address] [place] [id number] PCP - General Internal Medicine 08/07/18
== END 2024-12-28 23:59 | disposition home or self-care (01) ==
LOC: LAB.DROPOF 12-29 10:34
PROVIDERS: PCP Internal Medicine; Visit Provider Internal Medicine
DX: I10 Essential (primary) hypertension (principal); E78.5 Hyperlipidemia, unspecified; E21.3 Hyperparathyroidism, unspecified; M15.0 Primary generalized (osteo)arthritis
CPT/HCPCS: 80053; 80061; 82652; 83970; 85025

== ENCOUNTER 2025-03-18 14:30 | Outpatient (CLI) | payer MEDICARE, SELFPAY ==
[2025-03-18 17:37] LABS: Calcium 9.6 mg/dl (8.4-10.2)
--- OUTSIDE RECORDS SUMMARY | 2025-03-19 11:02 | XMS_ITS | Referral Summary ---
Author Organization [facility] ([place], [place], [place], [place], [place]) Address [address] [place] [address] Care Team Providers Care Mutual Fund Analyst Name Role Phone Unavailable Primary Care Provider [...] anxiety. Max Daily Amount: 2 mg Active Active Problems No known active problems Social [...] EDT Plan of Treatment Not on file Insurance [facility] MEDICARE ADVANTAGE
--- OUTSIDE RECORDS SUMMARY | 2025-03-19 11:02 | XMS_ITS | Clinical Summary ---
Author Organization [employer] ([place], [place], [place], [place], [place]) Address [address] [place] [address] Care Team Providers Care Derrick Engineer Name Role Phone Unavailable Primary Care Provider [...] Active Active Problems No known active problems Family History Medical History Relation Name Comments [...] or (1 - 1-dose 75+ series) 07/30/2030 Insurance [facility] MEDICARE ADVANTAGE
--- OUTSIDE RECORDS SUMMARY | 2025-03-19 11:03 | XMS_ITS | Clinical Summary ---
Author Organization [facility] Address [address] [place] [address] Care Team Providers Care Control Board Operator Name Role Phone Selwyn Zaidi MD Primary Care Provider [phone] Allergies Active Allergy Reactions Criticality Noted Date [...] pain in adult 08/07/2018 Other fatigue 08/07/2018 Family History Medical History Relation Name Comments [...] or training? Not on file Preferred Language Sudanese 10/29/2024 Comments No Sex and Gender Information [...] Description 06/09/2025 2:15 PM EDT Office Visit [facility] [address] [place] [address] Eufemia Dickens MD [address] [facility] [address] [place] [address] Health Maintenance Due Date Last Done Comments LIPID PANEL 1955 COLOGUARD 07/30/2000 COLON CANCER SCREENING 5 YEA R SIGMOIDOSCOPY 07/30/2000 COLONOSCOPY 07/30/2000 COLORECTAL CANCER SCREENING 07/30/2000 CT COLONOGRAPHY 07/30/2000 FECAL OCCULT BLOOD TEST 07/30/2000 FIT Testing (1 year) 07/30/2000 ZOSTER VACCINE (1 of 2) 07/30/2005 Pneumococcal Vaccine 50+ (2 of 2 - PCV) 12/30/2012 12/31/2011 ANNUAL WELLNESS VISIT 08/07/2018 HEPATITIS C SCREENING 08/07/2018 COVID-19 Vaccine (3 - Modern a risk series) 06/17/2020 05/20/2020, 04/20/2020 TDAP/TD VACCINES (2 - Td or Tdap) 12/30/2021 012, 06/03/1996 INFLUENZA VACCINE 10/30/2024 DXA SCAN 04/28/2026 04/28/2024 MAMMOGRAM 07/04/2026 07/04/2024, 04/0 05/2024, 08/11/2021, Additional history exists Medical Devices Implanted Type Area 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 Shelf Expiration Date Model / Serial / Lot Clip Ligat Vasc Horizon Ti Sm Yel 6ct - [id number] Implanted:Qty: 1 on 11/17/2024 by Hussein Esparza MD at [facility] Implant N/A: Neck [employer] [id number] / / Clip Ligat Vasc Horizon Ti Sm Yel 6ct - [id number] Implanted:Qty: 1 on 11/17/2024 by Hussein Esparza MD at [facility] Implant N/A: Neck [employer] [id number] / / Clip Ligat Vasc Horizon Ti Wisam 6ct - [id number] Implanted:Qty: 1 on 11/17/2024 by Hussein Esparza MD at [facility] Implant N/A: Neck [employer] [id number] / / Clip Ligat Vasc Horizon Ti Wisam 6ct - [id number] Implanted:Qty: 1 on 11/17/2024 by Hussein Espraza MD at [facility] Implant N/A: Neck [employer] [id number] / / Hemost Abs Surgicel Orig 4x8in Strl - [id number] Implanted:Qty: 1 on 11/17/2024 by Hussein Esparza MD at [facility] Implant N/A: Neck [employer] DIV OF J AND J 2S / / Procedures Procedure Name Priority Date/Time Associated Diagnosis Comments SCANNED - LABS 01/15/2025 MAMMO SCREENING DIGITAL TOMOSYNTHESIS BILATERAL W CAD Routine 07/01/2024 11:43 AM EDT Screening mammogram for breast cancer DEXA BONE DENSITY AXIAL Routine 04/28/2024 11:56 AM EST Primary hyperparathyroidism from Last 3 Months or Most Recently Relevant to Health Maintenance Results * LABS SCANNED (01/15/2025) us Hussein Esparza MD LAB BLOOD ORDERABLES Final Result * Mammo Screening Digital [...] of distortion are seen. Selwyn Zaidi MD IMG MAMMOGRAPHY ORDERABLES Fin al Result * DEXA [...] fall-prevention measurements. The National Osteoporosis Foundation recommends (http://www.nof.org/hcp/practice/jyrvrwax-bmo-cvfvwifu-guidelines/clinicians-richard de) that FDA-approved medical therapies be considered [...] the left hip with 95% confidence is 0.602270 gm/cm2 at the hip and 0.894123 g/cm2 at the lumbar spine. Report dictated by: Ema Newell PA-c I have personally reviewed this case and agree with the findings above: Electronically Signed: Jorgito Singleton MD 05/01/2024 5:29 PM EST Workstation ID: [id number] Narrative 05/01/2024 5:29 PM EST DUAL-ENERGY X-RAY [...] normal patients. According to criteria established by the[facility], patients with T-scores between 1.0 [...] exercises and fall-prevention measurements. The NationalOsteoporosis Foundation recommends(http://www.nof.org/hcp/practice/ipwgoxhe-odc-ijkktcnz-guidelines/clin ician s-guide) that FDA-approved medical therapies be [...] at the left hipwith 95% confidence is 0.079085 gm/cm2 at the hip and 0.085221 g/cm2 atthe lumbar spine. Report dictated by: Ema Newell PA-c I have personally reviewed this case and agree with the findings above: Electronically Signed: Jorgito Singleton MD 05/01/2024 5:29 PM EST Workstation ID: [id number] Renard Brown MD IM DXA ORDERABLES Final Result from Last 3 Months or Most Recently Relevant to Health Maintenance Insurance [facility] Medicare Advantage [employer] PPO Advance Directives * CPR (Attempt to Resuscitate) (Latest Code Status on File) Date Activated Date Inactivated Comments 06/27/2023 8:02 AM 11/17/2024 7:49 AM No physician signature needed for this code status. Josemanuel as Signed. Care Teams Control Board Operator Relationship Specialty Start Date End Date Selwyn Zaidi MD [address] [facility] [address] [facility] [id number] [id number] PCP - General Internal Medicine 08/07/18
== END 2025-03-18 23:59 | disposition home or self-care (01) ==
LOC: LAB.DROPOF 03-19 11:00
PROVIDERS: PCP Internal Medicine; Visit Provider Internal Medicine
DX: E87.5 Hyperkalemia (principal)
CPT/HCPCS: 82310